=== PATIENT | female | born 1960 | race Caucasian/White ===

== ENCOUNTER 2017-05-08 17:02 | Emergency (ER) | payer BC ==
[2017-05-08 17:07] VITALS: BP 184/81; PULSE 71; RESP 16; TEMP 96.8
--- NOTE | 2017-05-08 17:35 | XR ---
EXAMINATION TYPE: XR lumbar spine 2 or 3V DATE OF EXAM: 05/08/2017 COMPARISON: NONE HISTORY: Back pain TECHNIQUE: 3 views FINDINGS: The lumbar vertebra have fairly normal alignment. Posterior elements are intact. There is s ome spurring of the endplates. There is no significant disc space narrowing. Sacroiliac joints appear normal. There is no compression fracture. IMPRESSION: Mild degenerative spur formation. No fracture.
--- NOTE | 2017-05-08 17:38 | ED ---
Back Pain HPI - General Chief Complaint: Back Pain/Injury Stated Complaint: Left Back Leg Pain Time Seen by Provider: 05/08/17 17:16 Source: patient, RN notes reviewed Limitations: no limitations - History of Present Illness Initial Comments: This is a 57-year-old female with history of herniated lumbar discs who presents to the emergency department with chief complaint of low back pain. Patient states since yesterday she has been experiencing increasing amount of low back pain. She states she feels she may have herniated another disc. She reports she has had back surgery this past July 2016. She reports that she called her surgeon this morning who recommended that she contact her PCP for prescription for steroids. She is unable to follow up with her PCP until this coming Sunday. She presents today with request for steroids until she is able to follow up with PCP. Patient states that pain is localized to left side of the lumbar spine with radiation down posterior thigh. She describes the pain as sharp and stabbing. She reports that she takes gabapentin and 800 mg of ibuprofen 3 times a day for lumbar radiculopathy. She reports that this pain is similar to her previous history of herniated disks. She denies saddle parasthesias or loss of bladder or bowel function. Denies fever, chills, chest pain, shortness of breath, abdominal pain, nausea or vomiting, constipation or diarrhea, dysuria or hematuria, headache or vision changes. - Related Data Previous Rx's Medication Instructions Recorded predniSONE 20 mg PO BID #10 tab 05/08/17 Allergies Allergy/AdvReac Type Severity Reaction Status Date / Time No Known Allergies Allergy Verified 05/08/17 17:07 Review of Systems ROS Statement: Those systems with pertinent positive or pertinent negative responses have been documented in the HPI. ROS Other: All systems not noted in ROS Statement are negative. Past Medical History Past Medical History: Hyperlipidemia, Hypertension, Thyroid Disorder Additional Past Medical History / Comment(s): back pain History of Any Multi-Drug Resistant Organisms: None Reported Past Surgical History: Back Surgery, Tonsillectomy Past Psychological History: No Psychological Hx Reported Smoking Status: Former smoker Past Alcohol Use History: None Reported Past Drug Use History: None Reported General Exam - General Exam Comments Initial Comments: General: Awake and alert, well-developed; tearful and appears to be in pain. HEENT: Head atraumatic, normocephalic. Pupils are equal, round and reactive to light. Extraocular movements intact. Neck: Supple. Normal ROM. Cardiovascular: Regular rate and rhythm. No murmurs, rubs or gallops. Chest symmetrical. Respiratory: Lungs clear to auscultation bilaterally. No wheezes, rales or rhonchi. Normal respiratory effort with no use of accessory muscles. Musculoskeletal: Tenderness on palpation of left paraspinous muscles and SI joint. No bony point tenderness of vertebrae. Normal range of motion of lumbar spine. Sensation is intact. Pedal pulses 2+ equal and palpable bilaterally. Skin: Plover, warm and dry without rashes or lesions. Neurological: Alert and oriented x3. CN II-XII grossly intact. Speech is fluent and answers are appropriate. No focal neuro deficits. Psychiatric: Normal mood and affect. No overt signs of depression or anxiety noted. Limitations: no limitations Course Vital Signs 05/08/17 17:03 Temperature 96.8 F L Pulse Rate 71 Respiratory 16 Rate Blood Pressure 184/81 O2 Sat by Pulse 95 Oximetry Medical Decision Making - Medical Decision Making This is a 57-year-old female with history of herniated disks that presents today with complaint of acute on chronic low back pain with radiation down left posterior thigh. X-ray reveals no acute abnormalities. Shows mild degenerative spurring. Patient reports current low back pain feels like prior episodes of disc herniation. She requests a prescription for steroids until she is able to follow up with her primary care provider and back surgeon. She' ll be discharged home with a prescription for prednisone for the next 5 days. Patient is in agreement and voices understanding. All questions were answered. - Radiology Data Radiology results: report reviewed X-ray lumbar spine findings: The lumbar vertebra have fairly normal alignment. Posterior elements are intact. There is some spurring of the end plates. There is no significant disc space narrowing. Sacroiliac joints appear normal. There is no compression fracture. Impression: Mild degenerative spur formation. No fracture. Disposition Clinical Impression: Lumbar radiculopathy Disposition: HOME SELF-CARE Condition: Good Instructions: Lumbar Radiculopathy (ED) Additional Instructions: Please take medications as prescribed. Please follow up with primary care provider within 1-2 days and as scheduled. Return to emergency department if symptoms should worsen or any concerns arise. Prescriptions: predniSONE 20 mg PO BID #10 tab Referrals: Jacinto Saucedo DO [Primary Care Provider] - 1-2 days Time of Disposition: 17:48
== END 2017-05-08 17:56 | disposition home or self-care (01) ==
LOC: EC 17:02
DX: M54.16 Radiculopathy, lumbar region (principal); M46.06 Spinal enthesopathy, lumbar region; Z87.891 Personal history of nicotine dependence; Z98.890 Other specified postprocedural states
CPT/HCPCS: 72100; 99283

== ENCOUNTER → 2018-07-03 | Outpatient (CLI) | payer OTHER ==
--- NOTE | 2018-07-03 12:54 | CT ---
EXAMINATION TYPE: CT abdomen pelvis wo con DATE OF EXAM: 07/03/2018 COMPARISON: None HISTORY: Stimulator surgery 06-20-18, pain and spasms after voiding, abdominal pain and microscopic he maturia. CT DLP: 1907.9 mGycm Automated exposure control for dose reduction was used. TECHNIQUE: Helical acquisition of images was performed from the lung bases through the pelvis. FINDINGS: LUNG BASES: No significant abnormality is appreciated. LIVER/GB: There are scattered hypoattenuated hepatic lesions seen on image 53, 40, and 36 that are martínez bcentimeter and too small to accurately characterize. Within the left hepatic lobe there is a 2.0 cm simple cyst that is fluid attenuated. PANCREAS: No significant abnormality is seen. SPLEEN: No significant abnormality is seen. Multiple splenules are seen adjacent to the venetie spleen . ADRENALS: No nodularity or thickening. KIDNEYS: The kidneys have lobulated contours but are otherwise symmetric without hydronephrosis or ne phrolithiasis. FREE AIR: No free air is visualized URINARY BLADDER: Urinary bladder is incompletely distended and demonstrates bowel wall thickening, l ikely attributable to incomplete distention. Urinalysis could assess for cystitis. ADENOPATHY: No greater than 1 cm short axis lymph nodes are seen within the abdomen or pelvis given the limitation of lack of intravenous contrast. OSSEOUS STRUCTURES: Spinal nerve root stimulator is placed within the left gluteal soft tissues and e xtends through the subcutaneous tissues to enter the lower thoracic epidural space. This creates spra y artifact and limits evaluation of the stranding structures. At the lower thoracic levels (postsurgi kade site) of T9-T11 there is subcutaneous fat stranding and phlegmonous change. Lack of intravenous c ontrast limits evaluation for abscess. Multilevel degenerative change of the spine is mild to moderat e. BOWEL: There are a few scattered colonic diverticula are seen. No dilated large or small bowel is no casi. Mild amount of retained colonic stool is seen. Appendix is air-filled and within normal limits. OTHER: Abdominal aorta is of normal course and caliber. IMPRESSION: 1. SUBCUTANEOUS EDEMA AND PHLEGMONOUS CHANGES OVERLYING THE LOWER THORACIC SPINE AT THE SITE OF POSTS URGICAL CHANGE. MRI WITH CONTRAST COULD ASSESS FOR EPIDURAL FLUID COLLECTION, SUBCUTANEOUS FLUID MELODIE ECTION/ABSCESS OR FIBROSIS IF THERE IS FURTHER CLINICAL CONCERN. 2. URINARY BLADDER DEMONSTRATES BOWEL WALL THICKENING CIRCUMFERENTIALLY THAT IS LIKELY ATTRIBUTABLE T O INCOMPLETE DISTENTION HOWEVER CORRELATION WITH URINALYSIS COULD BE PERFORMED TO EXCLUDE CYSTITIS. 3. SIMPLE APPEARING HEPATIC CYST AND MULTIPLE SMALLER HYPOATTENUATED HEPATIC LESIONS THAT ARE TOO SMA LL TO ACCURATELY CHARACTERIZE.
== END ==
LOC: RADCTMAIN 12:14
PROVIDERS: ATTEND Family Medicine
DX: K76.89 Other specified diseases of liver (principal)
CPT/HCPCS: 74176

== ENCOUNTER → 2018-10-28 | Outpatient (CLI) | payer OTHER ==
--- NOTE | 2018-10-28 19:15 | BD ---
EXAMINATION TYPE: Axial Bone Density DATE OF EXAM: 10/28/2018 COMPARISON: NONE CLINICAL HISTORY: 58-year-old female disorder bone Height: 64 IN Weight: 220 LBS RISK FACTORS HISTORY OF: Surgery to Spine: YES LUMBAR AND THORACIC; SPINAL CORD STIMULATOR When: Active: MODERATE Postmenopausal woman: AGE 53 MEDICATIONS: Thyroid Medications: YES Which medication: Levothyroxine How Lon + YEARS Additional Medications: LEVOTHYROXINE, VIT D, GABAPENTIN, SPIROLACTONE, BLOOD PRESSURE MEDS, CYMBALTA , ASPIRIN, IBUPROFEN,ZINC, VIT C, FLONASE, WEIGHT LOSS PILL EXAM MEASUREMENTS: Bone mineral densitometry was performed using the [employer]. PT HAS A SPINAL CORD STIMULATOR THAT SHOWS UP IN LT HIP . Bone mineral density about the R hip (g/cm2): 0.887 Bone mineral density about the L hip (g/cm2): 1.025 T Score values are as follows: -----R Neck: -1.1 -----L Neck: -0.1 -----R Total: 1.1 -----L Total: 1.3 Bone mineral density BASELINE Bone mineral density about the L Wrist (g/cm2): 0.647 T Score values are as follows: -----Dist. R+U: 0.8 -----Prox. R+U: 0.0 -----Radius total: -0.4 Bone mineral density BASELINE IMPRESSION: Osteopenia (T Score between -2.5 and -1). There is slightly increased risk of fracture and the patient may be considered for treatment. Re-Screen 2-5 years. NOTE: T-SCORE=SD OF THE YOUNG ADULT MEAN.
--- NOTE | 2018-11-06 14:00 | MM ---
Reason for exam: screening (asymptomatic). Last mammogram was performed 3 years and 1 month ago. History: Patient is postmenopausal. Family history of breast cancer in paternal aunt at age 50. Physical Findings: A clinical breast exam by your physician is recommended on an annual basis and results should be correlated with mammographic findings. MG Screening Mammo w CAD Bilateral CC and MLO view(s) were taken. Prior study comparison: October 07, 2015, mammogram, [place] at [facility] [place]. The breast tissue is heterogeneously dense. This may lower the sensitivity of mammography. There is a 2mm group of calcifications in the upper outer quadrant at middle depth on the right breast. Left central outer focal asymmetry at middle depth. ASSESSMENT: Incomplete: need additional imaging evaluation, BI-RAD 0 RECOMMENDATION: Special view mammogram of both breasts. If lesion persists on supplemental views, image directed ultrasound is recommended. [facility] will attempt to contact patient to return for supplemental views and ultrasound if indicated.
== END ==
LOC: RADMAMWWP 14:40
PROVIDERS: ATTEND Family Medicine
DX: Z12.31 Encounter for screening mammogram for malignant neoplasm of breast (principal); M85.80 Other specified disorders of bone density and structure, unspecified site
CPT/HCPCS: 77067; 77080

== ENCOUNTER → 2018-11-11 | Outpatient (CLI) | payer OTHER ==
--- NOTE | 2018-11-11 15:03 | MM ---
Reason for exam: additional evaluation requested from abnormal screening. Last mammogram was performed less than 1 month ago. History: Patient is postmenopausal. Family history of breast cancer in paternal aunt at age 50. Physical Findings: Nurse did not find any significant physical abnormalities on exam. MG Work Up Mamm w CAD BILAT Bilateral ML view(s) were taken. CC with magnification and ML with magnification view(s) were taken of the right breast. Spot compression CC and spot compression MLO view(s) were taken of the left breast. Prior study comparison: October 28, 2018, bilateral MG screening mammo w CAD. October 07, 2015, mammogram, performed at [facility] [place]. There are scattered fibroglandular densities. Small group of 10 o'clock punctate, round right breast calcifications, new from 2016, 6 month follow up recommended. 3 o'clock focal asymmetry left breast has an appearance similar to 2016 or spot compression, 6 month follow up. These results were verbally communicated with the patient and result sheet given to the patient on 11/11/18. ASSESSMENT: Probably benign, BI-RAD 3 RECOMMENDATION: Follow-up diagnostic mammogram of both breasts in 6 months.
== END ==
LOC: RADMAMWWP 13:39
PROVIDERS: ATTEND Family Medicine
DX: R92.8 Other abnormal and inconclusive findings on diagnostic imaging of breast (principal)
CPT/HCPCS: 77066

== ENCOUNTER 2019-01-03 08:41 | Day surgery (SDC) | payer OTHER ==
[2018-12-31 14:12] VITALS: BMI 36.0
[~2019-01-03 08:41] MED LIST: LACTATED RINGERS 1,000 ML IV SCH
[2019-01-03 09:19] VITALS: TEMP 98.2
[2019-01-03] MEDS ORDERED: LIDOCAINE 1% 20 ML VIAL (10MG/ML) FOR IV START INTRADERMA ONE (09:45)
[2019-01-03] MEDS ORDERED: MIDAZOLAM 2 MG/2 ML VIAL ONE (10:12)
[2019-01-03] MEDS ORDERED: PROPOFOL 10 MG/ML 20 ML VIAL IV ONE (10:12)
[2019-01-03] MEDS ORDERED: fentaNYL (PF) 50 MCG/ML 2 ML AMP ONE (10:12)
--- NOTE | 2019-01-03 10:26 | P.GSHP ---
History of Present Illness H&P Date: 01/03/19 Chief Complaint: Colon cancer screening Patient here today for colonoscopy. Last colonoscopy 3 years ago. She apparently had a rectal adenomatous polyp at that time. Patient has complaints of constipation. Family history of colon cancer in a polyp in her father. Past Medical History Past Medical History: Hyperlipidemia, Hypertension, Osteoarthritis (OA), Sleep Apnea/CPAP/BIPAP, Thyroid Disorder Additional Past Medical History / Comment(s): migraines, palpitations, hx heart murmer, not using CPAP, IBS, chronic back pain, degenerative disks, herniated disks, spondylosis, urinary leakage, hx polyps History of Any Multi-Drug Resistant Organisms: None Reported Past Surgical History: Adenoidectomy, Back Surgery, Tonsillectomy Additional Past Surgical History / Comment(s): disectomy, laminectomy, colonoscopy Past Anesthesia/Blood Transfusion Reactions: No Reported Reaction Smoking Status: Former smoker - Past Family History Father Family Medical History: Cancer, Deep Vein Thrombosis (DVT), Pulmonary Embolus Medications and Allergies Home Medications Medication Instructions Recorded Confirmed Type Aspirin 325 mg PO DAILY 12/31/18 12/31/18 History Carvedilol [Coreg] 25 mg PO BID 12/31/18 12/31/18 History DULoxetine HCL [Cymbalta] 30 mg PO QAM 12/31/18 01/03/19 History DULoxetine HCL [Cymbalta] 60 mg PO HS 12/31/18 12/31/18 History Gabapentin 600 mg PO TID 12/31/18 12/31/18 History Gabapentin [Neurontin] 100 mg PO TID 12/31/18 12/31/18 History Ibuprofen [Motrin] 400 mg PO TID 12/31/18 12/31/18 History Levothyroxine Sodium [Synthroid] 100 mcg PO DAILY 12/31/18 12/31/18 History Loratadine [Claritin] 10 mg PO DAILY 12/31/18 12/31/18 History Phentermine HCl [Adipex-P] 37.5 mg PO 1400 12/31/18 12/31/18 History Spironolactone [Aldactone] 25 mg PO DAILY 12/31/18 12/31/18 History Allergies Allergy/AdvReac Type Severity Reaction Status Date / Time No Known Allergies Allergy Verified 01/03/19 09:01 Surgical - Exam Vital Signs Temp Pulse Resp BP Pulse Ox 98.2 F 65 18 140/67 99 01/03/19 09:09 01/03/19 09:09 01/03/19 09:09 01/03/19 09:09 01/03/19 09:09 Physical exam: General: Well-developed, well-nourished HEENT: Normocephalic, sclerae nonicteric Abdomen: Nontender, nondistended Extremities: No edema Neuro: Alert and oriented Assessment and Plan (1) Adenomatous colon polyp Narrative/Plan: Will proceed with colonoscopy at this time Current Visit: Yes Status: Acute Code(s): D12.6 - BENIGN NEOPLASM OF COLON, UNSPECIFIED SNOMED Code(s): 526763476
--- NOTE | 2019-01-03 10:41 | P.PCN ---
Date of Procedure: 01/03/19 Procedure(s) Performed: PREOPERATIVE DIAGNOSIS: Colon cancer screening POSTOPERATIVE DIAGNOSIS: Mild diverticulosis PROCEDURE: Colonoscopy ANESTHESIA: MAC SURGEON: Fish Silva M.D. SPECIMENS: None ENDOSCOPIC PROCEDURE: The patient was placed on the endoscopy table in the left decubitus position. The Olympus colonoscope was inserted into the anus and passed under direct visualization to the base of the cecum. The appendiceal orifice was visualized. From that point the scope was slowly withdrawn inspecting all surfaces carefully. There were no neoplastic inflammatory or polypoid lesions throughout the cecum, ascending, transverse, descending, sigmoid and rectum. There was mild sigmoid diverticulosis noted. Patient's prep was somewhat suboptimal. Digital rectal examination was normal. The patient was taken to the recovery room in stable condition per anesthesia guidelines. RECOMMENDATIONS: Increase fiber. Follow colonoscopy in 5 years.
[2019-01-03 10:52] VITALS: RESP 16
[2019-01-03 11:11] VITALS: BP 134/81; PULSE 55
== END 2019-01-03 11:29 | disposition home or self-care (01) ==
LOC: ORWHC2ENDO 08:41
PROVIDERS: ATTEND Surgery
DX: K57.90 Diverticulosis of intestine, part unspecified, without perforation or abscess without bleeding (principal); Z80.0 Family history of malignant neoplasm of digestive organs; Z86.010 Personal history of colon polyps; E78.5 Hyperlipidemia, unspecified; I10 Essential (primary) hypertension; M19.90 Unspecified osteoarthritis, unspecified site; G47.33 Obstructive sleep apnea (adult) (pediatric); E07.9 Disorder of thyroid, unspecified; R00.2 Palpitations; R01.1 Cardiac murmur, unspecified; K58.9 Irritable bowel syndrome, unspecified; G43.909 Migraine, unspecified, not intractable, without status migrainosus; G89.29 Other chronic pain; M54.9 Dorsalgia, unspecified; R32 Unspecified urinary incontinence; Z87.891 Personal history of nicotine dependence; Z97.2 Presence of dental prosthetic device (complete) (partial); Z79.1 Long term (current) use of non-steroidal anti-inflammatories (NSAID); Z79.82 Long term (current) use of aspirin; Z79.899 Other long term (current) drug therapy; Z79.890 Hormone replacement therapy
CPT/HCPCS: 45378; J2250; J3010; J2704

== ENCOUNTER → 2019-05-23 | Outpatient (CLI) | payer MEDICARE ==
--- NOTE | 2019-05-26 08:56 | MM ---
Reason for exam: follow-up at short interval from prior study. Last mammogram was performed 6 months ago. History: Patient is postmenopausal. Family history of breast cancer in paternal aunt at age 50. Physical Findings: Nurse did not find any significant physical abnormalities on exam. MG Diagnostic Mammo w CAD TEJAL Bilateral CC and MLO view(s) were taken. Prior study comparison: November 11, 2018, bilateral MG work up mamm w CAD BILAT. October 28, 2018, bilateral MG screening mammo w CAD. The breast tissue is heterogeneously dense. This may lower the sensitivity of mammography. No suspicious abnormality on the right. Left upper outer quadrant focal asymmetry at middle depth is less conspicuous than on the prior exams. Precautionary 1 year follow up diagnostic exam. These results were verbally communicated with the patient and result sheet given to the patient on 05/23/19. ASSESSMENT: Probably benign, BI-RAD 3 RECOMMENDATION: Follow-up diagnostic mammogram of both breasts in 1 year.
== END | disposition home or self-care (01) ==
LOC: RADMAMWWP 14:03
PROVIDERS: ATTEND Family Medicine
DX: R92.8 Other abnormal and inconclusive findings on diagnostic imaging of breast (principal)
CPT/HCPCS: 77066

== ENCOUNTER → 2020-09-03 | Outpatient (CLI) | payer MEDICARE ==
--- NOTE | 2020-09-03 13:45 | MM ---
Reason for exam: additional evaluation requested from prior study. Last mammogram was performed 1 year and 3 months ago. History: Patient is postmenopausal. Family history of breast cancer in paternal aunt at age 50. Took hormonal contraceptives for 2 years beginning at age 17. Physical Findings: Nurse did not find any significant physical abnormalities on exam. MG Diagnostic Mammo w CAD TEJAL Bilateral CC and MLO view(s) were taken. Prior study comparison: May 23, 2019, bilateral MG diagnostic mammo w CAD TEJAL. November 11, 2018, bilateral MG work up mamm w CAD BILAT. Focal asymmetry left breast, stable. No significant new findings when compared with previous films. These results were verbally communicated with the patient and result sheet given to the patient on 09/03/20. ASSESSMENT: Benign, BI-RAD 2 RECOMMENDATION: Routine screening mammogram of both breasts in 1 year.
== END | disposition home or self-care (01) ==
LOC: RADMAMWWP 13:00
PROVIDERS: ATTEND Family Medicine
DX: R92.2 Inconclusive mammogram (principal)
CPT/HCPCS: 77066

== ENCOUNTER → 2021-11-15 | Outpatient (CLI) | payer MEDICARE ==
--- NOTE | 2021-11-18 09:32 | MM ---
Reason for exam: screening (asymptomatic). Last mammogram was performed 1 year and 2 months ago. History: Patient is postmenopausal. Family history of breast cancer in paternal aunt at age 50. Took hormonal contraceptives for 2 years beginning at age 17. Physical Findings: A clinical breast exam by your physician is recommended on an annual basis and results should be correlated with mammographic findings. MG Screening Mammo w CAD Bilateral CC and MLO view(s) were taken. Prior study comparison: September 03, 2020, bilateral MG diagnostic mammo w CAD TEJAL. May 23, 2019, bilateral MG diagnostic mammo w CAD TEJAL. There are scattered fibroglandular densities. Focal asymmetry in the left breast. No significant changes when compared with prior studies. ASSESSMENT: Benign, BI-RAD 2 RECOMMENDATION: Routine screening mammogram of both breasts in 1 year.
== END | disposition home or self-care (01) ==
LOC: RADMAMWWP 15:59
PROVIDERS: ATTEND Family Medicine
DX: Z12.31 Encounter for screening mammogram for malignant neoplasm of breast (principal); Z80.3 Family history of malignant neoplasm of breast
CPT/HCPCS: 77067

== ENCOUNTER → 2022-10-11 | Outpatient (CLI) | payer MEDICARE ==
--- NOTE | 2022-10-11 09:40 | USB ---
Reason for Exam: Clinical finding. Patient History: Menarche at age 13. First Full-Term at age 23. Postmenopausal. Hormonal Contraceptives for 2 years from age 17 until age 19. Paternal aunt had breast cancer, age 50. Risk Values: Gely 5 year model risk: 1.3%. NCI Lifetime model risk: 6.4%. Prior Study Comparison: 05/23/2019 Bilateral Diagnostic Mammogram, [facility]. 09/03/2020 Bilateral Diagnostic Mammogram, [facility]. 11/15/2021 Bilateral Screening Mammogram, [facility]. Findings: The lateral section of the breast of the left breast, the axilla of the left breast and the retroareolar of the left breast were scanned. There is a 2.8 x 1.5 x 1.7 cm spiculated hypoechoic area with indistinct margins and some posterior shadowing. Findings are suggestive for malignancy. Within the left axilla there is a 0.6 x 1.1 cm lymph node. I was present with thickened cortex is 0.47 cm. Normal less than 0.3 cm. Some additional lymphadenopathy appears to be present. Overall Assessment: Highly suggestive of malignancy, BI-RAD 5 Management: Surgical Consultation of the left breast. Ultrasound Core Biopsy of the left breast. A clinical breast exam by your physician is recommended on an annual basis and results should be correlated with mammographic findings. This exam should not preclude additional follow-up of suspicious palpable abnormalities. Results were given to the patient verbally at the time of exam. Electronically signed and approved by: Marvel Cunningham D.O. Radiologis
--- NOTE | 2022-10-11 15:39 | BD ---
EXAMINATION TYPE: Axial Bone Density DATE OF EXAM: 10/11/2022 CLINICAL HISTORY: 62 years old Female. ICD-10 CODE: N95.1 MENOPAUSAL AND FEMALE CLIMACTERIC Height: 5 ft 4 in Weight: 228 FRAX RISK QUESTIONS: Alcohol (3 or more units per day): no Family History (Parent hip fracture): no Glucocorticoids (More than 3mos): yes (Ex: prednisone, prednisolone, methylprednisolone, dexamethasone, and hydrocortisone). History of Fracture in Adulthood: yes Secondary Osteoporosis: 1. Type 1 Diabetes: no 2. Hyperthyroidism: no 3. Menopause before 45: no 4. Malnutrition: no 5. Chronic liver disease: no Rheumatoid Arthritis: no Current Tobacco Use: no RISK FACTORS HISTORY OF: Surgery to Spine/Hip(right/left)/Wrist (right/left): lumbar surg spinal cord stimulator When: 2015/ Family History of Osteoporosis: no Active: yes Diet low in dairy products/other sources of calcium: no Postmenopausal woman: yes Take estrogen and/or progesterone medications: no Lost more than 2 inches in height since high school: no Frequent falls: yes Poor Health: fair Hyperparathyroidism: no Adrenal Insufficiency: no MEDICATIONS: Thyroid Medications: yes Which medication: levothyroxine How Lon years Additional Medications: levothyroxine, muscle relaxer, gabapentin, lisinopril , ibuprofen, carvedi lol, claritin, Dobutrex, h20 pill Additional History: Bone mineral density about the R hip (g/cm2): 0.916 Bone mineral density about the L hip (g/cm2): 0.998 T Score values are as follows: -----R Neck: -0.9 -----L Neck: -0.3 -----R Total: 0.7 -----L Total: 1.0 Z Score values are as follows: -----R Neck: -0.3 -----L Neck: 0.3 -----R Total: 0.8 -----L Total: 1.2 Bone mineral density has: decreased -4.1 % since study of: 2019 Bone mineral density about the L Wrist (g/cm2): 0.595 T Score values are as follows: -----Dist. R+U: -2.6 -----Prox. R+U: 0.0 -----Radius total: -1.3 Z Score values are as follows: -----Dist. R+U: -1.5 -----Prox. R+U: 1.0 -----Radius total: -0.3 baseline left forearm FRAX%s: The graph provided illustrates a 10.4 % chance for a major osteoporotic fx and a 0.6 % chance for the hips probability for fx in 10 years time. IMPRESSION: Osteoporosis (T Score less than -2.5). There is increased fracture risk and therapy is usually indicated based on age. Re-Screen 1-2 years. NOTE: T-SCORE=SD OF THE YOUNG ADULT MEAN.
--- NOTE | 2022-10-12 14:16 | MM ---
Reason for Exam: Clinical finding. Last screening mammogram was performed 10 month(s) ago. Indicated Problems: Nipple abnormality of the left side for 3 Month(s). Patient History: Menarche at age 13. First Full-Term at age 23. Postmenopausal. Hormonal Contraceptives for 2 years from age 17 until age 19. Paternal aunt had breast cancer, age 50. Risk Values: Gely 5 year model risk: 1.3%. NCI Lifetime model risk: 6.4%. Prior Study Comparison: 05/23/2019 Bilateral Diagnostic Mammogram, [facility]. 09/03/2020 Bilateral Diagnostic Mammogram, [facility]. 11/15/2021 Bilateral Screening Mammogram, [facility]. Tissue Density: There are scattered fibroglandular densities. Findings: Analyzed By CAD. The cranial caudal projection outer aspect middle 3:00 position is a 1.9 cm spiculated density. This is not as well identified on the mediolateral oblique view. This is an interval change from comparison. There is incomplete dispersed on compression. Biopsy is recommended. Ultrasound to complete the workup is recommended. Right breast appears stable. Overall Assessment: Incomplete: need additional imaging evaluation, BI-RAD 0 Management: Diagnostic Breast Ultrasound of the left breast. A clinical breast exam by your physician is recommended on an annual basis and results should be correlated with mammographic findings. This exam should not preclude additional follow-up of suspicious palpable abnormalities. Results were given to the patient verbally at the time of exam. Electronically signed and approved by: Marvel Cunningham D.O. Radiologis
== END | disposition home or self-care (01) ==
LOC: RADMAMWWP 07:43
PROVIDERS: ATTEND Family Medicine
DX: R92.8 Other abnormal and inconclusive findings on diagnostic imaging of breast (principal); N64.53 Retraction of nipple; M81.0 Age-related osteoporosis without current pathological fracture; Z78.0 Asymptomatic menopausal state; Z80.3 Family history of malignant neoplasm of breast
CPT/HCPCS: 77080; 77066; 76642; G0279; 77062

== ENCOUNTER → 2022-10-26 | Day surgery (SDC) | payer MEDICARE ==
--- NOTE | 2022-10-26 16:38 | MM ---
Reason for Exam: Post Procedure Mammogram. Last screening mammogram was performed 11 month(s) ago. Patient History: Menarche at age 13. First Full-Term at age 23. Postmenopausal. Hormonal Contraceptives for 2 years from age 17 until age 19. Paternal aunt had breast cancer, age 50. Risk Values: Gely 5 year model risk: 1.3%. NCI Lifetime model risk: 6.4%. Tissue Density: Left: There are scattered fibroglandular densities. Findings: Biopsy clip is along the medial margin of the left breast abnormality which corresponds to the ultrasound placement. The core markers between the 2 lymph nodes in the left axilla on the medial lateral view corresponding to the placement and ultrasound. Overall Assessment: Highly suggestive of malignancy, BI-RAD 5 Management: Surgical Consultation of the left breast. A clinical breast exam by your physician is recommended on an annual basis and results should be correlated with mammographic findings. This exam should not preclude additional follow-up of suspicious palpable abnormalities. Results were given to the patient verbally at the time of exam. Electronically signed and approved by: Marvel Cunningham D.O. Radiologis
--- NOTE | 2022-11-02 14:22 | USB ---
Risk Values: Gely 5 year model risk: 1.3%. NCI Lifetime model risk: 6.4%. Prior Study Comparison: 09/03/2020 Bilateral Diagnostic Mammogram, [facility]. 11/15/2021 Bilateral Screening Mammogram, [facility]. 10/11/2022 Bilateral MG 3D diag mammo w/cad TEJAL, [facility]. Pathology Description: Location: 3 o'clock. Marker Left Behind. Needle Type: Mammotome Cores: 5 Skin Nicks: 1 The procedure of ultrasound guided core biopsy was explained to the patient. Benefits, alternatives, and risks were discussed. An informed consent was then obtained. A timeout was performed. The patient was placed in supine positioning for imaging and for the procedure. The overlying skin was prepped and draped in usual sterile fashion. Lidocaine was utilized to anesthetize the skin. Lidocaine epinephrine was used as anesthetic into the subcutaneous tissue up to area of concern in the left breast. A small skin vickie was made with surgical scalpel. Under ultrasound guidance, a 12-gauge vacuum assisted biopsy gun device was used to obtain 4 core samples. A biopsy clip was left in lesion. Hydromark butterfly core marker was placed. The overlying skin was prepped and draped in usual sterile fashion. Lidocaine was utilized to anesthetize the skin. Lidocaine epinephrine was used as anesthetic into the subcutaneous tissue up to area of concern in the left breast. A small skin vickie was made with surgical scalpel. Under ultrasound guidance, a vacuum assistive device device was used to obtain 3 core samples. These appear to be through both abnormal lymph nodes during sampling. A biopsy clip was left between the lymph nodes. Hydromark coil core marker was placed. This is likely within the more proximal lymph node. The patient tolerated the procedure well without any immediate complication. The patient was kept in the radiology department for short stay after the procedure and then discharged home in stable condition. Postprocedure mammogram: The patient was transferred to mammography for physician ordered post procedure mammogram for clip placement verification. Impression: Successful ultrasound guided core biopsy of area of concern in the left breast, and 2 adjacent thick cortex lymph nodes in the left axilla. Full pathology results to follow. Recommendations: 1. Recommendations are pending pathology results. Pathology Results: Result: Malignant, Invasive lobular carcinoma. A. LEFT BREAST, 7:00, ULTRASOUND GUIDED NEEDLE CORE BIOPSY: Invasive lobular carcinoma. See Surgical Pathology Cancer Case Summary and Comment. B. LEFT AXILLA, NEEDLE CORE BIOPSY: Metastatic lobular breast carcinoma. See Surgical Pathology Cancer Case Summary and Comment. Pathology Description: Location: axilla. Marker Left Behind. Needle Type: Celero Cores: 3 Skin Nicks: 1 Overall Assessment: Malignant Management: Surgical Consultation of the left breast. Surgical consult for both sites. Electronically signed and approved by: Marvel Cunningham D.O. Radiologis
== END ==
LOC: RADUSWWP 12:50
PROVIDERS: ATTEND Family Medicine
DX: C50.912 Malignant neoplasm of unspecified site of left female breast (principal)
CPT/HCPCS: 88305; 88342; 88341; 77065; 19083; 19084; A4648

== ENCOUNTER → 2022-11-01 | Outpatient (CLI) | payer MEDICARE ==
[2022-11-01 13:28] VITALS: BP 115/76; PULSE 76; RESP 18; TEMP 98.1
--- NOTE | 2022-11-01 14:16 | P.GSHP ---
History of Present Illness H&P Date: 11/01/22 Chief Complaint: invasive lobular cancer left breast Martha is a 62 year old white female seen in consultation for Dr. Sevilla regarding a left breast invasive lobular cancer. She had a bilateral mammogram on 10-11-22 after which a left breast ultrasound was done. A 2.8 cm breast lesion was seen and an enlarged axillary node was also noted. Biopsy of both were done on 10-26-22. These showed invasive lobular cancer with disease in the axillary node. She had a routine physical exam with left nipple retraction which led to her mammogram. Her last mammogram was November 2021. She is not complaining of any lumps, masses or nodules of concern in either breast. She has not had any surgery on her breast. She is not complaining of any nipple discharge or skin changes otherwise. Caffeine: diet pepsi 3/4 day nicotine: stopped 20 years ago chocolate: daily BCP: stopped at 19 Family History: father: lung cancer paternal aunt: breast cancer sister: blood cancer/HGB high Hormonal History: menarche: 12 M1 breast fed: yes, age at first : 23 menopause: 53 hormones: none Surgical history: D&C back surgeries tonsil adn adenoid nasal polyps removed Medical History: HTN high cholesterol hypothyroid osteoporesis Social History: nicotine: stopped 20 years ago alcohol: none drugs: none - Constitutional Constitutional: Reports sweats, Denies chills, Denies fever - EENT Eyes: denies blurred vision, denies pain Ears: deny: decreased hearing, tinnitus Ears, nose, mouth and throat: Denies headache, Denies sore throat - Breasts Breasts: bilateral: as per HPI - Cardiovascular Cardiovascular: Denies chest pain, Denies shortness of breath - Respiratory Respiratory: Denies cough, Denies 7 - Gastrointestinal Gastrointestinal: Reports diarrhea, Denies abdominal pain, Denies nausea, Denies vomiting - Genitourinary (Female) Comment: ? kidney stone in past Genitourinary: Denies dysuria, Denies hematuria - Menstruation Menstruation: Reports postmenopausal - Musculoskeletal Musculoskeletal: Reports myalgias - Integumentary Integumentary: Reports as per HPI - Neurological Comment: spinal cord stimulator in place - Psychiatric Psychiatric: Denies anxiety, Denies depression - Endocrine Endocrine: Reports fatigue, Denies weight change - Hematologic/Lymphatic Comment: ? bleeding after dental work - Allergic/Immunologic Allergic/Immunologic: Reports seasonal allergies Past Medical History Past Medical History: Hyperlipidemia, Hypertension, Thyroid Disorder Additional Past Medical History / Comment(s): back pain History of Any Multi-Drug Resistant Organisms: None Reported Past Surgical History: Back Surgery, Tonsillectomy Additional Past Surgical History / Comment(s): spinal cord stimulator. Multiple back surg Past Anesthesia/Blood Transfusion Reactions: No Reported Reaction Past Psychological History: No Psychological Hx Reported Smoking Status: Former smoker Past Alcohol Use History: Rare Additional Past Alcohol Use History / Comment(s): quit 2004? Past Drug Use History: None Reported Medications and Allergies Home Medications Medication Instructions Recorded Confirmed Type DULoxetine HCL [Cymbalta] 30 mg PO QAM 12/31/18 11/01/22 History DULoxetine HCL [Cymbalta] 60 mg PO HS 12/31/18 11/01/22 History Gabapentin [Neurontin] 700 mg PO TID 12/31/18 11/01/22 History Ibuprofen [Motrin] 400 mg PO TID 12/31/18 11/01/22 History Levothyroxine Sodium [Synthroid] 100 mcg PO DAILY 12/31/18 11/01/22 History Loratadine [Claritin] 10 mg PO DAILY 12/31/18 11/01/22 History Phentermine HCl [Adipex-P] 37.5 mg PO 1400 12/31/18 11/01/22 History Spironolactone [Aldactone] 25 mg PO DAILY 12/31/18 11/01/22 History carvediloL [Coreg] 25 mg PO BID 12/31/18 11/01/22 History Cyanocobalamin/Cobamamide [Vitamin 1 tab SUBLINGUAL DAILY 10/12/22 11/01/22 History B-12 5,000 Mcg Tab Sl] Docusate Sodium 250 mg PO DAILY 10/12/22 11/01/22 History methocarbamoL [Methocarbamol] 500 mg PO DAILY 10/12/22 11/01/22 History Cholecalciferol [Vitamin D3 (25 25 mcg PO DAILY 11/01/22 11/01/22 History Mcg = 1000 Iu)] Rosuvastatin [Crestor] 10 mg PO HS 11/01/22 11/01/22 History lisinopriL [Prinivil] 20 mg PO DAILY 11/01/22 11/01/22 History Allergies Allergy/AdvReac Type Severity Reaction Status Date / Time No Known Allergies Allergy Verified 11/01/22 13:17 Surgical - Exam Vital Signs Temp Pulse Resp BP Pulse Ox 98.1 F 76 18 115/76 95 11/01/22 13:24 11/01/22 13:24 11/01/22 13:24 11/01/22 13:24 11/01/22 13:24 - General no distress - Eyes normal ocular movement - ENT no hearing loss - Neck trachea midline - Respiratory normal respiratory effort, clear to auscultation - Cardiovascular Rhythm: regular Heart Sounds: normal: S1, S2 - Abdomen Abdomen: soft, non tender, no guarding, no rigid, no rebound - Integumentary normal turgor - Neurologic no disoriented, no combative - Musculoskeletal uses a cane secondary to back pain - Psychiatric oriented to time, oriented to person, oriented to place, speech is normal, memory intact Breast Exam: BRA: XL sports bra inspection: A lateral grade 2/3 ptosis Palpation: Right breast: Multi-positional exam fiber cystic changes, no discrete dominant masses or nodules of concern Right axilla: No adenopathy of concern Left breast: Multi-positional exam fibrocystic changes questionable fullness in the lower lateral aspect of the breast, no distinct nipple retraction on today's exam Left axilla: No specific adenopathy appreciated Results Mammogram and ultrasound reviewed with Dr. Cunningham Assessment and Plan Assessment: Impression: Left breast core biopsy on revealed invasive lobular carcinoma in the left breast as well as a deposit in the left axillary lymph node Back pain with herniated disc HTN high cholesterol hypothyroid osteoporesis Plan: Presentation of case at tumor board Appointment medical oncology Appointment radiation oncology CC: Dr. Sevilla
== END ==
LOC: WWCWWP 13:04
PROVIDERS: ATTEND Surgery
DX: C50.912 Malignant neoplasm of unspecified site of left female breast (principal); E03.9 Hypothyroidism, unspecified; E78.00 Pure hypercholesterolemia, unspecified; I10 Essential (primary) hypertension; Z79.1 Long term (current) use of non-steroidal anti-inflammatories (NSAID); Z79.899 Other long term (current) drug therapy; Z80.1 Family history of malignant neoplasm of trachea, bronchus and lung; Z80.3 Family history of malignant neoplasm of breast; Z87.891 Personal history of nicotine dependence; M81.0 Age-related osteoporosis without current pathological fracture; M51.26 Other intervertebral disc displacement, lumbar region; Z79.890 Hormone replacement therapy

== ENCOUNTER → 2022-11-28 | Outpatient (CLI) | payer MEDICARE ==
--- NOTE | 2022-11-28 15:46 | XR ---
EXAMINATION TYPE: XR chest 2V DATE OF EXAM: 11/28/2022 COMPARISON: None HISTORY: 62-year-old female C50.919, presurgical evaluation TECHNIQUE: Frontal and lateral views FINDINGS: The cardiomediastinal silhouette, aorta, and pulmonary vasculature are within normal limits. Spinal s timulator extension along the lower thoracic spinal canal. Lungs and pleural spaces are clear. IMPRESSION: No acute cardiopulmonary process.
--- NOTE | 2022-11-28 19:21 | CT ---
EXAMINATION TYPE: CT lumbar spine wo con DATE OF EXAM: 11/28/2022 COMPARISON: None HISTORY: back pain, pre op CT DLP: 1617.3 mGycm CONTRAST: None TECHNIQUE: CT of the lumbar spine is performed on a spiral scan at 3 mm thick sections. Reconstructed images are performed in the coronal and sagittal planes. FINDINGS: T12-L1: No focal disc herniation or significant disc bulge is evident. No spinal canal stenosis or neural foraminal stenosis is present. L1-L2: Mild broad-based disc bulge is present. No spinal canal stenosis is present. Neural foramen ar e patent. L2-L3: Mild broad-based disc bulge is present with mild anterior thecal sac compression. No AP spinal canal stenosis present. Neural foramen are patent. L3-L4: Broad-based disc bulge is present with significant anterior thecal sac compression. This is se verely compromising the spinal canal in conjunction with facet hypertrophy. AP spinal canal stenosis is present measuring 0.6 cm. Facet degenerative changes are present. Congenitally short pedicles are present. L4-L5: Disc bulging into the spinal canal appears to be present. The posterior wall is somewhat diffi cult to identify on this exam. Spinal canal stenosis is present. Facet degenerative changes are prese nt. There is made of vacuum disc phenomenon. Tiny amount of air may be within the suspected disc burton iation. L5-S1: Degenerative disc changes present with vacuum disc phenomenon. Broad right paracentral disc bu lge is present with extension into the right foramen. This is displacing the exiting right S1 nerve r oot posteriorly. Correlate with the radicular symptoms. Disc herniation comes in close approximation with the thecal sac. No displacement or compression is evident however. Vertebral alignment appears normal. IMPRESSION: 1. Right paracentral disc herniation L5-S1 displacing the right S1 nerve root. Correlate with radicu lar symptoms. 2. Large central disc bulge L4-5. The extent is somewhat difficult to identify in this examination. S tutu canal stenosis appears to be present. 3. Severe spinal canal stenosis L3-L4 due to disc bulging and marked facet hypertrophy with posterior thecal sac compression.
== END | disposition home or self-care (01) ==
LOC: RADCTMAIN 09:03
PROVIDERS: ATTEND Neurological Surgery
DX: Z01.818 Encounter for other preprocedural examination (principal); C50.919 Malignant neoplasm of unspecified site of unspecified female breast; M48.061 Spinal stenosis, lumbar region without neurogenic claudication; M51.27 Other intervertebral disc displacement, lumbosacral region; M47.816 Spondylosis without myelopathy or radiculopathy, lumbar region
CPT/HCPCS: 71046; 72131

== ENCOUNTER → 2022-12-15 | Outpatient (CLI) | payer MEDICARE ==
--- NOTE | 2022-12-15 14:12 | P.PN ---
Subjective Progress Note Date: 12/15/22 History of Present Illness H&P Date: 11/01/22 Chief Complaint: invasive lobular cancer left breast Martha is a 62 year old white female seen in consultation for Dr. Sevilla regarding a left breast invasive lobular cancer. She had a bilateral mammogram on 10-11-22 after which a left breast ultrasound was done. A 2.8 cm breast lesion was seen and an enlarged axillary node was also noted. Biopsy of both were done on 10-26-22. These showed invasive lobular cancer with disease in the axillary node. She had a routine physical exam with left nipple retraction which led to her mammogram. Her last mammogram was November 2021. She is not complaining of any lumps, masses or nodules of concern in either breast. She has not had any surgery on her breast. She is not complaining of any nipple discharge or skin changes otherwise. Tumor board was done on 5522 Recommendation for breast MRI this is been done but not yet read Genetic testing done revealed a variant of uncertain significance Her Oncotype is [address] Jones did not think she needed any neoadjuvant therapy. The patient underwent back surgery laminectomy at 2 levels on December 04 following the back surgery she developed a DVT and is presently on eliquis, she is on 10 mg twice a day for 1 week and then 5 twice a day for 4 weeks surgery will be rescheduled after she is off the eliquis. The patient was having an arterial Doppler of her right lower extremity secondary to leg cramping within the DVT was found incidentally. The patient is following up with the vascular surgery on January 02. At this time she is rescheduled for January 30. Tumor ER+CT+Her2-G2 invasive lobular Caffeine: diet pepsi 3/4 day nicotine: stopped 20 years ago chocolate: daily BCP: stopped at 19 Family History: father: lung cancer paternal aunt: breast cancer sister: blood cancer/HGB high Hormonal History: menarche: 12 M1 breast fed: yes, age at first : 23 menopause: 53 hormones: none Surgical history: D&C back surgeries tonsil adn adenoid nasal polyps removed Medical History: HTN high cholesterol hypothyroid osteoporesis Social History: nicotine: stopped 20 years ago alcohol: none drugs: none - Constitutional Constitutional: Reports sweats, Denies chills, Denies fever - EENT Eyes: denies blurred vision, denies pain Ears: deny: decreased hearing, tinnitus Ears, nose, mouth and throat: Denies headache, Denies sore throat - Breasts Breasts: bilateral: as per HPI - Cardiovascular Cardiovascular: Denies chest pain, Denies shortness of breath - Respiratory Respiratory: Denies cough - Gastrointestinal Gastrointestinal: Reports diarrhea, Denies abdominal pain, Denies nausea, Denies vomiting - Genitourinary (Female) Comment: ? kidney stone in past Genitourinary: Denies dysuria, Denies hematuria - Menstruation Menstruation: Reports postmenopausal - Musculoskeletal Musculoskeletal: Reports myalgias - Integumentary Integumentary: Reports as per HPI - Neurological Comment: spinal cord stimulator in place - Psychiatric Psychiatric: Denies anxiety, Denies depression - Endocrine Endocrine: Reports fatigue, Denies weight change - Hematologic/Lymphatic Comment: ? bleeding after dental work - Allergic/Immunologic Allergic/Immunologic: Reports seasonal allergies Past Medical History Past Medical History: Hyperlipidemia, Hypertension, Thyroid Disorder Additional Past Medical History / Comment(s): back pain History of Any Multi-Drug Resistant Organisms: None Reported Past Surgical History: Back Surgery, Tonsillectomy Additional Past Surgical History / Comment(s): spinal cord stimulator. Multiple back surg Past Anesthesia/Blood Transfusion Reactions: No Reported Reaction Past Psychological History: No Psychological Hx Reported Smoking Status: Former smoker Past Alcohol Use History: Rare Additional Past Alcohol Use History / Comment(s): quit 2004? Past Drug Use History: None Reported Medications and Allergies Home Medications Medication Instructions Recorded Confirmed Type DULoxetine HCL [Cymbalta] 30 mg PO QAM 12/31/18 11/01/22 History DULoxetine HCL [Cymbalta] 60 mg PO 12/31/18 11/01/22 History Gabapentin [Neurontin] 700 mg PO TID 12/31/18 11/01/22 History Ibuprofen [Motrin] 400 mg PO TID 12/31/18 11/01/22 History Levothyroxine Sodium [Synthroid] 100 mcg PO DAILY 12/31/18 11/01/22 History Loratadine [Claritin] 10 mg PO DAILY 12/31/18 11/01/22 History Phentermine HCl [Adipex-P] 37.5 mg PO 1400 12/31/18 11/01/22 History Spironolactone [Aldactone] 25 mg PO DAILY 12/31/18 11/01/22 History carvediloL [Coreg] 25 mg PO BID 12/31/18 11/01/22 History Cyanocobalamin/Cobamamide [Vitamin 1 tab SUBLINGUAL DAILY 10/12/22 11/01/22 History B-12 5,000 Mcg Tab Sl] Docusate Sodium 250 mg PO DAILY 10/12/22 11/01/22 History methocarbamoL [Methocarbamol] 500 mg PO DAILY 10/12/22 11/01/22 History Cholecalciferol [Vitamin D3 (25 25 mcg PO DAILY 11/01/22 11/01/22 History Mcg = 1000 Iu)] Rosuvastatin [Crestor] 10 mg PO HS 11/01/22 11/01/22 History lisinopriL [Prinivil] 20 mg PO DAILY 11/01/22 11/01/22 History Allergies Allergy/AdvReac Type Severity Reaction Status Date / Time No Known Allergies Allergy Verified 11/01/22 13:17 Objective - Constitutional General appearance: Present: cooperative - EENT Eyes: Present: EOMI ENT: Present: hearing grossly normal - Neck Neck: Present: normal ROM - Respiratory Respiratory: bilateral: CTA - Cardiovascular Rhythm: regular Heart sounds: normal: S1, S2 - Gastrointestinal General gastrointestinal: Present: soft - Integumentary Integumentary: Present: normal turgor - Musculoskeletal Musculoskeletal: Present: gait normal - Psychiatric Psychiatric: Present: A&O x's 3, appropriate affect, intact judgment & insight - Additional findings Additional findings: Breast Exam: form exam on 11-01-22 BRA: XL sports bra inspection: A lateral grade 2/3 ptosis Palpation: Right breast: Multi-positional exam fiber cystic changes, no discrete dominant masses or nodules of concern Right axilla: No adenopathy of concern Left breast: Multi-positional exam fibrocystic changes questionable fullness in the lower lateral aspect of the breast, no distinct nipple retraction on today's exam Left axilla: No specific adenopathy appreciated Assessment and Plan Assessment: Impression: Left breast core biopsy on revealed invasive lobular carcinoma in the left breast as well as a deposit in the left axillary lymph node Back pain with herniated disc, status post laminectomy on 12-04-22 HTN high cholesterol hypothyroid osteoporesis Plan: Presentation of case at tumor board done Reading MRI results Awaiting clearance from vascular surgery Preoperative clearance from Dr. Sevilla Surgery is been rescheduled to January 30 CC: Dr. Sevilla
== END ==
LOC: WWCWWP 13:09
PROVIDERS: ATTEND Surgery
DX: C50.912 Malignant neoplasm of unspecified site of left female breast (principal); E03.9 Hypothyroidism, unspecified; E78.00 Pure hypercholesterolemia, unspecified; I10 Essential (primary) hypertension; Z17.0 Estrogen receptor positive status [ER+]; Z80.3 Family history of malignant neoplasm of breast; Z80.1 Family history of malignant neoplasm of trachea, bronchus and lung; Z87.891 Personal history of nicotine dependence; Z98.890 Other specified postprocedural states

== ENCOUNTER → 2023-01-12 | Outpatient (CLI) | payer MEDICARE ==
--- NOTE | 2023-01-12 11:29 | USB ---
Reason for Exam: MRI abnormality. Patient History: Menarche at age 13. First Full-Term at age 23. Postmenopausal. Breast cancer, left, age 62. Hormonal Contraceptives for 2 years from age 17 until age 19. 10/26/2022, Malignant US biopsy breast VAD LT on the left side. 10/26/2022, US biopsy breast add'l VAD LT on the Left side. Paternal aunt had breast cancer, age 50. Technique: Method: Targeted. Prior Study Comparison: 11/15/2021 Bilateral Screening Mammogram, [facility]. 10/11/2022 Left US breast limited LT, [facility]. 10/11/2022 Bilateral MG 3D diag mammo w/cad TEJAL, [facility]. 10/26/2022 Left MG diagnostic mammo LT wo CAD., [facility]. Findings: The lateral section of the breast of the right breast, the axilla of the right breast and the retroareolar of the right breast were scanned. Target ultrasound right breast shows no worrisome solid or cystic mass on images obtained.. Overall Assessment: Suspicious, BI-RAD 4 Management: MRI-guided biopsy of the right breast. MRI guided sampling of the area of concern on MRI. No ultrasound correlate. Results were given to the patient verbally at the time of exam. Electronically signed and approved by: Sekou Galarza M.D.
--- NOTE | 2023-01-12 13:08 | P.PN ---
Subjective Progress Note Date: 01/12/23 Principal diagnosis: invasive lobular cancer left breast invasive lobular cancer left breast [id number]+Her2-G2 Martha is a 62 year old white female seen in consultation for Dr. Sevilla regarding a left breast invasive lobular cancer. She had a bilateral mammogram on 10-11-22 after which a left breast ultrasound was done. A 2.8 cm breast lesion was seen and an enlarged axillary node was also noted. Biopsy of both were done on 10-26-22. These showed invasive lobular cancer with disease in the axillary node. She had a routine physical exam with left nipple retraction which led to her mammogram. Her last mammogram was November 2021. She is not complaining of any lumps, masses or nodules of concern in either breast. She has not had any surgery on her breast. She is not complaining of any nipple discharge or skin changes otherwise. Tumor board was done on 5522 Recommendation for breast MRI done on 11-27-22; biopsy proven left bresaet and axilla cancer; ? spot in right breast ultrasound to eveluate recommended Genetic testing done revealed a variant of uncertain significance Her Oncotype is [address] Jones did not think she needed any neoadjuvant therapy. The patient underwent back surgery laminectomy at 2 levels on December 04 following the back surgery she developed a DVT and is presently on eliquis, she is on 10 mg twice a day for 1 week and then 5 twice a day for 4 weeks surgery will be rescheduled after she is off the eliquis. The patient was having an arterial Doppler of her right lower extremity secondary to leg cramping within the DVT was found incidentally. The patient is following up with the vascular surgery on January 02. At this time she is rescheduled for January 30. Tumor ER+UT+Her2-G2 invasive lobular Caffeine: diet pepsi 3/4 day nicotine: stopped 20 years ago chocolate: daily BCP: stopped at 19 Family History: father: lung cancer paternal aunt: breast cancer sister: blood cancer/HGB high Hormonal History: menarche: 12 M1 breast fed: yes, age at first : 23 menopause: 53 hormones: none Surgical history: D&C back surgeries tonsil adn adenoid nasal polyps removed Medical History: HTN high cholesterol hypothyroid osteoporesis Social History: nicotine: stopped 20 years ago alcohol: none drugs: none - Constitutional Constitutional: Reports sweats, Denies chills, Denies fever - EENT Eyes: denies blurred vision, denies pain Ears: deny: decreased hearing, tinnitus Ears, nose, mouth and throat: Denies headache, Denies sore throat - Breasts Breasts: bilateral: as per HPI - Cardiovascular Cardiovascular: Denies chest pain, Denies shortness of breath - Respiratory Respiratory: Denies cough - Gastrointestinal Gastrointestinal: Reports diarrhea, Denies abdominal pain, Denies nausea, Denies vomiting - Genitourinary (Female) Comment: ? kidney stone in past Genitourinary: Denies dysuria, Denies hematuria - Menstruation Menstruation: Reports postmenopausal - Musculoskeletal Musculoskeletal: Reports myalgias - Integumentary Integumentary: Reports as per HPI - Neurological Comment: spinal cord stimulator in place - Psychiatric Psychiatric: Denies anxiety, Denies depression - Endocrine Endocrine: Reports fatigue, Denies weight change - Hematologic/Lymphatic Comment: ? bleeding after dental work - Allergic/Immunologic Allergic/Immunologic: Reports seasonal allergies Past Medical History Past Medical History: Hyperlipidemia, Hypertension, Thyroid Disorder Additional Past Medical History / Comment(s): back pain History of Any Multi-Drug Resistant Organisms: None Reported Past Surgical History: Back Surgery, Tonsillectomy Additional Past Surgical History / Comment(s): spinal cord stimulator. Multiple back surg Past Anesthesia/Blood Transfusion Reactions: No Reported Reaction Past Psychological History: No Psychological Hx Reported Smoking Status: Former smoker Past Alcohol Use History: Rare Additional Past Alcohol Use History / Comment(s): quit 2004? Past Drug Use History: None Reported Medications and Allergies Home Medications Medication Instructions Recorded Confirmed Type DULoxetine HCL [Cymbalta] 30 mg PO QAM 12/31/18 11/01/22 History DULoxetine HCL [Cymbalta] 60 mg PO HS 12/31/18 11/01/22 History Gabapentin [Neurontin] 700 mg PO TID 12/31/18 11/01/22 History Ibuprofen [Motrin] 400 mg PO TID 12/31/18 11/01/22 History Levothyroxine Sodium [Synthroid] 100 mcg PO DAILY 12/31/18 11/01/22 History Loratadine [Claritin] 10 mg PO DAILY 12/31/18 11/01/22 History Phentermine HCl [Adipex-P] 37.5 mg PO 1400 12/31/18 11/01/22 History Spironolactone [Aldactone] 25 mg PO DAILY 12/31/18 11/01/22 History carvediloL [Coreg] 25 mg PO BID 12/31/18 11/01/22 History Cyanocobalamin/Cobamamide [Vitamin 1 tab SUBLINGUAL DAILY 10/12/22 11/01/22 History B-12 5,000 Mcg Tab Sl] Docusate Sodium 250 mg PO DAILY 10/12/22 11/01/22 History methocarbamoL [Methocarbamol] 500 mg PO DAILY 10/12/22 11/01/22 History Cholecalciferol [Vitamin D3 (25 25 mcg PO DAILY 11/01/22 11/01/22 History Mcg = 1000 Iu)] Rosuvastatin [Crestor] 10 mg PO HS 11/01/22 11/01/22 History lisinopriL [Prinivil] 20 mg PO DAILY 11/01/22 11/01/22 History Allergies Allergy/AdvReac Type Severity Reaction Status Date / Time No Known Allergies Allergy Verified 11/01/22 13:17 Objective - Constitutional General appearance: Present: cooperative - EENT Eyes: Present: EOMI ENT: Present: hearing grossly normal - Neck Neck: Present: normal ROM - Respiratory Respiratory: bilateral: CTA - Cardiovascular Rhythm: regular Heart sounds: normal: S1, S2 - Gastrointestinal General gastrointestinal: Present: soft - Integumentary Integumentary: Present: normal turgor - Musculoskeletal Musculoskeletal: Present: gait normal - Psychiatric Psychiatric: Present: A&O x's 3, appropriate affect, intact judgment & insight - Additional findings Additional findings: Breast Exam: exam on 11-01-22 BRA: XL sports bra inspection: bilateral grade 2/3 ptosis Palpation: Right breast: Multi-positional exam fibrocystic changes, no discrete dominant masses or nodules of concern Right axilla: No adenopathy of concern Left breast: Multi-positional exam fibrocystic changes questionable fullness in the lower lateral aspect of the breast, no distinct nipple retraction on today's exam Left axilla: No specific adenopathy appreciated Assessment and Plan Assessment: Impression: Left breast core biopsy on revealed invasive lobular carcinoma in the left breast as well as a deposit in the left axillary lymph node Back pain with herniated disc, status post laminectomy on 12-04-22 HTN high cholesterol hypothyroid osteoporesis DVT bilateral on eliquis recent MRI ? lesion right breast Plan: Presentation of case at tumor board done [place] MRI results questionable lesion in the right breast, increased activity corresponding to biopsy-proven left breast cancer and axillary node Awaiting clearance from vascular surgery Preoperative clearance from Dr. Sevilla/patient to be placed on Lovenox as per Dr. Sevilla Surgery is been rescheduled to January 30 Patient is going to have an MRI guided right breast biopsy. Needle Localization left breast lumpectomy, left breast sentinel node injection, left breast sentinel node biopsy possible axillary node dissection, needle localization of positive left breast lymph node with resection, possible onco-plastic tissue transfer I discussed with the patient and her daughter today that the MRI performed on revealed a questionable lesion in the right breast. We could not see anything to correspond to this on ultrasound or mammogram. Therefore it is recommended as per radiology that an MRI guided sampling the performed. The patient and her daughter understand that this will be scheduled but we cannot say for sure when this will be done. She would like to proceed with the left breast surgery. She understands that if the biopsy on the right breast were to be positive for cancer she would have to have another operation performed. Risk and benefits of the left breast surgery are discussed with the patient and her daughter. Risks include but are not limited to bleeding, infection, reaction to the anesthetic. If the margins were to be positive additional tissue would need to be removed. If the needle were to move in inadequate tissue were removed and additional tissue would need to be removed. Additionally dissection in the axilla can result in decreased sensation to the upper arm, injury to the thoracodorsal or long thoracic nerves, or lymphedema. They understand and wish to proceed. At this time she is being scheduled for MRI guided right breast biopsy however we are not going to delay the surgery on the left breast to wait for those results. CC: Dr. Sevilla
== END | disposition home or self-care (01) ==
LOC: RADUSWWP 10:23
PROVIDERS: ATTEND Surgery
DX: R92.8 Other abnormal and inconclusive findings on diagnostic imaging of breast (principal); Z78.0 Asymptomatic menopausal state; Z80.3 Family history of malignant neoplasm of breast

== ENCOUNTER → 2023-01-12 | Outpatient (CLI) | payer MEDICARE | LOC: WWCWWP 10:30 | PROVIDERS: ATTEND Surgery | DX: Z53.9 Procedure and treatment not carried out, unspecified reason (principal) ==

== ENCOUNTER 2023-01-30 12:48 | Day surgery (SDC) | payer MEDICARE, OTHER ==
[2023-01-26 18:20] VITALS: BMI 39.4
[~2023-01-30 12:48] MED LIST changes: +DEXAMETHASONE SOD PHOSPHATE 4 MG/ML 1 ML VIAL IV ONE; +HEPARIN SODIUM,PORCINE/PF 5,000 UNIT/0.5 ML SYRINGE SQ PRN; +HYDROmorphone 0.5 MG/0.5 ML SYRINGE IVP PRN; +LIDOCAINE 1% (10MG/ML) FOR IV START INTRADERMA PRN; +MIDAZOLAM 2 MG/2 ML VIAL IV PRN; +ONDANSETRON 4 MG/2 ML VIAL IVP ONE; +Pre Op ABX Message 1 EACH MISC MISCELLANE ONE
[2023-01-30] MEDS ORDERED: LACTATED RINGERS 1,000 ML IV ONE (12:57)
[2023-01-30] MEDS ORDERED: LIDOCAINE 1% INJ 10MG/ML (20 ML MDV) SQ ONE (14:15)
--- NOTE | 2023-01-30 15:30 | P.NAPBC ---
NAPBC Queries - NAPBC Queries Was patient's case review presented at [facility] tumor board? If no, comment.: Yes Was patient's pathology reviewed at [facility]? If no, comment.: Yes Was breast conservation surgery offered? If no, comment.: Yes Was sentinel node biopsy offered? If no, comment.: Yes Was diagnosis confirmed by percutaneous core biopsy? If no, comment.: Yes Is patient mastectomy patient?: No Was a preop referral to reconstructive surgeon offered?: No Clinical Stage: left breast invasive lobular cancer [id number]+Her2-G2
[2023-01-30] MEDS ORDERED: KETOROLAC 15 MG/ML 1 ML VIAL ONE (16:19)
[2023-01-30] MEDS ORDERED: PHENYLEPHRINE-0.9% NACL SYG 1,000 MCG/10 ML SYRINGE ONE (16:19)
[2023-01-30] MEDS ORDERED: MIDAZOLAM 2 MG/2 ML VIAL ONE (16:19)
[2023-01-30] MEDS ORDERED: PROPOFOL 10 MG/ML 20 ML VIAL IV ONE (16:19)
[2023-01-30] MEDS ORDERED: LIDOCAINE 2% INJ 20 MG/ML (2 ML VIAL) ONE (16:19)
[2023-01-30] MEDS ORDERED: ePHEDrine 50 MG/ML 1 ML VIAL ONE (16:19)
[2023-01-30] MEDS ORDERED: GLYCOPYRROLATE 0.2 MG/ML 2 ML VIAL ONE (16:19)
[2023-01-30] MEDS ORDERED: fentaNYL (PF) 50 MCG/ML 2 ML AMP ONE (16:19)
[2023-01-30] MEDS ORDERED: SODIUM CHLORIDE 0.9% 100 ML BAG ONE ×2 (16:24→16:43)
[2023-01-30] MEDS ORDERED: ceFAZolin 1,000 MG VIAL ONE ×2 (16:24→16:43)
[2023-01-30] MEDS ORDERED: SODIUM CHLORIDE 0.9% 100 ML with ceFAZolin 2,000 MG IV ONE ×2 (16:24)
--- NOTE | 2023-01-30 16:27 | NM ---
EXAMINATION TYPE: NM sentinel node injection DATE OF EXAM: 01/30/2023 COMPARISON: 10/26/2022 CLINICAL INDICATION: Female, 62 years old with history of LEFT BREAST CA; TECHNIQUE AND FINDINGS: The procedure of sentinel lymph node injection was explained to the patient. The benefits, alternatives, and risks were discussed. An informed consent was then obtained. Overlying skin is cleaned with sterile alcohol. Following this, 479 uCi Tc99m Tilmanocept was inject ed in the upper outer aspect of the left nipple intradermally. The patient tolerated the procedure well without any immediate complication. The patient was kept in the radiology department for short stay after the procedure and then taken to surgery for surgical p rocedure what is presumed intraoperative gamma probe will be used for sentinel lymph node detection. IMPRESSION: Left breast radiotracer injection for sentinel node localization as above.
--- NOTE | 2023-01-30 18:04 | MM ---
EXAM: MG pre op needle loc LT, MG surgical specimen LT, MG surgical specimen LT, US breast localizati on LT DATE OF EXAM: 01/30/2023 COMPARISON: 11/15/2021 Bilateral Screening Mammogram, [facility]. 10/11/2022 Bilateral MG 3D diag mammo w/cad TEJAL, [facility]. 10/26/2022 Left MG diagnostic mammo LT wo CAD., [facility]. (accession [id number]), 11/15/2021 Bilater al Screening Mammogram, [facility]. 10/11/2022 Left US breast limited LT, [facility]. 10/11/2022 Bilateral MG 3D diag mammo w/cad TEJAL, [facility]. 10/26/2022 Left MG diagnostic mammo LT wo CAD., [facility]. (accession [id number]) DESCRIPTION: The procedure of needle localization with wire placement and than surgical excision was explained to the patient. Benefits, alternatives, and risks were discussed. An informed consent was then obtaine d. (1) Mammo Loc, 3:00 left breast cancer: The shortest pathway for procedure was chosen. Shortest path way was a lateral approach. The overlying skin was prepped and draped in usual sterile fashion. Lido hansa was used as anesthetic into the skin and subcutaneous tissue up to the level of area of concern . A 7 cm Kopan's needle was used. It was placed via a lateral approach under mammographic guidance. Subsequent 90 degrees mammogram show the needle to be in satisfactory position relative to the targe casi area. At this point, wire was placed and the needle was withdrawn. The wire was fixed to patien t's skin. Images were marked for surgeon. (2) Ultrasound Loc, positive axillary nodes: The 2 adjacent, previously biopsied axillary nodes are i dentified, one of which contains the microclip from prior biopsy. A lateral approach was utilized wit h ultrasound guidance. The overlying skin was prepped and draped in usual sterile fashion. Lidocaine was used as anesthetic into the skin and subcutaneous tissue up to the level of area of concern. A 7 cm Kopan's needle was used. It was placed via a lateral approach under ultrasound guidance. The ne edle passed through both lymph nodes. The needle tip extended just beyond the second node. At this po int, wire was placed and the needle was withdrawn. The wire was fixed to patient's skin. The wire ho ok was just beyond the second node. Images were marked for surgeon. The patient tolerated the procedure well without any immediate complication. The patient was kept in the radiology department for short stay after the procedure and then taken to surgery for surgical e xcision. Targeted clips, nodes/density and wire are identified in both specimen mammogram. We are notified lazaro t additional margin is obtained at the site of left breast cancer excision. The patient was kept in hospital for short stay after the procedure and then discharged home in stabl e condition. IMPRESSION: Successful, uncomplicated needle localization with wire placement and surgical excision of (1) 3:00 l eft breast cancer and (2) positive left axillary nodes. Full pathology results to follow.
--- NOTE | 2023-01-30 18:05 | P.PN ---
Progress Note - Text Progress Note Date: 01/30/23 In the immediate pre-operative period I was called and told that the patient did indeed have a biopsy of the right breast and the biopsy results revealed an invasive ductal carcinoma as well as DCIS. At this point the patient already had a needle localization of the left axillary nodes and the left cancer. The patient was in the preoperative area and waiting to come back immediately to surgery. I discussed with radiology and they felt that the could not fully evaluate the patient's right breast as her radiographs/MRI were not available. Her biopsy had been done via MRI and repair. Additionally I spoke with the application services manager who stated that if we would try to do localization of the right side today that the case would be very delayed and it would be very difficult to accomplish and she recommended strongly against us doing this. Additionally we were uncertain as to whether we could get radiotracer to do a sentinel node biopsy. Additionally the insurance company had not given approval for surgery on the right side. All of these factors were discussed with the patient and her family. With this scenario it was felt that it was best to take care of the pathology in the left breast today as had been planned and in a non-hurried manner take care of the cancer in the right breast after things have been fully evaluated and worked up. The patient, and her son and daughter were all present and given the option of postponing surgery versus proceeding with the treatment of the left breast cancer. They wished to proceed with the treatment of the left breast cancer. She understands that it will necessitate another operation on the right breast.
--- NOTE | 2023-01-30 18:11 | P.OP ---
Date of Procedure: 01/30/23 Preoperative Diagnosis: Left breast invasive lobular cancer, positive axillary lymph node Postoperative Diagnosis: Same Procedure(s) Performed: Left breast needle localization lumpectomy, left breast axillary node dissection after localization, left sentinel node biopsy Anesthesia: GETA Estimated Blood Loss (ml): 10 IV fluids (ml): 700 Pathology: other (Left breast tissue, left axillary tissue) Condition: stable Disposition: same day Indications for Procedure: Left breast invasive carcinoma Operative Findings: Dense breast tissue Description of Procedure: The patient was taken to the operating room following needle localization of the cancer in the left breast as well as the left axillary lymph nodes and sentinel node injection. She was brought to the operative suite and following induction of anesthesia the left axilla was interrogated with the neoprobe. Radioactivity was identified. The left breast and axilla were prepped and draped in a sterile fashion. An incision was made in the left axilla and carried down to the area of the localized lymph nodes. This area was resected. Additionally the neoprobe was utilized to interrogate this area and one of the nodes and the specimen was noted to be radioactive. The 10 second count on [id number]. The 10 second background count was 21. No additional adenopathy of concern was identified. After assured that hemostasis was attained the deep tissues were closed using 3-0 Vicryl suture. The skin was closed using 4-0 Monocryl. The specimen was sent to radiology and radiograph of the specimen revealed that the area of concern had been adequately removed. The area of the left breast was approached. An incision was made at the shaft of the needle. The surrounding tissue was excised. Wide excision was performed. The specimen was removed and painted for orientation. The radiograph of the specimen revealed the area of concern had been removed. Additional anterior tissue was removed this included the skin, posterior dissection was to the pectoralis muscle. Superior, inferior, and medial margins were obtained. After assured that hemostasis was attained the wound was well irrigated. Titanium clips were placed. Surgicel in powder form was placed. The deep tissues were brought together using 3-0 Vicryl suture. The subcutaneous tissue was closed using 3-0 Vicryl suture. This was followed by closure of the skin with 4-0 Monocryl.
--- NOTE | 2023-01-30 18:13 | P.DS ---
Providers Attending physician: Mayelin Green Primary care physician: Arlette Sevilla Plan - Discharge Summary Discharge Rx Participant: Yes New Discharge Prescriptions: New HYDROcodone/APAP 5-325MG [[place] 5] 1 - 2 each PO Q6HR PRN #20 tab PRN Reason: Pain No Action Phentermine HCl [Adipex-P] 37.5 mg PO DAILY Levothyroxine Sodium [Synthroid] 100 mcg PO QAM DULoxetine HCL [Cymbalta] 60 mg PO HS Loratadine [Claritin] 10 mg PO DAILY DULoxetine HCL [Cymbalta] 30 mg PO QAM carvediloL [Coreg] 25 mg PO BID Spironolactone [Aldactone] 25 mg PO DAILY Gabapentin [Neurontin] 700 mg PO TID Docusate Sodium 250 mg PO DAILY methocarbamoL [Methocarbamol] 500 mg PO TID Cholecalciferol [Vitamin D3 (25 Mcg = 1000 Iu)] 25 mcg PO DAILY lisinopriL [Prinivil] 20 mg PO QAM Enoxaparin [Lovenox] 100 mg SQ HS Apixaban [Eliquis] 5 mg PO BID Discharge Medication List DULoxetine HCL [Cymbalta] 30 mg PO QAM 12/31/18 [History] DULoxetine HCL [Cymbalta] 60 mg PO HS 12/31/18 [History] Gabapentin [Neurontin] 700 mg PO TID 12/31/18 [History] Levothyroxine Sodium [Synthroid] 100 mcg PO QAM 12/31/18 [History] Loratadine [Claritin] 10 mg PO DAILY 12/31/18 [History] Phentermine HCl [Adipex-P] 37.5 mg PO DAILY 12/31/18 [History] Spironolactone [Aldactone] 25 mg PO DAILY 12/31/18 [History] carvediloL [Coreg] 25 mg PO BID 12/31/18 [History] Docusate Sodium 250 mg PO DAILY 10/12/22 [History] methocarbamoL [Methocarbamol] 500 mg PO TID 10/12/22 [History] Cholecalciferol [Vitamin D3 (25 Mcg = 1000 Iu)] 25 mcg PO DAILY 11/01/22 [History] lisinopriL [Prinivil] 20 mg PO QAM 11/01/22 [History] Apixaban [Eliquis] 5 mg PO BID 01/26/23 [History] Enoxaparin [Lovenox] 100 mg SQ HS 01/26/23 [History] HYDROcodone/APAP 5-325MG [[place] 5] 1 - 2 each PO Q6HR PRN #20 tab 01/30/23 [Rx] Follow up Appointment(s)/Referral(s): Mayelin Green MD [STAFF PHYSICIAN] - 02/09/23 8:00 am Activity/Diet/Wound Care/Special Instructions: Wear bra at all times Do not drive for 24 hours from discharge if taking narcotic pain medicine May shower after 48 hours Lovenox as per Dr. Sevilla and than to change to eliquis Discharge Disposition: HOME SELF-CARE
[2023-01-30 18:21] VITALS: TEMP 96.9
[2023-01-30] MEDS ORDERED: HYDROcodone/APAP 5-325MG 1 EACH TAB PO ONE (19:00)
[2023-01-30] MEDS ORDERED: HYDROcodone/APAP 5-325MG 1 EACH TAB ONE (19:00)
[2023-01-30 19:05] VITALS: RESP 18
[2023-01-30 19:19] VITALS: BP 120/69; PULSE 64
== END 2023-01-30 19:44 | disposition home or self-care (01) ==
LOC: OR 12:48
PROVIDERS: ATTEND Surgery
DX: C50.312 Malignant neoplasm of lower-inner quadrant of left female breast (principal)
CPT/HCPCS: 19301; 38525; 38900; 88342; 88307; 88341; 76098; 19281; 19285; 38792; C1819; A9520; J2250; J1100; J2405; J0690; J2001 ×2; J3010; J1885; J2704; J1644; J2371

== ENCOUNTER → 2023-02-09 | Outpatient (CLI) | payer MEDICARE ==
--- NOTE | 2023-02-09 08:23 | P.PN ---
Progress Note - Text Progress Note Date: 02/09/23 Martha is a 62 year old white female status post left breast lumpectomy and axillary node resection on 01-30-23. The resection in the breast revealed invasive lobular carcinoma all margins negative, the lymph nodes revealed 5 nodes positive for macrometastatic disease. She has been seen by Dr. Jones and scheduled for metastatic workup and chemotherapy. In addition she underwent an MRI biopsy of the right breast which did reveal invasive ductal carcinoma. The consensus was that the patient should be able metastatic workup followed by chemotherapy prior to any intervention surgically on the right breast. The patient tolerated the procedure without difficulty. She did have some bleeding from the lateral aspect of the incision following a shower but this is stopped. Physical exam: Lungs: Clear Heart: Regular rate and rhythm Incisions: Clean and dry at the lateral aspect of the breast incision there is some mild erythema impression: Patient doing well status post left breast lumpectomy and axillary node resection Plan: Metastatic workup Adjuvant chemotherapy Follow-up for surgical intervention right breast after the above is done CC: Dr. Sevilla
== END ==
LOC: WWCWWP 08:05
PROVIDERS: ATTEND Surgery
DX: D05.11 Intraductal carcinoma in situ of right breast (principal); Z90.12 Acquired absence of left breast and nipple; Z87.891 Personal history of nicotine dependence

== ENCOUNTER → 2023-02-10 | Outpatient (CLI) | payer MEDICARE, OTHER ==
--- NOTE | 2023-02-10 16:01 | PE ---
EXAMINATION TYPE: PET CT fusion skull to thigh DATE OF EXAM: 02/10/2023 CLINICAL INDICATION:Female, 62 years old with history of C50.612 breast ca; TECHNIQUE: Following the intravenous administration of 9.01 mCi of F-18 FDG, whole body images are performed from the skull base to the midthigh. Images are reviewed on the computer in the coronal, a xial, and sagittal planes. Reconstructed rotating images are created on independent workstation and reviewed on the computer. A non-contrast CT is performed in conjunction with the PET scan. Glucose level 135 mg/dL COMPARISON: CT 07/03/2018, PET/CT None, FINDINGS: Mediastinal SUV mean is 1.9. Hepatic parenchyma SUV mean is 2.7. SKULL BASE AND NECK: No suspicious radiotracer activity. CHEST, MEDIASTINUM, AND HILAR REGION: Left breast fluid collections, the first measuring at least 6.7 x 5.3 cm without abnormal increased F DG activity. More inferiorly there is another fluid collection measuring at least 6.4 x 4.1 cm withou t increased radiotracer activity.. There is skin thickening within the left breast with increased FDG activity. Max SUV in the inferior lateral aspect 3.3. Additional linear suspected scarring more medially near the nipple max SUV 3.2. ABDOMEN AND PELVIS: No suspicious radiotracer activity. MUSCULOSKELETAL STRUCTURES: No suspicious radiotracer activity. Radiotracer activity within the spine the level of L4-L5 max SUV 4.5. Laminectomy changes at this level. OTHER CT: Atherosclerosis of the arterial vasculature is minimal. Hepatic Tambocor hernia. Estimated resting left buttock with leads terminating in the posterior thecal sac. The heart is mildly enlarged for size. IMPRESSION: Postsurgical changes of the left breast with mild skin thickening with increased FDG activity. There is at least 2 likely seromas present. No focal FDG activity within the left breast to suggest persist ent mass. There are postsurgical changes with linear FDG activity. No abnormal lymphadenopathy with i ncreased radiotracer activity. No evidence for metastatic disease.
== END | disposition home or self-care (01) ==
LOC: RADXRMAIN 13:27
PROVIDERS: ATTEND Surgery
DX: C50.612 Malignant neoplasm of axillary tail of left female breast (principal); R23.4 Changes in skin texture
CPT/HCPCS: 78815; A9552

== ENCOUNTER → 2023-02-13 | Outpatient (CLI) | payer MEDICARE, OTHER ==
--- NOTE | 2023-02-13 08:35 | P.PN ---
Progress Note - Text Progress Note Date: 02/13/23 Martha was seen today with a complaint of some bruising at the lateral aspect of the lumpectomy incision. Very weak and a PET/CT was performed which did not show any evidence of metastatic disease. This was reviewed with Dr. Davis. Examination: The lateral aspect of the incision is a nubbin of tissue which is protruding. After informed consent was recommended that this area be debrided. The area of concern was prepped using Betadine. 1% lidocaine was used to anesthetize the area of concern. Using a #10 blade this area was excised. The skin was then closed using a 4-0 nylon suture. The patient tolerated the procedure in stable condition. The patient has some mild erythema at the area of the incision Plan: Keflex 500 mg 1 by mouth 4 times a day The patient will follow-up in 3 days
[2023-02-13 11:51] VITALS: BP 132/91; PULSE 86; RESP 18
== END ==
LOC: WWCWWP 08:11
PROVIDERS: ATTEND Surgery
DX: Z04.89 Encounter for examination and observation for other specified reasons (principal); L53.9 Erythematous condition, unspecified; Z87.891 Personal history of nicotine dependence

== ENCOUNTER → 2023-02-14 | Outpatient (CLI) | payer MEDICARE, OTHER ==
--- NOTE | 2023-02-14 12:51 | CA ---
Transthoracic Echo Report Name: Martha Junior Age: 62 Gender: F : 1960 Exam Date: 02/14/2023 11:07 Exam Location: [facility] Ht (in): 64 Wt (lb): 230 Ordering Physician: Michele Jones MD Attending/Referring Phys: [employer] Supervisor Vernell Pitt [facility] Procedure CPT: Indications: Z01.818 ENCOUNTER FOR OTHER PREPROCEDURAL EXAMINAT Cardiac Hx: Technical Quality: Fair Contrast 1: Total Dose (mL): Contrast 2: Total Dose (mL): MEASUREMENTS (Male / Female) Normal Values 2D ECHO LV Diastolic Diameter PLAX 4.1 cm 4.2 - 5.9 / 3.9 - 5.3 cm LV Systolic Diameter PLAX 2.8 cm IVS Diastolic Thickness 1.0 cm 0.6 - 1.0 / 0.6 - 0.9 cm LVPW Diastolic Thickness 1.0 cm 0.6 - 1.0 / 0.6 - 0.9 cm LV Relative Wall Thickness 0.5 LVOT Diameter 2.0 cm Ascending Aorta Diameter 3.8 cm M-MODE Aortic Root Diameter MM 2.4 cm LA Systolic Diameter MM 3.0 cm LA Ao Ratio MM 1.2 AV Cusp Separation MM 2.0 cm DOPPLER AV Peak Velocity 165.9 cm/s AV Peak Gradient 11.0 mmHg AV Mean Velocity 103.1 cm/s AV Mean Gradient 5.1 mmHg AV Velocity Time Integral 31.4 cm AI Peak Velocity 308.3 cm/s AI Peak Gradient 38.0 mmHg AI Pressure Half Time 1018.2 ms LVOT Peak Velocity 130.0 cm/s LVOT Peak Gradient 6.8 mmHg LVOT Velocity Time Integral 27.8 cm LVOT Stroke Volume 86.9 cm??? LVOT Stroke Volume Index 41.9 ml/m??? LVOT Cardiac Index 2464.0 cm???/min???m??? AV Area Cont Eq vti 2.8 cm??? AV Area Cont Eq pk 2.5 cm??? Mitral E Point Velocity 64.4 cm/s Mitral A Point Velocity 78.9 cm/s Mitral E to A Ratio 0.8 MV Deceleration Time 251.4 ms LV E' Lateral Velocity 10.0 cm/s Mitral E to LV E' Lateral Ratio 6.4 LV E' Septal Velocity 7.5 cm/s Mitral E to LV E' Septal Ratio 8.6 Right Atrial Pressure 3.0 mmHg FINDINGS Left Ventricle Normal Left ventricular size, wall thickness, systolic function with no obvious regional wall motion abnormalities. Left ventricular ejection fraction is estimated at 55-60%. Right Ventricle Mild right ventricular dilatation. Right Atrium Normal right atrial size. Left Atrium Normal left atrial size. Mitral Valve Structurally normal mitral valve. Mild mitral regurgitation. Aortic Valve Trileaflet aortic valve. Mild aortic regurgitation. Tricuspid Valve Structurally normal tricuspid valve. No tricuspid regurgitation. Pulmonic Valve Structurally normal pulmonic valve. Trace pulmonic regurgitation. Pericardium No pericardial effusion. Aorta Normal size aortic root. Ascending aorta at upper limits of normal. CONCLUSIONS 1. Normal left ventricle size and systolic function 2. Mild mitral and aortic regurgitation Previewed by: Dr. Christine Manriquez MD (Electronically Signed) Final Date: 14 February 2023 12:50
== END | disposition home or self-care (01) ==
LOC: RADECHMAIN 10:55
PROVIDERS: ATTEND Internal Medicine Hematology & Oncology
DX: Z01.818 Encounter for other preprocedural examination (principal); I08.0 Rheumatic disorders of both mitral and aortic valves
CPT/HCPCS: 93306

== ENCOUNTER → 2023-02-16 | Outpatient (CLI) | payer MEDICARE, OTHER ==
[2023-02-16 10:34] VITALS: BP 139/80; PULSE 61; RESP 17; TEMP 98.3
--- NOTE | 2023-02-16 10:49 | P.PN ---
Progress Note - Text Progress Note Date: 02/16/23 Martha is status post left breast lumpectomy and removal of 5 axillary nodes (+) macromets on 01-30-23. She had an MRI done and a lesion in the right breast was biopsied (+) IDC. She did not yet have surgery for the right breast cancer. Metastatic work-up (-). She is followed by Dr. Jones. Post surgery she was seen last week with a complaint of a nubbin of tissue in the lateral aspect of the lumpectomy incision. This redundant tissue was excised. Mild erythema was also noted in the incision and the patient was started on Keflex. Dr. Jones from [id number] Jones last week and she is going to have a port placed next week to start chemotherapy. The concern is greater for systemic disease done in a local disease at this time. Examination: Incision clean and dry Decreased erythema Lungs: Clear Heart: Regular rate and rhythm Impression: Patient doing well postoperatively at this time there are sutures in the lateral aspect of the breast incision which will be removed next week The patient is going to have a Port-A-Cath placed next week Chemotherapy This will be followed by resection of the tumor in the right breast after the neoadjuvant chemotherapy CC: Dr. Sevilla, Dr. Jones
== END ==
LOC: WWCWWP 10:22
PROVIDERS: ATTEND Surgery
DX: Z45.2 Encounter for adjustment and management of vascular access device (principal); Z87.891 Personal history of nicotine dependence

== ENCOUNTER → 2023-02-22 | Outpatient (CLI) | payer MEDICARE, OTHER ==
--- NOTE | 2023-02-22 11:09 | P.PN ---
Progress Note - Text Progress Note Date: 02/22/23 Martha is status post left breast lumpectomy and removal of 5 axillary nodes (+) macromets on 01-30-23. She had an MRI done and a lesion in the right breast was biopsied (+) IDC. She did not yet have surgery for the right breast cancer. Metastatic work-up (-). She is followed by Dr. Jones. Post surgery she was seen with a complaint of a nubbin of tissue in the lateral aspect of the lumpectomy incision. This redundant tissue was excised. Mild erythema was also noted in the incision and the patient was started on Keflex. Note Dr. Jones from [id number] Jones last week and she had a port placed last week to start chemotherapy. The concern is greater for systemic disease done in a local disease at this time. First chemotherapy next week. Examination: Incision clean and dry Decreased erythema Lungs: Clear Heart: Regular rate and rhythm Impression: Patient doing well postoperatively at this time there are sutures in the lateral aspect of the left breast incision which will be removed The patient has a port in place left chest wall Chemotherapy This will be followed by resection of the tumor in the right breast after the neoadjuvant chemotherapy follow up in 4 months radiation therapy after chemotherapy; appointment at this time CC: Dr. Sevilla, Dr. Jones
[2023-02-22 11:16] VITALS: BP 141/88; PULSE 60; RESP 18; TEMP 97.8
== END ==
LOC: WWCWWP 10:47
PROVIDERS: ATTEND Surgery
DX: Z04.89 Encounter for examination and observation for other specified reasons (principal); Z90.12 Acquired absence of left breast and nipple; Z87.891 Personal history of nicotine dependence

== ENCOUNTER 2023-08-04 21:30 | Observation (INO) | payer MEDICARE ==
--- NOTE | 2023-08-04 21:43 | ED ---
General Adult HPI - General Chief complaint: Fall Stated complaint: Fall, Head Injury Time Seen by Provider: 08/04/23 21:36 Source: patient, EMS Mode of arrival: EMS - History of Present Illness Initial comments: Dictation was produced using [employer] dictation software. please excuse any grammatical, word or spelling errors. Chief Complaint: 63-year-old female taking L quest for lower extremities as to the emergency department after fall head injury History of Present Illness: Patient 63-year-old female she has past medical history of cancer. She is walking the steps when she lost her balance causing her to fall back. She states she fell down 2 or 3 steps hit the back of her head. Denies any loss of consciousness. Patient takes a look was for treatment of bilateral lower extremity PEs. Patient has no other complaints. The ROS documented in this emergency department record has been reviewed and confirmed by me. Those systems with pertinent positive or negative responses have been documented in the HPI. All other systems are other negative and/or noncontributory. - Related Data Home Medications Medication Instructions Recorded Confirmed DULoxetine HCL [Cymbalta] 30 mg PO QAM 12/31/18 02/22/23 DULoxetine HCL [Cymbalta] 60 mg PO HS 12/31/18 02/22/23 Gabapentin [Neurontin] 700 mg PO TID 12/31/18 02/22/23 Levothyroxine Sodium [Synthroid] 100 mcg PO QAM 12/31/18 02/22/23 Loratadine [Claritin] 10 mg PO DAILY 12/31/18 02/22/23 Phentermine HCl [Adipex-P] 37.5 mg PO DAILY 12/31/18 02/22/23 Spironolactone [Aldactone] 25 mg PO DAILY 12/31/18 02/22/23 carvediloL [Coreg] 25 mg PO BID 12/31/18 02/22/23 Docusate Sodium 250 mg PO DAILY 10/12/22 02/22/23 methocarbamoL [Methocarbamol] 500 mg PO TID 10/12/22 02/22/23 Cholecalciferol [Vitamin D3 (25 25 mcg PO DAILY 11/01/22 02/22/23 Mcg = 1000 Iu)] lisinopriL [Prinivil] 20 mg PO QAM 11/01/22 02/22/23 Apixaban [Eliquis] 5 mg PO BID 01/26/23 02/22/23 Enoxaparin [Lovenox] 100 mg SQ HS 01/26/23 02/22/23 Previous Rx's Medication Instructions Recorded HYDROcodone/APAP 5-325MG [[place] 5] 1 - 2 each PO Q6HR PRN #20 tab 01/30/23 Cephalexin [Keflex] 500 mg PO Q6HR 1 Days #20 cap 02/13/23 Allergies Allergy/AdvReac Type Severity Reaction Status Date / Time No Known Allergies Allergy Verified 08/04/23 21:42 Review of Systems ROS Statement: Those systems with pertinent positive or pertinent negative responses have been documented in the HPI. ROS Other: All systems not noted in ROS Statement are negative. Past Medical History Past Medical History: Cancer, Deep Vein Thrombosis (DVT), Hyperlipidemia, Hypertension, Sleep Apnea/CPAP/BIPAP, Thyroid Disorder Additional Past Medical History / Comment(s): Current left breast cancer. Current "small DVT behind left knee and DVT from groin to ankle in right leg". Leg cramps. Back pain. Hx migraines. Supposed to use CPAP, "haven't used it in years". History of Any Multi-Drug Resistant Organisms: None Reported Past Surgical History: Back Surgery, Tonsillectomy Additional Past Surgical History / Comment(s): Spinal cord stimulator, multiple back surgeries, colonoscopy. Past Anesthesia/Blood Transfusion Reactions: No Reported Reaction, Motion Sickness Additional Past Anesthesia/Blood Transfusion Reaction / Comment(s): Extremely difficult IV start, states had to to have central line for one of her back surgeries, has have Midline IV access as well. Past Psychological History: No Psychological Hx Reported Smoking Status: Former smoker Past Alcohol Use History: Rare Past Drug Use History: None Reported - Past Family History Father Family Medical History: Cancer, Deep Vein Thrombosis (DVT), Pulmonary Embolus Additional Family Medical History / Comment(s): Lung cancer. Sister(s) Family Medical History: Cancer General Exam - General Exam Comments Initial Comments: PHYSICAL EXAM: General Impression: Alert and oriented x3, not in acute distress HEENT: 2 x 2 cm hematoma over the occiput, extra-ocular movements intact, pupils equal and reactive to light bilaterally, mucous membranes moist. Cardiovascular: Heart regular rate and rhythm Chest: Able to complete full sentences, no retractions, no tachypnea Abdomen: abdomen soft, non-tender, non-distended, no organomegaly Musculoskeletal: Pulses present and equal in all extremities, no peripheral edema Motor: no focal deficits noted Neurological: CN II-XII grossly intact, no focal motor or sensory deficits noted Skin: Intact with no visualized rashes Psych: Normal affect and mood Course Vital Signs 08/04/23 08/04/23 08/04/23 21:32 21:45 22:00 Temperature 96.9 F L 98.0 F 98.0 F Pulse Rate 66 80 61 Respiratory 18 18 17 Rate Blood Pressure 146/86 116/70 139/84 O2 Sat by Pulse 98 99 99 Oximetry 08/04/23 08/04/23 08/04/23 22:15 22:30 22:45 Temperature 98.0 F 98.0 F 98.0 F Pulse Rate 61 61 64 Respiratory 17 17 18 Rate Blood Pressure 140/82 137/87 136/82 O2 Sat by Pulse 99 99 100 Oximetry 08/04/23 08/04/23 08/04/23 23:00 23:15 23:24 Temperature 98.2 F 98.2 F Pulse Rate 63 64 63 Respiratory 19 18 19 Rate Blood Pressure 152/88 147/86 147/86 O2 Sat by Pulse 98 100 99 Oximetry 08/04/23 08/04/23 08/04/23 23:30 23:41 23:50 Temperature 98.2 F Pulse Rate 64 70 65 Respiratory 18 15 17 Rate Blood Pressure 154/79 154/79 147/83 O2 Sat by Pulse 98 99 98 Oximetry 08/05/23 08/05/23 08/05/23 00:00 00:30 00:50 Temperature 98.0 F Pulse Rate 68 64 65 Respiratory 19 16 13 Rate Blood Pressure 148/83 131/70 129/64 O2 Sat by Pulse 98 99 98 Oximetry 08/05/23 08/05/23 08/05/23 01:00 01:10 01:20 Temperature Pulse Rate 75 71 79 Respiratory 14 8 L 17 Rate Blood Pressure 129/64 147/72 146/78 O2 Sat by Pulse 97 99 97 Oximetry 08/05/23 08/05/23 01:40 01:50 Temperature 97.5 F L 97.5 F L Pulse Rate 74 71 Respiratory 17 19 Rate Blood Pressure 141/88 143/84 O2 Sat by Pulse Oximetry EKG Findings - EKG Comments: EKG Findings:: My EKG interpretation: Ventricular rate 59, sinus bradycardia,. 184, QRS 93, QTc 434. No OK prolongation, no QTC prolongation, no ST or T-wave changes noted. Overall, this EKG is unremarkable Medical Decision Making - Medical Decision Making Was pt. sent in by a medical professional or institution (, RAYMOND, SPEECH THERAPY DIRECTOR, urgent care, hospital, or half-way...) When possible be specific @ -No Did you speak to anyone other than the patient for history (EMS, parent, family, police, friend...)? What history was obtained from this source @ -No Did you review nursing and triage notes (agree or disagree)? Why? @ -I reviewed and agree with nursing and triage notes Were old charts reviewed (outside hosp., previous admission, EMS record, old EKG, old radiological studies, urgent care reports/EKG's, half-way records)? Report findings @ -No old charts were reviewed Differential Diagnosis (chest pain, altered mental status, abdominal pain women, abdominal pain men, vaginal bleeding, musculoskeletal, weakness, fever, dyspnea, syncope, headache, dizziness, GI bleed, back pain, seizure, CVA, palpatations, mental health)? @ -Differential Dizziness: Benign paroxysmal positional Vertigo, Menieres disease, otitis media, acoustic neuroma, vertebrobasilar insufficiency, cerebellar stroke, encephalitis, hypovolemic, arrhythmia, coronary artery syndrome, anemia, this is not meant to be an all-inclusive list EKG interpreted by me (3pts min.). @ -See above X-rays interpreted by me (1pt min.). @ -Chest x-ray and pelvis x-ray shows no acute processes CT interpreted by me (1pt min.). @ -CT brain and C-spine shows no acute processes. U/S interpreted by me (1pt. min.). @ -None done What testing was considered but not performed or refused? (CT, X-rays, U/S, labs)? Why? @ -None What meds were considered but not given or refused? Why? @ -None Did you discuss the management of the patient with other professionals (professionals i.e. RAYMOND Miranda, SPEECH THERAPY DIRECTOR, lab, RT, psych nurse, social work coordinator, building inspection engineer, teacher, aeronautical engineering officer, vocational case manager)? Give summary @ -No Was smoking cessation discussed for >3mins.? @ -No Was critical care preformed (if so, how long)? @ -No Were there social determinants of health that impacted care today? How? (Homelessness, low income, unemployed, alcoholism, drug addiction, transportation, low edu. Level, literacy, decrease access to med. care, senior living, rehab)? @ -No Was there de-escalation of care discussed even if they declined (Discuss DNR or withdrawal of care, Hospice)? DNR status @ -No What co-morbidities impacted this encounter? (DM, HTN, Smoking, COPD, CAD, Cancer, CVA, ARF, Chemo, Hep., AIDS, mental health diagnosis, sleep apnea, morbid obesity)? @ -None Was patient admitted / discharged? Hospital course, mention meds given and route, prescriptions, significant lab abnormalities, going to OR and other pertinent info. @ -63 Year-old female presents emergency department for fall. She does take anticoagulation medication states that she felt dizzy after the fall. Imaging studies are negative. Vital signs stable. Patient is given treatment for symptom control however she still states that she is significantly dizzy. She lives at home by herself does not feel safe. Patient's agreeable for observation admission for further symptom control. Orthostatic blood pressures are normal. Patient's symptoms to be worse when her stresses and. States that her symptoms do seem a little exacerbated when she turns her head. Undiagnosed new problem with uncertain prognosis? @ -No Drug Therapy requiring intensive monitoring for toxicity (Heparin, Nitro, Insulin, Cardizem)? @ -No Were any procedures done? @ -No Diagnosis/symptom? Acute, or Chronic, or Acute on Chronic? Uncomplicated (without systemic symptoms) or Complicated (systemic symptoms)? @ -Dizziness Side effects of treatment? @ -No Exacerbation, Progression, or Severe Exacerbation? @ -No Poses a threat to life or bodily function? How? (Chest pain, USA, VT, pneumonia, PE, COPD, DKA, ARF, appy, cholecystitis, CVA, Diverticulitis, Homicidal, Suicidal, threat to staff... and all critical care pts) @ -yes - Lab Data Result diagrams: 08/04/23 22:00 08/04/23 22:00 Lab Results 08/04/23 08/04/23 08/04/23 Range/Units 22:00 22:00 22:00 WBC 6.1 (3.8-10.6) k/uL RBC 4.04 (3.80-5.40) m/uL Hgb 13.4 (11.4-16.0) gm/dL Hct 39.1 (34.0-46.0) % MCV 96.7 (80.0-100.0) fL MCH 33.2 (25.0-35.0) pg MCHC 34.3 (31.0-37.0) g/dL RDW 13.8 (11.5-15.5) % Plt Count 170 (150-450) k/uL MPV 7.2 Neutrophils % 75 % Lymphocytes % 14 % Monocytes % 5 % Eosinophils % 3 % Basophils % 1 % Neutrophils # 4.6 (1.3-7.7) k/uL Lymphocytes # 0.9 L (1.0-4.8) k/uL Monocytes # 0.3 (0-1.0) k/uL Eosinophils # 0.2 (0-0.7) k/uL Basophils # 0.0 (0-0.2) k/uL Poikilocytosis Slight PT 11.6 (10.0-12.5) sec INR 1.1 (<1.2) APTT 25.5 (22.0-30.0) sec Sodium 137 (137-145) mmol/L Potassium 3.9 (3.5-5.1) mmol/L Chloride 108 H (98-107) mmol/L Carbon Dioxide 20 L (22-30) mmol/L Anion Gap 9 mmol/L BUN 21 H (7-17) mg/dL Creatinine 0.71 (0.52-1.04) mg/dL Est GFR (CKD-EPI)AfAm >90 (>60 ml/min/1.73 sqM) Est GFR (CKD-EPI)NonAf >90 (>60 ml/min/1.73 sqM) Glucose 106 H (74-99) mg/dL Calcium 9.7 (8.4-10.2) mg/dL Total Bilirubin 0.7 (0.2-1.3) mg/dL AST 26 (14-36) U/L ALT 20 (4-34) U/L Alkaline Phosphatase 68 (38-126) U/L Troponin I (0.000-0.034) ng/mL Total Protein 6.6 (6.3-8.2) g/dL Albumin 4.2 (3.5-5.0) g/dL Serum Alcohol <10 mg/dL 08/04/23 Range/Units 22:00 WBC (3.8-10.6) k/uL RBC (3.80-5.40) m/uL Hgb (11.4-16.0) gm/dL Hct (34.0-46.0) % MCV (80.0-100.0) fL MCH (25.0-35.0) pg MCHC (31.0-37.0) g/dL RDW (11.5-15.5) % Plt Count (150-450) k/uL MPV Neutrophils % % Lymphocytes % % Monocytes % % Eosinophils % % Basophils % % Neutrophils # (1.3-7.7) k/uL Lymphocytes # (1.0-4.8) k/uL Monocytes # (0-1.0) k/uL Eosinophils # (0-0.7) k/uL Basophils # (0-0.2) k/uL Poikilocytosis PT (10.0-12.5) sec INR (<1.2) APTT (22.0-30.0) sec Sodium (137-145) mmol/L Potassium (3.5-5.1) mmol/L Chloride (98-107) mmol/L Carbon Dioxide (22-30) mmol/L Anion Gap mmol/L BUN (7-17) mg/dL Creatinine (0.52-1.04) mg/dL Est GFR (CKD-EPI)AfAm (>60 ml/min/1.73 sqM) Est GFR (CKD-EPI)NonAf (>60 ml/min/1.73 sqM) Glucose (74-99) mg/dL Calcium (8.4-10.2) mg/dL Total Bilirubin (0.2-1.3) mg/dL AST (14-36) U/L ALT (4-34) U/L Alkaline Phosphatase (38-126) U/L Troponin I <0.012 (0.000-0.034) ng/mL Total Protein (6.3-8.2) g/dL Albumin (3.5-5.0) g/dL Serum Alcohol mg/dL Disposition Clinical Impression: Fall Disposition: ADMITTED IP TO THIS HOSP Condition: Fair Referrals: Arlette Sevilla MD [Primary Care Provider] - 1-2 days Decision Time: 02:36
--- NOTE | 2023-08-04 21:56 | XR ---
EXAMINATION TYPE: XR pelvis AP view DATE OF EXAM: 08/04/2023 CLINICAL HISTORY: pain TECHNIQUE: Single view the pelvis is submitted. FINDINGS: No evidence for fracture, dislocation or bony lesion. Joint spaces are well-preserved. S I joints appear symmetric. IMPRESSION: 1. No acute fracture or dislocation seen. ICD 10 NO FRACTURE, INITIAL EVALUATION
--- NOTE | 2023-08-04 21:57 | XR ---
EXAMINATION TYPE: XR chest 1V portable DATE OF EXAM: 08/04/2023 HISTORY: Shortness of breath. COMPARISON: 11/28/22 TECHNIQUE: Single view of the chest is submitted. FINDINGS: Demonstrated are scattered senescent parenchymal change. There is no evidence for focal infiltrate. The heart is stable. Hilar and mediastinal structures are within normal limits. Degenerative changes are seen of the dorsal spine. IMPRESSION: 1. Chronic changes without evidence for acute pulmonary disease.
[2023-08-04 22:15] LABS: Basophils % (A) 1 %; Eosinophils # (A) 0.2 k/uL (0-0.7); Eosinophils % (A) 3 %; HCT 39.1 % (34.0-46.0); HGB 13.4 gm/dL (11.4-16.0); Lymphocytes # (A) 0.9 k/uL (1.0-4.8); Lymphocytes % (A) 14 %; MCH 33.2 pg (25.0-35.0); MCHC 34.3 g/dL (31.0-37.0); MCV 96.7 fL (80.0-100.0); Mean Platelet Volume 7.2; Monocytes # (A) 0.3 k/uL (0-1.0); Monocytes % (A) 5 %; Neutrophils # (A) 4.6 k/uL (1.3-7.7); Neutrophils % (A) 75 %; Platelet Count 170 k/uL (150-450); Poikilocytosis Slight; RBC 4.04 m/uL (3.80-5.40); RDW 13.8 % (11.5-15.5); WBC 6.1 k/uL (3.8-10.6)
[2023-08-04 22:20] LABS: INR 1.1 (<1.2); Partial Thromboplastin Time 25.5 sec (22.0-30.0); Prothrombin Time 11.6 sec (10.0-12.5)
[2023-08-04 22:23] LABS: ALT 20 U/L (4-34); AST 26 U/L (14-36); African American GFR (CKD) >90 (>60 ml/min/1.73 sqM); Albumin 4.2 g/dL (3.5-5.0); Alcohol <10 mg/dL; Alkaline Phosphatase 68 U/L (38-126); Anion Gap 9 mmol/L; Blood Urea Nitrogen 21 mg/dL (7-17); Calcium 9.7 mg/dL (8.4-10.2); Carbon Dioxide 20 mmol/L (22-30); Chloride 108 mmol/L (98-107); Glucose 106 mg/dL (74-99); Non-African American GFR(CKD) >90 (>60 ml/min/1.73 sqM); Potassium 3.9 mmol/L (3.5-5.1); Sodium 137 mmol/L (137-145); Total Bilirubin 0.7 mg/dL (0.2-1.3); Total Protein 6.6 g/dL (6.3-8.2)
--- NOTE | 2023-08-04 22:59 | CT ---
EXAM: CT Head Without Intravenous Contrast CLINICAL HISTORY: ITS.REASON CT Reason: trauma TECHNIQUE: Axial computed tomography images of the head/brain without intravenous contrast. CTDI is 45.285 mGy and DLP is 1058.5 mGy-cm. This CT exam was performed using one or more of the following dose reduction techniques: automated exposure control, adjustment of the mA and/or kV according to patient size, and/or use of iterative reconstruction technique. COMPARISON: No relevant prior studies available. FINDINGS: Brain: Minimal white matter disease, likely related to microangiopathy. No hemorrhage. Ventricles: Unremarkable. No ventriculomegaly. Bones/joints: Unremarkable. No acute fracture. Soft tissues: Unremarkable. Sinuses: Mild mucosal thickening of bilateral maxillary sinuses. Mastoid air cells: Unremarkable as visualized. No mastoid effusion. IMPRESSION: No acute findings in the head/brain. EXAM: CT Cervical Spine Without Intravenous Contrast CLINICAL HISTORY: ITS.REASON CT Reason: trauma TECHNIQUE: Axial computed tomography images of the cervical spine without intravenous contrast. CTDI is 17.385 mGy and DLP is 444.6 mGy-cm. This CT exam was performed using one or more of the following dose reduction techniques: automated exposure control, adjustment of the mA and/or kV according to patient size, and/or use of iterative reconstruction technique. COMPARISON: No relevant prior studies available. FINDINGS: Vertebrae: Reversal of normal lordosis with mild kyphosis of the cervical spine. Otherwise, alignment is maintained with preservation of vertebral body heights. No acute fracture. Discs/spinal canal/neural foramina: Mild degenerative disc disease in the lower cervical spine without significant bony spinal canal stenosis at any cervical level. Soft tissues: Unremarkable. IMPRESSION: No acute findings in the cervical spine.
[2023-08-05] MEDS ORDERED: SODIUM CHLORIDE 0.9% 1,000 ML IV STA (00:30)
[2023-08-05] MEDS ORDERED: ONDANSETRON 4 MG/2 ML VIAL IVP STA (00:30)
[2023-08-05] MEDS ORDERED: METOCLOPRAMIDE 5 MG/ML 2 ML VIAL IVP STA (02:30)
[2023-08-05] MEDS ORDERED: MECLIZINE 12.5 MG TAB PO STA (02:30)
[2023-08-05] MEDS ORDERED: NALOXONE 0.4 MG/ML 1 ML VIAL IV PRN (02:33)
[2023-08-05] MEDS ORDERED: MECLIZINE 25 MG TAB PO PRN (09:24)
--- NOTE | 2023-08-05 12:55 | P.HPIM ---
History of Present Illness H&P Date: 08/05/23 History of present illness; patient is 63-year-old lady with past medical histor y significant for hypothyroidism, breast cancer who presented to the ER after a fall. Patient stated that she was walking the stairs, when she lost her balance and fell down couple of steps. Patient stated that she was feeling dizzy at that time. There was no complain of loss of consciousness. There was no complain of any jerking movement of any extremity. No complaint of weakness of any extremity. There was no complain of fever or chills. Because of the fall, patient brought to the ER Initial lab work done in the ER showed WBC 6.1, hemoglobin 13.4, platelet count 170, sodium 137, potassium 3.9, BUN 21, creatinine 0.71, troponin 0.012 EKG done in the ER showed heart rate of 59, no ST segment elevation or depression seen, no T-wave inversions seen. Pelvic x-ray, no fracture seen Chest x-ray done in the ER showed chronic changes without evidence for acute pulmonary disease CT head done showed no acute intracranial process CT cervical spine showed no acute fractures Patient admitted to internal medicine service REVIEW OF SYSTEMS: CONSTITUTIONAL: No fever, no malaise, no fatigue. HEENT: No recent visual problems or hearing problems. Denied any sore throat. CARDIOVASCULAR: No chest pain, orthopnea, PND, no palpitations, no syncope. PULMONARY: No shortness of breath, no cough, no hemoptysis. GASTROINTESTINAL: No diarrhea, no nausea, no vomiting, no abdominal pain. NEUROLOGICAL: No headaches, no weakness, no numbness. HEMATOLOGICAL: Denies any bleeding or petechiae. GENITOURINARY: Denies any burning micturition, frequency, or urgency. MUSCULOSKELETAL/RHEUMATOLOGICAL: Denies any joint pain, swelling, or any muscle pain. ENDOCRINE: Denies any polyuria or polydipsia. The rest of the 14-point review of systems is negative. PHYSICAL EXAMINATION: GENERAL: The patient is alert and oriented x3, not in any acute distress. Well developed, well nourished. HEENT: Pupils are round and equally reacting to light. EOMI. No scleral icterus. No conjunctival pallor. Normocephalic, atraumatic. No pharyngeal erythema. No thyromegaly. CARDIOVASCULAR: S1 and S2 present. No murmurs, rubs, or gallops. PULMONARY: Chest is clear to auscultation, no wheezing or crackles. ABDOMEN: Soft, nontender, nondistended, normoactive bowel sounds. No palpable organomegaly. MUSCULOSKELETAL: No joint swelling or deformity. EXTREMITIES: No cyanosis, clubbing, or pedal edema. NEUROLOGICAL: Gross neurological examination did not reveal any focal deficits. SKIN: No rashes. Assessment and plan Fall Presyncope Dizziness Hypothyroidism History of breast cancer History of PE Monitor vital signs Monitor CBC Monitor CMP Continue telemetry monitoring Check orthostatics Continue Antivert Hold blood pressure medications for now. Resume home meds Consult neurology Labs and medication were reviewed.. Continue same treatment. Continue with symptomatic treatment. Resume home medication. Monitor labs and vitals. DVT and GI prophylaxis. Further recommendations as per clinical course of the patient Dictation was produced using Punch[employer] dictation software. please excuse any grammatical, word or spelling errors. Past Medical History Past Medical History: Cancer, Deep Vein Thrombosis (DVT), Hyperlipidemia, Hypertension, Sleep Apnea/CPAP/BIPAP, Thyroid Disorder Additional Past Medical History / Comment(s): Current left breast cancer. Current "small DVT behind left knee and DVT from groin to ankle in right leg". Leg cramps. Back pain. Hx migraines. Supposed to use CPAP, "haven't used it in years". History of Any Multi-Drug Resistant Organisms: None Reported Past Surgical History: Back Surgery, Tonsillectomy Additional Past Surgical History / Comment(s): Spinal cord stimulator, multiple back surgeries, colonoscopy. Past Anesthesia/Blood Transfusion Reactions: No Reported Reaction, Motion Sickness Additional Past Anesthesia/Blood Transfusion Reaction / Comment(s): Extremely difficult IV start, states had to to have central line for one of her back surgeries, has have Midline IV access as well. Past Psychological History: No Psychological Hx Reported Smoking Status: Former smoker Past Alcohol Use History: Rare Past Drug Use History: None Reported - Past Family History Father Family Medical History: Cancer, Deep Vein Thrombosis (DVT), Pulmonary Embolus Additional Family Medical History / Comment(s): Lung cancer. Sister(s) Family Medical History: Cancer Medications and Allergies Home Medications Medication Instructions Recorded Confirmed Type DULoxetine HCL [Cymbalta] 30 mg PO QAM 12/31/18 02/22/23 History DULoxetine HCL [Cymbalta] 60 mg PO HS 12/31/18 02/22/23 History Gabapentin [Neurontin] 700 mg PO TID 12/31/18 02/22/23 History Levothyroxine Sodium [Synthroid] 100 mcg PO QAM 12/31/18 02/22/23 History Loratadine [Claritin] 10 mg PO DAILY 12/31/18 02/22/23 History Phentermine HCl [Adipex-P] 37.5 mg PO DAILY 12/31/18 02/22/23 History Spironolactone [Aldactone] 25 mg PO DAILY 12/31/18 02/22/23 History carvediloL [Coreg] 25 mg PO BID 12/31/18 02/22/23 History Docusate Sodium 250 mg PO DAILY 10/12/22 02/22/23 History methocarbamoL [Methocarbamol] 500 mg PO TID 10/12/22 02/22/23 History Cholecalciferol [Vitamin D3 (25 25 mcg PO DAILY 11/01/22 02/22/23 History Mcg = 1000 Iu)] lisinopriL [Prinivil] 20 mg PO QAM 11/01/22 02/22/23 History Apixaban [Eliquis] 5 mg PO BID 01/26/23 02/22/23 History Enoxaparin [Lovenox] 100 mg SQ HS 01/26/23 02/22/23 History HYDROcodone/APAP 5-325MG [Taft 5] 1 - 2 each PO Q6HR PRN #20 tab 01/30/23 02/22/23 Rx Cephalexin [Keflex] 500 mg PO Q6HR 1 Days #20 cap 02/13/23 02/22/23 Rx Allergies Allergy/AdvReac Type Severity Reaction Status Date / Time No Known Allergies Allergy Verified 08/04/23 21:42 Physical Exam Vitals: Vital Signs Temp Pulse Resp BP Pulse Ox 08/05/23 07:27 97.6 F 69 16 94/54 98 08/05/23 06:33 70 19 103/57 99 08/05/23 05:24 68 19 95 08/05/23 04:30 80 18 106/66 94 L 08/05/23 03:30 68 18 130/79 98 08/05/23 03:00 68 19 127/76 96 08/05/23 02:30 71 19 141/87 99 08/05/23 02:10 98.0 F 75 17 141/75 98 08/05/23 02:00 66 16 143/84 08/05/23 01:50 97.5 F L 71 19 143/84 08/05/23 01:40 97.5 F L 74 17 141/88 08/05/23 01:20 79 17 146/78 97 08/05/23 01:10 71 8 L 147/72 99 08/05/23 01:00 75 14 129/64 97 08/05/23 00:50 65 13 129/64 98 08/05/23 00:30 64 16 131/70 99 08/05/23 00:00 98.0 F 68 19 148/83 98 08/04/23 23:50 65 17 147/83 98 08/04/23 23:41 70 15 154/79 99 08/04/23 23:30 98.2 F 64 18 154/79 98 08/04/23 23:24 63 19 147/86 99 08/04/23 23:15 98.2 F 64 18 147/86 100 08/04/23 23:00 98.2 F 63 19 152/88 98 08/04/23 22:45 98.0 F 64 18 136/82 100 08/04/23 22:30 98.0 F 61 17 137/87 99 08/04/23 22:15 98.0 F 61 17 140/82 99 08/04/23 22:00 98.0 F 61 17 139/84 99 08/04/23 21:45 98.0 F 80 18 116/70 99 08/04/23 21:32 96.9 F L 66 18 146/86 98 Intake and Output 08/04/23 08/05/23 08/05/23 22:59 06:59 14:59 Other: Weight 62.596 kg Results CBC & Chem 7: 08/04/23 22:00 08/04/23 22:00 Labs: Abnormal Lab Results - Last 24 Hours (Table) 08/04/23 08/04/23 Range/Units 22:00 22:00 Lymphocytes # 0.9 L (1.0-4.8) k/uL Chloride 108 H (98-107) mmol/L Carbon Dioxide 20 L (22-30) mmol/L BUN 21 H (7-17) mg/dL Glucose 106 H (74-99) mg/dL
[2023-08-05] MEDS: ACETAMINOPHEN TAB 325 MG TAB PO PRN ×2 (14:12→20:17)
[2023-08-05] MEDS: GABAPENTIN 300 MG CAP PO SCH ×2 (15:41→20:12)
[2023-08-05] MEDS: methocarbamoL 500 MG TAB PO SCH ×2 (15:41→20:12)
--- NOTE | 2023-08-05 16:05 | P.CNNES ---
History of Present Illness Consult date: 08/05/23 Reason for Consult: vertigo, dizziness History of Present Illness: The pt is a 63 y/o female who is seen in neurologic consultation on , in collaboration with Gus Rojas, via teleneurology. History is obtained from the pt and review of the chart. The pt reports that her Sx of spinning began after she fell and hit her head. She reports that she was walking up the stairs, when suddenly, her legs "were not there". The pt does report a history of falls, however, not this severe. The pt did reportedly hit her head. There was no loss of consciousness. The pt recalls the events surrounding her fall. She states that the spinning began immediately following the fall. The pt needed help to get up. She was able to crawl, but unable to sit or stand up. She says her Sx are worse when she is sitting or standing. Talisha rodrigues does have spinning with turning of her head. The pt reports a frontal headache. She did have nausea and dry heaves. She denies tinnitus and loss of hearing. CT scan of the brain, performed in the ER, was negative for acute hemorrhage and infarct. Past Medical History Past Medical History: Cancer, Deep Vein Thrombosis (DVT), Hyperlipidemia, Hypertension, Sleep Apnea/CPAP/BIPAP, Thyroid Disorder Additional Past Medical History / Comment(s): Current left breast cancer. Current "small DVT behind left knee and DVT from groin to ankle in right leg". Leg cramps. Back pain. Hx migraines. Supposed to use CPAP, "haven't used it in years". History of Any Multi-Drug Resistant Organisms: None Reported Past Surgical History: Back Surgery, Tonsillectomy Additional Past Surgical History / Comment(s): Spinal cord stimulator, multiple back surgeries, colonoscopy. Past Anesthesia/Blood Transfusion Reactions: No Reported Reaction, Motion Sickness Additional Past Anesthesia/Blood Transfusion Reaction / Comment(s): Extremely difficult IV start, states had to to have central line for one of her back surgeries, has have Midline IV access as well. Past Psychological History: No Psychological Hx Reported Smoking Status: Former smoker Past Alcohol Use History: Rare Past Drug Use History: None Reported - Past Family History Father Family Medical History: Cancer, Deep Vein Thrombosis (DVT), Pulmonary Embolus Additional Family Medical History / Comment(s): Lung cancer. Sister(s) Family Medical History: Cancer Medications and Allergies Home Medications Medication Instructions Recorded Confirmed Type DULoxetine HCL [Cymbalta] 30 mg PO DAILY 12/31/18 08/05/23 History DULoxetine HCL [Cymbalta] 60 mg PO HS 12/31/18 08/05/23 History Gabapentin [Neurontin] 100 mg PO TID 12/31/18 08/05/23 History Levothyroxine Sodium [Synthroid] 100 mcg PO DAILY 12/31/18 08/05/23 History Loratadine [Claritin] 10 mg PO DAILY 12/31/18 08/05/23 History Spironolactone [Aldactone] 25 mg PO DAILY 12/31/18 08/05/23 History carvediloL [Coreg] 25 mg PO BID 12/31/18 08/05/23 History methocarbamoL [Methocarbamol] 500 mg PO TID 10/12/22 08/05/23 History Cholecalciferol [Vitamin D3 (25 25 mcg PO DAILY 11/01/22 08/05/23 History Mcg = 1000 Iu)] lisinopriL [Prinivil] 20 mg PO DAILY 11/01/22 08/05/23 History Apixaban [Eliquis] 5 mg PO BID 01/26/23 08/05/23 History Docusate [Colace] 100 mg PO DAILY 08/05/23 08/05/23 History Gabapentin 600 mg PO TID 08/05/23 08/05/23 History Allergies Allergy/AdvReac Type Severity Reaction Status Date / Time No Known Allergies Allergy Verified 08/05/23 10:32 Physical Examination - Vital Signs Vital Signs: Vital Signs Temp Pulse Resp BP Pulse Ox 08/05/23 07:27 97.6 F 69 16 94/54 98 08/05/23 06:33 70 19 103/57 99 08/05/23 05:24 68 19 95 08/05/23 04:30 80 18 106/66 94 L 08/05/23 03:30 68 18 130/79 98 08/05/23 03:00 68 19 127/76 96 08/05/23 02:30 71 19 141/87 99 08/05/23 02:10 98.0 F 75 17 141/75 98 08/05/23 02:00 66 16 143/84 08/05/23 01:50 97.5 F L 71 19 143/84 08/05/23 01:40 97.5 F L 74 17 141/88 08/05/23 01:20 79 17 146/78 97 08/05/23 01:10 71 8 L 147/72 99 08/05/23 01:00 75 14 129/64 97 08/05/23 00:50 65 13 129/64 98 08/05/23 00:30 64 16 131/70 99 08/05/23 00:00 98.0 F 68 19 148/83 98 08/04/23 23:50 65 17 147/83 98 08/04/23 23:41 70 15 154/79 99 08/04/23 23:30 98.2 F 64 18 154/79 98 08/04/23 23:24 63 19 147/86 99 08/04/23 23:15 98.2 F 64 18 147/86 100 08/04/23 23:00 98.2 F 63 19 152/88 98 08/04/23 22:45 98.0 F 64 18 136/82 100 08/04/23 22:30 98.0 F 61 17 137/87 99 08/04/23 22:15 98.0 F 61 17 140/82 99 08/04/23 22:00 98.0 F 61 17 139/84 99 08/04/23 21:45 98.0 F 80 18 116/70 99 08/04/23 21:32 96.9 F L 66 18 146/86 98 Intake and Output 08/04/23 08/05/23 08/05/23 22:59 06:59 14:59 Other: Weight 62.596 kg General: The pt is reclining in the bed. He is in no acute distress. HEENT: Head is normocephalic. There is a 4 inch abrasion of the midline occipital scalp, with mild surrounding edema.There is no scleral icterus. Fundus not visualized. Mucous membranes moist. Neck: Supple without bruits Heart: Regular rate and rhythm Lungs: No cough or wheezing Extremities: No edema Neurological Exam Mental status: The pt is awake, alert and oriented x3. Speech is fluent. No dysarthria or aphasia Cranial nerves: Pupils equal at 3mm and reactive. Visual alaniz full. Extraocular movements intact. No nystagmus. Facial sensation intact. No facial asymmetry. Hearing grossly intact. Uvula and palate midline. Shoulder shrug symmetric. Tongue protrudes midline. Motor: Strength is 5/5 in the bilateral upper extremities. Right hip flexor 3/5, plantar flexor3/5. Left hip flexor and plantar flexor 4/5 Sensation: Intact to light touch throughout, with the exception of decreased sensation in the right lower leg and foot. No extinction with double simultaneous stimulation Deep tendon reflexes: 2+/4+ in the upper extremities. Lower extremities ar absent. Plantar responses are flexor Coordination: Finger to nose, rapid alternating movements and heel to alcantar testing is intact Gait: Not assessed Results - Laboratory Findings CBC and BMP: 08/04/23 22:00 08/04/23 22:00 Abnormal Lab Findings: Abnormal Labs 08/04/23 08/04/23 22:00 22:00 Lymphocytes # 0.9 L Chloride 108 H Carbon Dioxide 20 L BUN 21 H Glucose 106 H Assessment and Plan Assessment: 1. Vertigo, likely related to consussion, s/p fall and head injury 2. 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 Spinal cord stimulator 4. "Sciatica" Plan: 1. Repeat CT scan of brain, in am. MRI would be ideal, however, unable to do secondary to spinal cord stimulator 2. Continue Antivert at this time 3. Physical therapy consultation Thank you for allowing us to participate in the care of this pt. Dr. Street will assume neurologic coverage of this pt as of 2023 Time with Patient: Greater than 30 (58 minute)
[2023-08-05 19:53] LABS: Amphetamine Screen,Urine Not Detected (NotDetected); Barbiturate Screen,Urine Not Detected (NotDetected); Benzodiazepines Screen,Urine Not Detected (NotDetected); Cocaine Screen,Urine Not Detected (NotDetected); Methadone Screen, Urine Not Detected (NotDetected); Opiate Screen,Urine Not Detected (NotDetected); Oxycodone Screen, Urine Not Detected (NotDetected); Phencyclidine Screen,Urine Not Detected (NotDetected); Tricyclic Antidepressant,Urine Not Detected (NotDetected); Urn Cannabinoid Scrn Not Detected (NotDetected)
[2023-08-05] MEDS: carvediloL 12.5 MG TAB PO SCH (20:12)
[2023-08-05] MEDS: APIXABAN 5 MG TAB PO SCH (20:12)
[2023-08-06] MEDS: LEVOTHYROXINE 100 MCG TAB PO SCH (06:28)
--- NOTE | 2023-08-06 08:02 | CT ---
EXAMINATION TYPE: CT brain wo con DATE OF EXAM: 08/06/2023 COMPARISON: INDICATION: Head injury, Dizziness DLP: 1126.5 mGycm, Automated exposure control for dose reduction was used. CONTRAST: None CT of the brain is performed utilizing 3 mm thick sections through the posterior fossa and 3 mm thick sections through the remaining calvarium. Study is performed within 24 hours of arrival to the hosp [facility]. No abnormal hyperdensity is present to suggest an acute intracranial hemorrhage. No mass lesion is evident. No acute infarcts are evident. Minimal periventricular white matter hypodensity is present, likely on the basis of chronic white matter ischemic changes. There is an old lacunar infarct within the left basal ganglion present previously. Ventricles and sulci are appropriate for the patient age. Mild mucosal thickening is within the right maxillary sinus. Prior sinus surgery is evident. Remainin g paranasal sinuses are clear. Mastoid air cells are clear. IMPRESSION: 1. Minimal chronic periventricular white matter ischemic changes. Old lacunar infarct is within the left basal vein. 2. No acute intracranial process. Follow-up MRI can be performed as clinically indicated.
[2023-08-06] MEDS: LORATADINE 10 MG TAB PO SCH (09:45)
[2023-08-06] MEDS: methocarbamoL 500 MG TAB PO SCH ×3 (09:45→22:06)
[2023-08-06] MEDS: APIXABAN 5 MG TAB PO SCH ×2 (09:45→22:06)
[2023-08-06] MEDS: carvediloL 12.5 MG TAB PO SCH ×2 (09:45→22:06)
[2023-08-06] MEDS: GABAPENTIN 300 MG CAP PO SCH ×3 (09:45→22:06)
--- NOTE | 2023-08-06 11:29 | P.PN ---
Subjective Progress Note Date: 08/06/23 Patient was initially seen by Dr. Null. Please refer to her note for details. Patient has head injury, concussion, resulting in vertigo. Patient has recent diagnosis of bilateral breast cancer, 2 different type involving each breast. She had recently completed chemotherapy that she received from February through 07/10/2023. She does have developed some neuropathy with numbness of the fingertips, bottom of the feet and toes. Patient states that on 08/04/2023, she remembers letting the dog in house, shut the door, was going up stairs when she felt her legs were not there, and was in the air. She tried to grab the railing, but felt had no strength in the arms also, and and she fell backwards down 2 or 3 steps, hit head on the carpeted floor. Patient does not remember how she crawled to the bedroom and called her daughter, who called the ambulance. Patient denies passing out. No history of seizures. Patient was having headaches, but seems to have gone. However she is still feeling dizzy at times, when she moves [id number], or up and down 2 fast. Denies any focal numbness or tingling. Objective - Vital Signs Vital signs: Vital Signs Temp 97.4 F L 08/06/23 07:35 Pulse 60 08/06/23 07:35 Resp 15 08/06/23 07:35 BP 123/74 08/06/23 07:35 Pulse Ox 97 08/06/23 02:24 FiO2 Intake & Output 08/05/23 08/06/23 08/06/23 18:59 06:59 18:59 Intake Total 118 118 Balance 118 118 Intake: Oral 118 118 Other: Voiding Method Toilet # Voids 1 - Exam Mental status, speech and language functions are normal. Pupils are equal, round and reacting, visual alaniz are full, face is symmetric and tongue protrudes the midline. On muscle strength testing, there is no pronator drift and the strength is normal in arms and legs. No ataxia. - Labs CBC & Chem 7: 08/04/23 22:00 08/04/23 22:00 Assessment and Plan Assessment: 1. Vertigo, likely related to consussion, s/p fall and head injury 2. 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 Spinal cord stimulator 4. "Sciatica" Plan: 1. Repeat CT scan of brain performed today revealed minimal chronic periventricular white matter ischemic changes. Old lacunar infarct within the left basal vein. No acute intracranial process. MRI would be ideal, however, unable to do secondary to spinal cord stimulator. I personally reviewed the current and previous CT head, agree with the findings. 2. Continue Antivert at this time 3. Physical therapy consultation 4. Check B12 and folate level. 5. Her headache has resolved. The dizziness will take a few days to resolve. Continue meclizine as needed. If symptoms persist, may follow up with neurologist as outpatient. B12 627, folate 12.10, both normal. Neurologically clear for discharge.
[2023-08-06] MEDS: BACITRACIN OINT 1 EACH PACKET TOPICAL SCH ×2 (16:09→22:06)
[2023-08-06] MEDS: ACETAMINOPHEN TAB 325 MG TAB PO PRN ×2 (16:13→22:17)
--- NOTE | 2023-08-06 20:29 | P.PN ---
Subjective Progress Note Date: 08/06/23 History of present illness; patient is 63-year-old lady with past medical history significant for hypothyroidism, breast cancer who presented to the ER after a fall. Patient stated that she was walking the stairs, when she lost her balance and fell down couple of steps. Patient stated that she was feeling dizzy at that time. There was no complain of loss of consciousness. There was no complain of any jerking movement of any extremity. No complaint of weakness of any extremity. There was no complain of fever or chills. Because of the fall, patient brought to the ER Initial lab work done in the ER showed WBC 6.1, hemoglobin 13.4, platelet count 170, sodium 137, potassium 3.9, BUN 21, creatinine 0.71, troponin 0.012 EKG done in the ER showed heart rate of 59, no ST segment elevation or depre ssion seen, no T-wave inversions seen. Pelvic x-ray, no fracture seen Chest x-ray done in the ER showed chronic changes without evidence for acute pulmonary disease CT head done showed no acute intracranial process CT cervical spine showed no acute fractures Patient admitted to internal medicine service 08/06/2023 Patient seen in follow-up today with neurology following and awaiting repeat head CT as patient is unable to receive MRI due to stimulator. Patient continues to have dizziness. Patient reports she feels improved since admission although continues to report some weakness. We'll have physical therapy evaluate the patient. Patient is currently afebrile with no reports of chest p ain or shortness of breath. Patient does have a mild abrasion noted to the back of her head where she fell with no redness or drainage noted. Will add bacitracin Review of systems: Constitutional: No reports of fatigue, fever, or chills Cardiovascular: No reports of chest pain or palpitations Respiratory: No reports of shortness of breath or cough GI: No reports of nausea, vomiting, or diarrhea : No reports of dysuria or retention Neurovascular: reports of generalized weakness and some continued dizziness with getting up with position changes All medications have been reviewed PHYSICAL EXAMINATION: GENERAL: The patient is alert and oriented x3, not in any acute distress. Well developed, well nourished. HEENT: Pupils are round and equally reacting to light. EOMI. No scleral icterus. No conjunctival pallor. Normocephalic, atraumatic. No pharyngeal erythema. No thyromegaly. Mild abrasion noted to the back of the head with no redness or drainage noted CARDIOVASCULAR: S1 and S2 present. No murmurs, rubs, or gallops. PULMONARY: Chest is clear to auscultation, no wheezing or crackles. ABDOMEN: Soft, nontender, nondistended, normoactive bowel sounds. No palpable organomegaly. MUSCULOSKELETAL: No joint swelling or deformity. EXTREMITIES: No cyanosis, clubbing, or pedal edema. NEUROLOGICAL: Gross neurological examination did not reveal any focal deficits. SKIN: No rashes. Assessment and plan Fall with generalized weakness Abrasion on the back of the scalp status post fall Presyncope Dizziness secondary to vertigo Hypothyroidism History of breast cancer History of PE Plan: Patient being evaluated by neurology and will have repeat CT done today as patient is unable to receive MRI due to stimulator Continue Antivert as patient reports some improvement in symptoms although continues to have dizziness with position changes and generalized weakness Will have PT/OT therapy evaluate the patient Small abrasion noted to the back of the head from the fall with no significant redness or drainage noted will add bacitracin Possible discharge planning the next 24 hours The impression and plan of care has been dictated by Debora Bryant Nurse Pract itioner as directed. Dr. Melody MD I have performed a history and examination and MDM of this patient, discussed the same with the dictator, and agree with the dictator's assessment and plan as written ,documented as a scribe. Based on total visit time, I have performed more than 50% of the visit. Objective - Vital Signs Vital signs: Vital Signs Temp 97.4 F L 08/06/23 07:35 Pulse 60 08/06/23 07:35 Resp 15 08/06/23 07:35 BP 123/74 08/06/23 07:35 Pulse Ox 97 08/06/23 02:24 FiO2 Intake & Output 08/05/23 08/06/23 08/06/23 18:59 06:59 18:59 Intake Total 118 118 Balance 118 118 Intake: Oral 118 118 Other: Voiding Method Toilet # Voids 1 - Labs CBC & Chem 7: 08/04/23 22:00 08/04/23 22:00
[2023-08-07] MEDS: LEVOTHYROXINE 100 MCG TAB PO SCH (06:11)
[2023-08-07 07:50] VITALS: BP 111/73; PULSE 65; RESP 15; TEMP 97.6
[2023-08-07] MEDS: ACETAMINOPHEN TAB 325 MG TAB PO PRN (09:08)
[2023-08-07] MEDS: methocarbamoL 500 MG TAB PO SCH (09:08)
[2023-08-07] MEDS: APIXABAN 5 MG TAB PO SCH (09:08)
[2023-08-07] MEDS: GABAPENTIN 300 MG CAP PO SCH (09:09)
[2023-08-07] MEDS: LORATADINE 10 MG TAB PO SCH (09:09)
[2023-08-07] MEDS: BACITRACIN OINT 1 EACH PACKET TOPICAL SCH (09:09)
[2023-08-07] MEDS: carvediloL 12.5 MG TAB PO SCH (09:09)
--- NOTE | 2023-08-08 06:24 | P.DS ---
Providers Date of admission: 08/05/23 02:34 Expected date of discharge: 08/07/23 Attending physician: Gokul Castellanos Consults: 08/05/23 09:19 Consult Physician Routine Consulting Provider: Soto Lau Consult Reason/Comments: Dizziness, vertigo Do you want consulting provider notified?: Yes Primary care physician: Arlette Sevilla Hospital Course: Final diagnosis Fall with generalized weakness, no LOC Abrasion on the back of the scalp status post fall Presyncope Dizziness secondary to vertigo Hypothyroidism History of breast cancer History of PE Discharge disposition Patient is being discharged in a stable condition with guarded prognosis to home. Patient will follow-up with Dr. Sevilla in the outpatient setting upon discharge. Patient is to continue with Antivert 3 times daily as needed and outpatient follow-up with neurology as scheduled. Total time taken is greater than 35 minutes. Hospital course This is a 63-year-old female who was recently admitted with fall and generalized weakness. Patient was seen and evaluated by neurology underwent CT imaging which was negative. Recommending possible MRI although patient has stimulator and unable to obtain MRIs. Patient was started on Antivert and having improvements in dizziness. Patient was evaluated by physical therapy as patient will be going home. Patient instructed to sit up at the side of the bed or chair for 1 to 2 minutes prior to getting up and ambulating and also recommend outpatient follow-up with primary care provider as well as neurology outpatient. Patient has been cleared for discharge. Please refer to neurology notes for further HPI. Currently no reports of chest pain, shortness of breath, or palpitations. Patient is afebrile. No reports of nausea or vomiting and patient is tolerating diet. Patient will be discharged home today. Guarded prognosis Physical exam: Gen: This is a 63-year-old female who is awake, alert and oriented x 3, well- developed, well-nourished HEENT: Head is atraumatic, normocephalic. Pupils equal, round. Sclerae is anicteric. NECK: Supple. No JVD. No lymphadenopathy. No thyromegaly. LUNGS: Clear to auscultation. No wheezes or rhonchi. No intercostal retractions. HEART: Regular rate and rhythm. No murmur. ABDOMEN: Soft. Bowel sounds are present. No masses. No tenderness. EXTREMITIES: No pedal edema. No calf tenderness. NEUROLOGICAL: Patient is awake, alert and oriented x3. Cranial nerves 2 through 12 are grossly intact. Please refer to medication reconciliation sheet for a list of medications. The impression and plan of care has been dictated by Debora Bryant, Nurse Practitioner as directed. Dr. Melody MD I have performed a history and examination and MDM of this patient, discussed the same with the dictator, and agree with the dictator's assessment and plan as written ,documented as a scribe. Based on total visit time, I have performed more than 50% of the visit. Patient Condition at Discharge: Fair Plan - Discharge Summary Discharge Rx Participant: Yes New Discharge Prescriptions: New Meclizine [Antivert] 25 mg PO TID PRN #60 tab PRN Reason: Vertigo Acetaminophen Tab [Tylenol] 650 mg PO Q6HR PRN tab PRN Reason: Fever And/ Or Pain Continue Levothyroxine Sodium [Synthroid] 100 mcg PO DAILY DULoxetine HCL [Cymbalta] 60 mg PO HS Loratadine [Claritin] 10 mg PO DAILY DULoxetine HCL [Cymbalta] 30 mg PO DAILY carvediloL [Coreg] 25 mg PO BID Spironolactone [Aldactone] 25 mg PO DAILY Gabapentin [Neurontin] 100 mg PO TID methocarbamoL 500 mg PO TID Cholecalciferol [Vitamin D3 (25 Mcg = 1000 Iu)] 25 mcg PO DAILY Docusate [Colace] 100 mg PO DAILY Gabapentin 600 mg PO TID Apixaban [Eliquis] 5 mg PO BID Discontinued lisinopriL [Prinivil] 20 mg PO DAILY Discharge Medication List DULoxetine HCL [Cymbalta] 30 mg PO DAILY 12/31/18 [History] DULoxetine HCL [Cymbalta] 60 mg PO HS 12/31/18 [History] Gabapentin [Neurontin] 100 mg PO TID 12/31/18 [History] Levothyroxine Sodium [Synthroid] 100 mcg PO DAILY 12/31/18 [History] Loratadine [Claritin] 10 mg PO DAILY 12/31/18 [History] Spironolactone [Aldactone] 25 mg PO DAILY 12/31/18 [History] carvediloL [Coreg] 25 mg PO BID 12/31/18 [History] methocarbamoL 500 mg PO TID 10/12/22 [History] Cholecalciferol [Vitamin D3 (25 Mcg = 1000 Iu)] 25 mcg PO DAILY 11/01/22 [History] Apixaban [Eliquis] 5 mg PO BID 01/26/23 [History] Docusate [Colace] 100 mg PO DAILY 08/05/23 [History] Gabapentin 600 mg PO TID 08/05/23 [History] Acetaminophen Tab [Tylenol] 650 mg PO Q6HR PRN tab 08/07/23 [Rx] Meclizine [Antivert] 25 mg PO TID PRN #60 tab 08/07/23 [Rx] Follow up Appointment(s)/Referral(s): Arlette Sevilla MD [Primary Care Provider] - 1-2 days Lauren Banegas MD [REFERRING] - 1 Week Patient Instructions/Handouts: Fall Prevention (DC) Activity/Diet/Wound Care/Special Instructions: Activity limited until follow-up Follow-up with primary care provider on discharge and discuss if neurology referral is required for outpatient follow-up Continue taking medications as prescribed Follow-up with neurology outpatient Continue with bacitracin once to twice daily on the back of the scalp When getting up slowly sit up at the side of the bed or the chair for 1 to 2 minutes prior to getting up Discharge Disposition: HOME SELF-CARE
--- NOTE | 2023-08-08 12:52 | P.PN ---
Subjective Progress Note Date: 08/07/23 08/07/2023: Patient was seen for a follow-up. Patient states she is feeling better. Offers no new complaints. Continues to have some soreness in the neck, likely from the fall. The headache has completely resolved. Dizziness is getting better. 08/06/2023: Patient was initially seen by Dr. Null. Please refer to her note for details. Patient has head injury, concussion, resulting in vertigo. Patient has recent diagnosis of bilateral breast cancer, 2 different type invol ving each breast. She had recently completed chemotherapy that she received from February through 07/10/2023. She does have developed some neuropathy with numbness of the fingertips, bottom of the feet and toes. Patient states that on 08/04/2023, she remembers letting the dog in house, shut the door, was going up stairs when she felt her legs were not there, and was in the air. She tried to grab the railing, but felt had no strength in the arms also, and and she fell backwards down 2 or 3 steps, hit head on the carpeted floor. Patient does not remember how she crawled to the bedroom and called her daughter, who called the ambulance. Patient denies passing out. No history of seizures. Patient was having headaches, but seems to have gone. However she is still feeling dizzy at times, when she moves [id number], or up and down 2 fast. Denies any focal numbness or tingling. Objective - Vital Signs Vital signs: Vital Signs Temp 97.6 F 08/07/23 07:00 Pulse 65 08/07/23 07:00 Resp 15 08/07/23 07:00 BP 111/73 08/07/23 07:00 Pulse Ox 97 08/07/23 08:41 FiO2 Intake & Output 08/06/23 08/07/23 08/07/23 18:59 06:59 18:59 Intake Total 354 Balance 354 Intake: Oral 354 Other: Voiding Method Toilet # Voids 3 1 - Exam Mental status, speech and language functions are normal. Pupils are equal, round and reacting, visual alaniz are full, face is symmetric and tongue protrudes the midline. Patient has alopecia from recent chemotherapy. On muscle strength testing, there is no pronator drift and the strength is normal in arms and legs. No ataxia. Sensory to touch is equal. Patient walked in the room by herself, appeared fairly stable. Walking with a normal base and stride. - Labs CBC & Chem 7: 08/04/23 22:00 08/04/23 22:00 Assessment and Plan Assessment: 1. Vertigo, likely related to consussion, s/p fall and head injury 2. 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 Spinal cord stimulator 4. "Sciatica" 5. History of bilateral breast cancer, stage III left side. Status post completed chemotherapy 07/10/2023. 6. Obesity Plan: 1. Repeat CT scan of brain performed 08/06/2023 revealed minimal chronic perive ntricular white matter ischemic changes. Old lacunar infarct within the left basal vein. No acute intracranial process. MRI would be ideal, however, unable to do secondary to spinal cord stimulator. I personally reviewed the current and previous CT head, agree with the findings. 2. Continue Antivert as needed. 3. Physical therapy consultation 4. B12 627, folate 12.10, both normal. 5. Her headache has resolved. The dizziness will take a few days to resolve. Continue meclizine as needed. If symptoms persist, may follow up with neurologist as outpatient. 6. Patient has just completed chemotherapy on 07/10/2023. She is scheduled to undergo bilateral mastectomy followed by radiation therapy in the future. Her fall was likely related to mild peripheral neuropathy related to chemotherapy. Sometimes neuropathy gets worse after completion of chemotherapy before it starts getting better. Patient has to be careful particularly going up and down steps. Patient was recommended to follow-up with the oncologist, if any brain MRI would be necessary, although I do not believe it is indicated at this time based upon her history and examination. Neurologically clear for discharge.
== END 2023-08-07 14:26 | disposition home or self-care (01) ==
LOC: EC 21:30 → 6NMEDSUR 08-05 02:34
PROVIDERS: ADMIT Hospitalist; ATTEND Hospitalist
DX: R55 Syncope and collapse (principal); R42 Dizziness and giddiness; R53.1 Weakness; S00.01XA Abrasion of scalp, initial encounter; W10.9XXA Fall (on) (from) unspecified stairs and steps, initial encounter; G62.0 Drug-induced polyneuropathy; T45.1X5A Adverse effect of antineoplastic and immunosuppressive drugs, initial encounter; M54.30 Sciatica, unspecified side; E78.5 Hyperlipidemia, unspecified; I10 Essential (primary) hypertension; G47.30 Sleep apnea, unspecified; E03.9 Hypothyroidism, unspecified; E66.9 Obesity, unspecified; Z68.23 Body mass index [BMI] 23.0-23.9, adult; Z85.3 Personal history of malignant neoplasm of breast; Z86.711 Personal history of pulmonary embolism; Z86.718 Personal history of other venous thrombosis and embolism; Z87.891 Personal history of nicotine dependence; Z91.81 History of falling; Z96.82 Presence of neurostimulator; Z79.01 Long term (current) use of anticoagulants; Z79.890 Hormone replacement therapy; Z79.899 Other long term (current) drug therapy; Y93.01 Activity, walking, marching and hiking
CPT/HCPCS: 96361; 96374; 99285; 36415; 94760 ×2; 93005; 97162; 80053; 82607; 82746; 84484; 85025; 85610; 85730; 80306; 80320; 72170; 71045; 72125; 70450 ×2; G0378 ×3; G0390; J2405

== ENCOUNTER → 2023-08-20 | Outpatient (CLI) | payer MEDICARE, OTHER ==
--- NOTE | 2023-08-20 16:53 | XR ---
EXAMINATION TYPE: XR chest 2V DATE OF EXAM: 08/20/2023 3:23 PM CLINICAL INDICATION:Female, 63 years old with history of C50.919 MALIGNANT NEOPLASM OF UNSP SITE OF U NSPECI; COMPARISON: Chest radiographs from 08/04/2023 TECHNIQUE: XR chest 2V Frontal and lateral views of the chest. FINDINGS: Lungs/Pleura: There is no evidence of pleural effusion, focal consolidation, or pneumothorax. Pulmonary vascularity: Unremarkable. Heart/mediastinum: Cardiomediastinal silhouette is unremarkable. Musculoskeletal: No acute osseous pathology. Stimulator leads terminating over the spine. Lines/Tubes: [id number] projecting over the right hemithorax with distal tip projecting over the superior vena cava. IMPRESSION: No acute cardiopulmonary disease/process.
== END | disposition home or self-care (01) ==
LOC: RADXRMAIN 15:10
PROVIDERS: ATTEND Family Medicine
DX: C50.919 Malignant neoplasm of unspecified site of unspecified female breast (principal)
CPT/HCPCS: 71046

== ENCOUNTER 2024-06-03 13:17 | Inpatient (IN) | payer MEDICARE ==
--- NOTE | 2024-06-03 13:48 | ED ---
General Adult HPI - General Chief complaint: Weakness Stated complaint: Fall-Chemo Time Seen by Provider: 06/03/24 13:18 Source: patient, EMS, RN notes reviewed Mode of arrival: EMS Limitations: no limitations - History of Present Illness Initial comments: 64 year old female presents to emergency department with chief complaint of fall via EMS. She states that she began taking her chemo medications about 3 days ago and since then has been having nausea, vomiting, and diarrhea for which she has been taking Imodium. She feels like she is dehydrated, with leg cramping and lightheadedness. She did not strike hear head when she fell. She is on blood thi nners. Her only complaint is right ankle pain and swelling. She denies shortness of breath, chest pain, and loss of consciousness. She denies leg swelling prior to this fall. - Related Data Home Medications Medication Instructions Recorded Confirmed DULoxetine HCL [Cymbalta] 30 mg PO DAILY 12/31/18 08/05/23 DULoxetine HCL [Cymbalta] 60 mg PO HS 12/31/18 08/05/23 Gabapentin [Neurontin] 100 mg PO TID 12/31/18 08/05/23 Levothyroxine Sodium [Synthroid] 100 mcg PO DAILY 12/31/18 08/05/23 Loratadine [Claritin] 10 mg PO DAILY 12/31/18 08/05/23 Spironolactone [Aldactone] 25 mg PO DAILY 12/31/18 08/05/23 carvediloL [Coreg] 25 mg PO BID 12/31/18 08/05/23 methocarbamoL 500 mg PO TID 10/12/22 08/05/23 Cholecalciferol [Vitamin D3 (25 25 mcg PO DAILY 11/01/22 08/05/23 Mcg = 1000 Iu)] Apixaban [Eliquis] 5 mg PO BID 01/26/23 08/05/23 Docusate [Colace] 100 mg PO DAILY 08/05/23 08/05/23 Gabapentin 600 mg PO TID 08/05/23 08/05/23 Previous Rx's Medication Instructions Recorded Acetaminophen Tab [Tylenol] 650 mg PO Q6HR PRN tab 08/07/23 Meclizine [Antivert] 25 mg PO TID PRN #60 tab 08/07/23 Allergies Allergy/AdvReac Type Severity Reaction Status Date / Time No Known Allergies Allergy Verified 06/03/24 13:26 Review of Systems ROS Statement: Those systems with pertinent positive or pertinent negative responses have been documented in the HPI. ROS Other: All systems not noted in ROS Statement are negative. Past Medical History Past Medical History: Cancer, Deep Vein Thrombosis (DVT), Hyperlipidemia, Hypertension, Sleep Apnea/CPAP/BIPAP, Thyroid Disorder Additional Past Medical History / Comment(s): Current left breast cancer. Current "small DVT behind left knee and DVT from groin to ankle in right leg". Leg cramps. Back pain. Hx migraines. Supposed to use CPAP, "haven't used it in years". History of Any Multi-Drug Resistant Organisms: None Reported Past Surgical History: Back Surgery, Tonsillectomy Additional Past Surgical History / Comment(s): Spinal cord stimulator, multiple back surgeries, colonoscopy. Past Anesthesia/Blood Transfusion Reactions: No Reported Reaction, Motion Sickness Additional Past Anesthesia/Blood Transfusion Reaction / Comment(s): Extremely difficult IV start, states had to to have central line for one of her back surgeries, has have Midline IV access as well. Past Psychological History: No Psychological Hx Reported Smoking Status: Former smoker Past Alcohol Use History: Rare Past Drug Use History: None Reported - Past Family History Father Family Medical History: Cancer, Deep Vein Thrombosis (DVT), Pulmonary Embolus Additional Family Medical History / Comment(s): Lung cancer. Sister(s) Family Medical History: Cancer General Exam General appearance: alert, in no apparent distress Head exam: Present: atraumatic, normocephalic, normal inspection Eye exam: Present: normal appearance, PERRL, EOMI. Absent: scleral icterus, conjunctival injection, periorbital swelling ENT exam: Present: normal exam, mucous membranes moist Neck exam: Present: normal inspection. Absent: tenderness, meningismus, lymphad enopathy Respiratory exam: Present: normal lung sounds bilaterally. Absent: respiratory distress, wheezes, rales, rhonchi, stridor Cardiovascular Exam: Present: regular rate, normal rhythm, normal heart sounds. Absent: systolic murmur, diastolic murmur, rubs, gallop, clicks GI/Abdominal exam: Present: soft, normal bowel sounds. Absent: distended, tenderness, guarding, rebound, rigid Extremities exam: Present: normal inspection, full ROM, normal capillary refill. Absent: tenderness, pedal edema, joint swelling, calf tenderness Back exam: Present: normal inspection Neurological exam: Present: alert, oriented X3, CN II-XII intact Psychiatric exam: Present: normal affect, normal mood Skin exam: Present: warm, dry, intact, normal color. Absent: rash Course Vital Signs 06/03/24 06/03/24 13:18 15:14 Temperature 97.7 F Pulse Rate 80 84 Respiratory 20 20 Rate Blood Pressure 95/49 107/71 O2 Sat by Pulse 97 95 Oximetry EKG Findings - EKG Comments: EKG Findings:: EKG performed at 13: 41 sinus rhythm rate of 79 [place] 166 QRS 89 QT/QTc 383/417 - EKG Results: EKG: interpreted by ALEXANDRA Medical Decision Making - Medical Decision Making Was pt. sent in by a medical professional or institution (, PA, TAMPING MACHINE OPERATOR, urgent care, hospital, or jail...) When possible be specific @ -[No] Did you speak to anyone other than the patient for history (EMS, parent, family, police, friend...)? What history was obtained from this source @ -[No] Did you review nursing and triage notes (agree or disagree)? Why? @ -[I reviewed and agree with nursing and triage notes] Were old charts reviewed (outside hosp., previous admission, EMS record, old EKG, old radiological studies, urgent care reports/EKG's, jail records)? Report findings @ -[No old charts were reviewed] Differential Diagnosis (chest pain, altered mental status, abdominal pain women, abdominal pain men, vaginal bleeding, weakness, fever, dyspnea, syncope, headache, dizziness, GI bleed, back pain, seizure, CVA, palpatations, mental health, musculoskeletal)? @ -Differential Weakness: Hypoglycemia, shock, sepsis, hyponatremia, anemia, infection, [place], ETOH, adverse medicine reaction, overdose, stroke, this is not meant to be an all-inclusive list. EKG interpreted by me (3pts min.). @ -[As above] X-rays interpreted by me (1pt min.). @ -X-ray ankle 3 view no acute fracture CT interpreted by me (1pt min.). @ -[None done] U/S interpreted by me (1pt. min.). @ -[None done] What testing was considered but not performed or refused? (CT, X-rays, U/S, labs)? Why? @ -None What meds were considered but not given or refused? Why? @ -None Did you discuss the management of the patient with other professionals (professionals i.e. , PA, TAMPING MACHINE OPERATOR, lab, RT, psych nurse, social service technician, buildings painter, teacher, international first officer, case management social worker)? Give summary @ -EMH for admission Was smoking cessation discussed for >3mins.? @ -No Was critical care preformed (if so, how long)? @ -No Were there social determinants of health that impacted care today? How? (Homelessness, low income, unemployed, alcoholism, drug addiction, tra nsportation, low edu. Level, literacy, decrease access to med. care, retirement, rehab)? @ -No Was there de-escalation of care discussed even if they declined (Discuss DNR or withdrawal of care, Hospice)? DNR status @ -No What co-morbidities impacted this encounter? (DM, HTN, Smoking, COPD, CAD, Cancer, CVA, ARF, Chemo, Hep., AIDS, mental health diagnosis, sleep apnea, morbid obesity)? @ -Breast cancer Was patient admitted / discharged? Hospital course, mention meds given and route, prescriptions, significant lab abnormalities, going to OR and other pertinent info. @ -Admitted patient's had persistent nausea vomiting diarrhea patient is acutely dehydrated, weakness. Patient will be admitted for IV fluid hydration and further evaluation by oncology. Undiagnosed new problem with uncertain prognosis? @ -No Drug Therapy requiring intensive monitoring for toxicity (Heparin, Nitro, Insulin, Cardizem)? @ -No Were any procedures done? @ -No Diagnosis/symptom? @ -Dehydration, nausea vomit diarrhea Acute, or Chronic, or Acute on Chronic? @ -Acute Uncomplicated (without systemic symptoms) or Complicated (systemic symptoms)? @ -Complicated Side effects of treatment? @ -No Exacerbation, Progression, or Severe Exacerbation? @ -No Poses a threat to life or bodily function? How? (Chest pain, [place], [place], pneumonia, PE, COPD, DKA, ARF, appy, cholecystitis, CVA, Diverticulitis, Homicidal, Suicidal, threat to staff... and all critical care pts) @ -No - Lab Data Result diagrams: 06/03/24 14:10 06/03/24 14:10 Lab Results 06/03/24 06/03/24 06/03/24 Range/Units 14:10 14:10 14:10 WBC 5.3 (3.8-10.6) k/uL RBC 4.40 (3.80-5.40) m/uL Hgb 14.1 (11.4-16.0) gm/dL Hct 42.0 (34.0-46.0) % MCV 95.5 (80.0-100.0) fL MCH 32.0 (25.0-35.0) pg MCHC 33.6 (31.0-37.0) g/dL RDW 13.2 (11.5-15.5) % Plt Count 191 (150-450) k/uL MPV 6.7 Neutrophils % 92 % Lymphocytes % 5 % Monocytes % 2 % Eosinophils % 1 % Basophils % 0 % Neutrophils # 4.9 (1.3-7.7) k/uL Lymphocytes # 0.3 L (1.0-4.8) k/uL Monocytes # 0.1 (0-1.0) k/uL Eosinophils # 0.1 (0-0.7) k/uL Basophils # 0.0 (0-0.2) k/uL Sodium 130 L (137-145) mmol/L Potassium 4.1 (3.5-5.1) mmol/L Chloride 103 (98-107) mmol/L Carbon Dioxide 20 L (22-30) mmol/L Anion Gap 7 mmol/L BUN 19 H (7-17) mg/dL Creatinine 1.18 H (0.52-1.04) mg/dL Est GFR (CKD-EPI)AfAm 57 (>60 ml/min/1.73 sqM) Est GFR (CKD-EPI)NonAf 49 (>60 ml/min/1.73 sqM) Glucose 130 H (74-99) mg/dL Plasma Lactic Acid Juan Carlos 1.1 (0.7-2.0) mmol/L Calcium 9.1 (8.4-10.2) mg/dL Magnesium 1.4 L (1.6-2.3) mg/dL Total Bilirubin 1.3 (0.2-1.3) mg/dL AST 24 (14-36) U/L ALT 14 (4-34) U/L Alkaline Phosphatase 66 (38-126) U/L Total Protein 6.2 L (6.3-8.2) g/dL Albumin 3.9 (3.5-5.0) g/dL Disposition Clinical Impression: Dehydration, Nausea vomiting and diarrhea, Hypomagnesemia, Ankle sprain Disposition: ADMITTED IP TO THIS HOSP Condition: Fair Referrals: Arlette Sevilla MD [Primary Care Provider] - 1-2 days Time of Disposition: 16:01
[2024-06-03 14:14] LABS: Basophils % (A) 0 %; Eosinophils # (A) 0.1 k/uL (0-0.7); Eosinophils % (A) 1 %; HGB 14.1 gm/dL (11.4-16.0); Lymphocytes # (A) 0.3 k/uL (1.0-4.8); Lymphocytes % (A) 5 %; MCHC 33.6 g/dL (31.0-37.0); MCV 95.5 fL (80.0-100.0); Mean Platelet Volume 6.7; Monocytes # (A) 0.1 k/uL (0-1.0); Monocytes % (A) 2 %; Neutrophils # (A) 4.9 k/uL (1.3-7.7); Neutrophils % (A) 92 %; Platelet Count 191 k/uL (150-450); RDW 13.2 % (11.5-15.5); WBC 5.3 k/uL (3.8-10.6)
[2024-06-03] MEDS: ONDANSETRON 4 MG/2 ML VIAL IVP STA (14:25)
[2024-06-03] MEDS: SODIUM CHLORIDE 0.9% 1,000 ML IV ONE (14:26)
[2024-06-03] MEDS: SODIUM CHLORIDE 0.9% 500 ML 500 ML IV ONE (14:27)
[2024-06-03 14:31] LABS: ALT 14 U/L (4-34); AST 24 U/L (14-36); African American GFR (CKD) 57 (>60 ml/min/1.73 sqM); Albumin 3.9 g/dL (3.5-5.0); Alkaline Phosphatase 66 U/L (38-126); Anion Gap 7 mmol/L; Blood Urea Nitrogen 19 mg/dL (7-17); Calcium 9.1 mg/dL (8.4-10.2); Carbon Dioxide 20 mmol/L (22-30); Chloride 103 mmol/L (98-107); Glucose 130 mg/dL (74-99); Magnesium 1.4 mg/dL (1.6-2.3); Non-African American GFR(CKD) 49 (>60 ml/min/1.73 sqM); Potassium 4.1 mmol/L (3.5-5.1); Sodium 130 mmol/L (137-145); Total Bilirubin 1.3 mg/dL (0.2-1.3); Total Protein 6.2 g/dL (6.3-8.2)
--- NOTE | 2024-06-03 15:39 | XR ---
EXAMINATION TYPE: XR ankle complete RT DATE OF EXAM: 06/03/2024 2:58 PM COMPARISON: None CLINICAL INDICATION: Female, 64 years old with history of Pain; TECHNIQUE: XR ankle complete RT; ankle is imaged in frontal, lateral and oblique projections. FINDINGS: There is no evidence of acute osseous pathology. No evidence of subluxation or dislocation. Kager's fat pad is intact. Mild soft tissue swelling around the ankle. No radiopaque foreign bodies are ident ified. Multifocal degeneration changes throughout the joints of the foot with osteophyte formation an d joint space narrowing. Calcaneal plantar spurring is present. Calcaneal Achilles enthesophyte. IMPRESSION: 1. No evidence of acute fracture. 2. Subcutaneous swelling around the ankle correlate for cellulitis. No evidence of fracture. [facility], , 06/03/2024 3:36 PM
[2024-06-03] MEDS: KETOROLAC 15 MG/ML 1 ML VIAL IVP STA (15:52)
[2024-06-03] MEDS: ORPHENADRINE 30 MG/ML 2 ML VIAL IVP STA (15:52)
[2024-06-03] MEDS: MAGNESIUM SULFATE-D5W PMX 1 GM in DEXTROSE/WATER 1 100ML.BAG IVPB ONE (15:53)
[2024-06-03] MEDS ORDERED: NALOXONE 0.4 MG/ML 1 ML VIAL IV PRN (16:01)
[2024-06-03 17:24] LABS: Appearance,Urine Clear (Clear); Bilirubin,Urine Negative (Negative); Blood,Urine Negative (Negative); Color,Urine Yellow; Glucose,Urine (UA) Negative (Negative); Ketones,Urine 1+ (Negative); Leukocyte Esterase,Urine Negative (Negative); Nitrite,Urine Negative (Negative); Protein,Urine Trace (Negative); Specific Gravity,Urine 1.022 (1.001-1.035); Urobilinogen,Urine <2.0 mg/dL (<2.0)
[2024-06-03] MEDS: HYDROcodone/APAP 5-325MG 1 EACH TAB PO PRN (17:52)
[2024-06-03] MEDS: SODIUM CHLORIDE 0.9% 1,000 ML IV SCH (17:53)
[2024-06-03] MEDS: methocarbamoL 500 MG TAB PO SCH (21:08)
[2024-06-03] MEDS: APIXABAN 2.5 MG TABLET PO SCH (21:08)
[2024-06-03] MEDS: DULoxetine HCL 60 MG CAPSULE.DR PO SCH (21:09)
[2024-06-03] MEDS: carvediloL 12.5 MG TAB PO SCH (21:13)
[2024-06-04 07:46] LABS: Basophils % (A) 0 %; Eosinophils # (A) 0.1 k/uL (0-0.7); Eosinophils % (A) 5 %; HCT 35.7 % (34.0-46.0); HGB 12.1 gm/dL (11.4-16.0); Lymphocytes # (A) 0.3 k/uL (1.0-4.8); Lymphocytes % (A) 13 %; MCH 31.7 pg (25.0-35.0); MCV 93.3 fL (80.0-100.0); Mean Platelet Volume 7.4; Monocytes # (A) 0.1 k/uL (0-1.0); Monocytes % (A) 6 %; Neutrophils # (A) 1.7 k/uL (1.3-7.7); Neutrophils % (A) 74 %; Platelet Count 161 k/uL (150-450); RBC 3.82 m/uL (3.80-5.40); RDW 13.4 % (11.5-15.5); WBC 2.3 k/uL (3.8-10.6)
[2024-06-04 08:01] LABS: ALT 13 U/L (4-34); AST 22 U/L (14-36); African American GFR (CKD) 78 (>60 ml/min/1.73 sqM); Albumin 3.3 g/dL (3.5-5.0); Albumin/Globulin Ratio 1.6; Alkaline Phosphatase 58 U/L (38-126); Anion Gap 7 mmol/L; Blood Urea Nitrogen 18 mg/dL (7-17); Calcium 8.7 mg/dL (8.4-10.2); Carbon Dioxide 23 mmol/L (22-30); Chloride 101 mmol/L (98-107); Globulin 2.1 g/dL; Glucose 91 mg/dL (74-99); Magnesium 1.7 mg/dL (1.6-2.3); Non-African American GFR(CKD) 67 (>60 ml/min/1.73 sqM); Potassium 3.6 mmol/L (3.5-5.1); Sodium 131 mmol/L (137-145); Total Bilirubin 0.7 mg/dL (0.2-1.3); Total Protein 5.4 g/dL (6.3-8.2)
[2024-06-04] MEDS: LEVOTHYROXINE 100 MCG TAB PO SCH (11:13)
[2024-06-04] MEDS: DULoxetine HCL 30 MG CAPSULE.DR PO SCH (11:14)
[2024-06-04] MEDS: MECLIZINE 25 MG TAB PO SCH (11:14)
[2024-06-04] MEDS: PANTOPRAZOLE 40 MG/10 ML VIAL IV SCH (11:15)
[2024-06-04] MEDS: LETROZOLE 2.5 MG TAB PO SCH (11:15)
[2024-06-04] MEDS: GABAPENTIN 400 MG CAP PO SCH (12:42)
[2024-06-04] MEDS: LOPERAMIDE 2 MG CAP PO PRN (14:02)
--- NOTE | 2024-06-04 15:15 | P.HPIM ---
History of Present Illness H&P Date: 06/04/24 This is a very pleasant 64-year-old female who presented to the emergency department with increased weakness along with nausea and concerns of dehydration with significant diarrhea that have been ongoing for the last few days. Patient follows with Dr. Jones in the outpatient setting with a past medical history of breast cancer maintained on oral chemo medications although at a reduced rate as patient was on Femara and had previous symptoms of nausea vomiting diarrhea and has been working with oncology in the outpatient setting adjusting doses for patient to continue taking. Patient also reports she fell having right ankle pain with inability to ambulate. Images in the ER showed no evidence of acute fracture with subcutaneous swelling around the ankle. Positive pulses noted and there is some discoloration on the toe and patient reports she fell forward and her legs bended under her. Patient reports she does live alone and has a cane although will consult PT/OT therapy as patient may benefit from a walker on discharge. Labs reviewed on admission with a white count of 5.3, hemoglobin stable at 14.1, platelets 191, sodium 130, potassium 4.1, BUN 19, creatinine 1.18, glucose was 130, magnesium 1.4, urinalysis was done which was negative. Patient was admitted for dehydration and started on gentle hydration and admitted to the hospital for further evaluation. Consulted oncology and appreciate input and recommendations. Patient denies being around anybody sick, no recent fevers and no recent antibiotics. Magnesium was noted to be 1.4 and replaced with today's magnesium level being 1.7. Sodium is improved at 131 as well. Will continue hydration and monitor overnight and await PT/OT therapy evaluation. REVIEW OF SYSTEMS: CONSTITUTIONAL: No fever, no malaise, no fatigue. HEENT: No recent visual problems or hearing problems. Denied any sore throat. CARDIOVASCULAR: No chest pain, orthopnea, PND, no palpitations, no syncope. PULMONARY: No shortness of breath, no cough, no hemoptysis. GASTROINTESTINAL: Reports significant diarrhea, reports nausea, no vomiting, no abdominal pain. NEUROLOGICAL: No headaches, reports of generalized weakness and right ankle p ain, no numbness. HEMATOLOGICAL: Denies any bleeding or petechiae. GENITOURINARY: Denies any burning micturition, frequency, or urgency. MUSCULOSKELETAL/RHEUMATOLOGICAL: Denies any joint pain, swelling, or any muscle pain. Reports right ankle pain and swelling status post fall ENDOCRINE: Denies any polyuria or polydipsia. The rest of the 14-point review of systems is negative. PHYSICAL EXAMINATION: GENERAL: The patient is alert and oriented x3, not in any acute distress. Well developed, well nourished. Obese HEENT: Pupils are round and equally reacting to light. EOMI. No scleral icterus. No conjunctival pallor. Normocephalic, atraumatic. No pharyngeal erythema. No thyromegaly. CARDIOVASCULAR: S1 and S2 present. No murmurs, rubs, or gallops. PULMONARY: Chest is clear to auscultation, no wheezing or crackles. ABDOMEN: Soft, obese, nontender, nondistended, normoactive bowel sounds. No palpable organomegaly. MUSCULOSKELETAL: No joint swelling or deformity. EXTREMITIES: No cyanosis, clubbing, or pedal edema. NEUROLOGICAL: Gross neurological examination did not reveal any focal deficits. Generalized weakness SKIN: No rashes. Some bruising noted of the right ankle and right great toe status post fall Assessment: Nausea and diarrhea, possibly acute gastritis Dehydration with acute kidney injury secondary to above, improving History of breast cancer, stage III on oral chemo medication Right ankle pain status post fall, no fractures noted History of DVT Hyperlipidemia Hypertension Sleep apnea Hypothyroidism Former smoker Obesity with a BMI 37.8 GI prophylaxis DVT prophylaxis Full code Plan: Patient was admitted with generalized weakness and will have PT/OT therapy evaluate the patient and also noted to have right ankle pain and swelling status post fall. No fractures noted. Await further PT evaluation and recommendations Continue [place] wrapping and icing and elevating right lower extremity Home medications reviewed and resumed as appropriate Oncology following as patient follows with Dr. Jones in the outpatient setting maintained on oral chemo medications for breast cancer Follow-up on repeat labs and replace electrolytes per protocol Continue gentle hydration and slowly increase oral intake with small frequent meals and advance as tolerated Possible discharge planning in the next 24 to 48 hours The impression and plan of care has been dictated by Debora Bryant Nurse Practitioner as directed. Dr. Sondra MD I have performed a history and examination and MDM of this patient, discussed the same with the dictator, and agree with the dictator's assessment and plan as written ,documented as a scribe. Based on total visit time, I have performed more than 50% of the visit. Past Medical History Past Medical History: Cancer, Deep Vein Thrombosis (DVT), Hyperlipidemia, Hy pertension, Sleep Apnea/CPAP/BIPAP, Thyroid Disorder Additional Past Medical History / Comment(s): HX of breast cancer with lymphnodectomy bilat. HX DVT currentlt Eloquis. History of Any Multi-Drug Resistant Organisms: None Reported Past Surgical History: Back Surgery, Tonsillectomy Additional Past Surgical History / Comment(s): Spinal cord stimulator, multiple back surgeries, colonoscopy. Past Anesthesia/Blood Transfusion Reactions: No Reported Reaction, Motion Sickness Additional Past Anesthesia/Blood Transfusion Reaction / Comment(s): Extremely difficult IV start, states had to to have central line for one of her back surgeries, has have Midline IV access as well. Past Psychological History: No Psychological Hx Reported Smoking Status: Former smoker Past Alcohol Use History: Rare Additional Past Alcohol Use History / Comment(s): Smoking quit many yrs ago. Past Drug Use History: None Reported - Past Family History Father Family Medical History: Cancer, Deep Vein Thrombosis (DVT), Pulmonary Embolus Additional Family Medical History / Comment(s): Lung cancer. Sister(s) Family Medical History: Cancer Medications and Allergies Home Medications Medication Instructions Recorded Confirmed Type DULoxetine HCL [Cymbalta] 30 mg PO DAILY 12/31/18 06/03/24 History DULoxetine HCL [Cymbalta] 60 mg PO HS 12/31/18 06/03/24 History Levothyroxine Sodium [Synthroid] 100 mcg PO DAILY 12/31/18 06/03/24 History Spironolactone [Aldactone] 25 mg PO DAILY 12/31/18 06/03/24 History carvediloL [Coreg] 25 mg PO BID 12/31/18 06/03/24 History methocarbamoL 500 mg PO TID 10/12/22 06/03/24 History Cholecalciferol [Vitamin D3 (25 25 mcg PO DAILY@1500 11/01/22 06/03/24 History Mcg = 1000 Iu)] Apixaban [Eliquis] 2.5 mg PO BID 06/03/24 06/03/24 History Cyanocobalamin (Vitamin B-12) 1,000 mcg PO DAILY@1500 06/03/24 06/03/24 History [Vitamin B-12] Gabapentin [Neurontin] 400 mg PO TID 06/03/24 06/03/24 History Letrozole [Femara] 2.5 mg PO DAILY 06/03/24 06/03/24 History Loperamide HCl [Imodium A-D] 2 mg PO Q4H PRN 06/03/24 06/03/24 History Meclizine [Antivert] 25 mg PO DAILY 06/03/24 06/03/24 History rOPINIRole HCL [Requip] 1 mg PO BID 06/03/24 06/03/24 History Allergies Allergy/AdvReac Type Severity Reaction Status Date / Time No Known Allergies Allergy Verified 06/03/24 16:41 Physical Exam Vitals: Vital Signs Temp Pulse Pulse Resp BP BP Pulse Ox 06/04/24 08:26 97.8 F 90 18 130/89 96 06/04/24 07:46 97.8 F 88 18 128/85 95 06/04/24 07:30 64 18 105/60 98 06/03/24 18:35 75 20 115/75 97 06/03/24 15:14 84 20 107/71 95 06/03/24 13:18 97.7 F 80 20 95/49 97 Intake and Output 06/03/24 06/04/24 06/04/24 22:59 06:59 14:59 Other: Weight 99.79 kg Results CBC & Chem 7: 06/04/24 07:12 06/04/24 07:12 Labs: Abnormal Lab Results - Last 24 Hours (Table) 06/03/24 06/03/24 06/03/24 Range/Units 14:10 14:10 17:08 WBC (3.8-10.6) k/uL Lymphocytes # 0.3 L (1.0-4.8) k/uL Sodium 130 L (137-145) mmol/L Carbon Dioxide 20 L (22-30) mmol/L BUN 19 H (7-17) mg/dL Creatinine 1.18 H (0.52-1.04) mg/dL Glucose 130 H (74-99) mg/dL Magnesium 1.4 L (1.6-2.3) mg/dL Total Protein 6.2 L (6.3-8.2) g/dL Albumin (3.5-5.0) g/dL Urine Protein Trace H (Negative) Urine Ketones 1+ H (Negative) 06/04/24 06/04/24 Range/Units 07:12 07:12 WBC 2.3 L (3.8-10.6) k/uL Lymphocytes # 0.3 L (1.0-4.8) k/uL Sodium 131 L (137-145) mmol/L Carbon Dioxide (22-30) mmol/L BUN 18 H (7-17) mg/dL Creatinine (0.52-1.04) mg/dL Glucose (74-99) mg/dL Magnesium (1.6-2.3) mg/dL Total Protein 5.4 L (6.3-8.2) g/dL Albumin 3.3 L (3.5-5.0) g/dL Urine Protein (Negative) Urine Ketones (Negative) Thrombosis Risk Factor Assmnt - DVT/VTE Prophylaxis DVT/VTE Prophylaxis: Pharmacologic Prophylaxis ordered - Choose All That Apply Any of the Below Risk Factors Present?: Yes Each Risk Factor Represents 2 Points: Age 61-74 years Each Risk Factor Represents 3 Points: History of DVT/PE Thrombosis Risk Factor Assessment Total Risk Factor Score: 5 Thrombosis Risk Factor Assessment Level: High Risk Assessment and Plan Time with Patient: Greater than 30
[2024-06-04] MEDS: CYANOCOBALAMIN 500 MCG TAB PO SCH (16:57)
[2024-06-04] MEDS: CHOLECALCIFEROL 25 MCG (1000 IU) TABLET PO SCH (16:58)
[2024-06-04] MEDS: ACETAMINOPHEN TAB 325 MG TAB PO PRN (21:23)
--- NOTE | 2024-06-04 21:31 | P.CONS ---
History of Present Illness - Reason for Consult Consult date: 06/04/24 breast cancer Requesting physician: Oren Bai - Chief Complaint Fall, diarrhea and weakness - History of Present Illness Martha is a very pleasant 64-year-old female patient of Dr. Jones with a history of breast cancer. She had an abnormal screening mammogram in September 2022, additional imaging showed a 2.8 cm lesion at 3:00 in the left breast and also a 1.1 cm left axillary node. 10/26/2022 biopsy of the left breast lesion in the left axilla were both positive for grade 3, invasive lobular carcinoma, ER/OH positive, HER2 negative 1+ by IHC. Oncotype DX revealed a recurrence score of 21, genetic testing done was negative. She ended up having back surgery in November 2022, nonmalignant reason, this surgery was complicated by by lower extremity DVT. MRI of breast revealed additional lesion in the right breast, MRI biopsy 01/25/2023 was positive for invasive ductal carcinoma. 01/30/2023 she had a left breast lumpectomy, pathology grade 2 ILC, 2.3 cm, 5/5 nodes positive for macrometastasis, medial margin was less than 1 mm. 02/09/2023 PET scan was negative for metastases. She started adjuvant dose dense AC and completed 4 cycles, followed by weekly Taxol x 12 weeks, treatment was completed 07/10/2023. 08/24/2023 she had bilateral mastectomy at [facility]. Pathology revealed no residual cancer in the left breast, there was residual multifocal, microinvasive cancer in the right breast and 1/1 right sentinel lymph node positive for macrometastases. She started letrozole in October 2023. Completed adjuvant radiation in December 2023. She started adjuvant Verzenio in January 2024. This had to be held in March due to worsening diarrhea. She was tried on a reduced dose just recently. She presents to the emergency department with complaints of a fall and injury to the right ankle. She had only been taking her reduced dose for less than a week when the diarrhea started, around Sunday, it persisted, she started taking antidiarrheals only helped a little bit, she continued having substantial episodes of diarrhea, likely dehydration leading to leg cramping and lightheadedness and that when she fell. She has a sprained ankle, no fracture. She is on blood thinners did not report head trauma. Since being inpatient and off Verzenio her creatinine is improved from 1.18-0.91, magnesium replaced 1.4, now 1.7. She only had a small amount of stool after breakfast. She denies any fevers, nausea, vomiting, shortness of breath or cough, chest pain, her abdomen is a little tender from the diarrhea but she is denying anything unrealistic, no dysuria or hematuria, her right ankle is wrapped in an [place] bandage with some swelling. Review of Systems 10 point review of systems is negative except as stated in HPI Past Medical History Past Medical History: Cancer, Deep Vein Thrombosis (DVT), Hyperlipidemia, Hypertension, Sleep Apnea/CPAP/BIPAP, Thyroid Disorder Additional Past Medical History / Comment(s): HX of breast cancer with lymphnod ectomy bilat. HX DVT currentlt Eloquis. History of Any Multi-Drug Resistant Organisms: None Reported Past Surgical History: Back Surgery, Tonsillectomy Additional Past Surgical History / Comment(s): Spinal cord stimulator, multiple back surgeries, colonoscopy. Past Anesthesia/Blood Transfusion Reactions: No Reported Reaction, Motion Sickness Additional Past Anesthesia/Blood Transfusion Reaction / Comm: Extremely difficult IV start, states had to to have central line for one of her back surgeries, has have Midline IV access as well. Past Psychological History: No Psychological Hx Reported Smoking Status: Former smoker Past Alcohol Use History: Rare Additional Past Alcohol Use History / Comment(s): Smoking quit many yrs ago. Past Drug Use History: None Reported - Past Family History Father Family Medical History: Cancer, Deep Vein Thrombosis (DVT), Pulmonary Embolus Additional Family Medical History / Comment(s): Lung cancer. Sister(s) Family Medical History: Cancer Medications and Allergies Home Medications Medication Instructions Recorded Confirmed Type DULoxetine HCL [Cymbalta] 30 mg PO DAILY 12/31/18 06/03/24 History DULoxetine HCL [Cymbalta] 60 mg PO HS 12/31/18 06/03/24 History Levothyroxine Sodium [Synthroid] 100 mcg PO DAILY 12/31/18 06/03/24 History Spironolactone [Aldactone] 25 mg PO DAILY 12/31/18 06/03/24 History carvediloL [Coreg] 25 mg PO BID 12/31/18 06/03/24 History methocarbamoL 500 mg PO TID 10/12/22 06/03/24 History Cholecalciferol [Vitamin D3 (25 25 mcg PO DAILY@1500 11/01/22 06/03/24 History Mcg = 1000 Iu)] Apixaban [Eliquis] 2.5 mg PO BID 06/03/24 06/03/24 History Cyanocobalamin (Vitamin B-12) 1,000 mcg PO DAILY@1500 06/03/24 06/03/24 History [Vitamin B-12] Gabapentin [Neurontin] 400 mg PO TID 06/03/24 06/03/24 History Letrozole [Femara] 2.5 mg PO DAILY 06/03/24 06/03/24 History Loperamide HCl [Imodium A-D] 2 mg PO Q4H PRN 06/03/24 06/03/24 History Meclizine [Antivert] 25 mg PO DAILY 06/03/24 06/03/24 History rOPINIRole HCL [Requip] 1 mg PO BID 06/03/24 06/03/24 History Allergies Allergy/AdvReac Type Severity Reaction Status Date / Time No Known Allergies Allergy Verified 06/03/24 16:41 Physical Exam Vitals: Vital Signs Temp Pulse Pulse Resp BP BP Pulse Ox 06/04/24 08:26 97.8 F 90 18 130/89 96 06/04/24 07:46 97.8 F 88 18 128/85 95 06/04/24 07:30 64 18 105/60 98 06/03/24 18:35 75 20 115/75 97 06/03/24 15:14 84 20 107/71 95 06/03/24 13:18 97.7 F 80 20 95/49 97 Intake and Output 06/03/24 06/04/24 06/04/24 22:59 06:59 14:59 Other: Weight 99.79 kg - Constitutional General appearance: cooperative, no acute distress, obese - EENT Eyes: anicteric sclerae, EOMI ENT: hearing grossly normal, thrush - Neck Neck: no lymphadenopathy - Respiratory Respiratory: bilateral: CTA - Cardiovascular Rhythm: regular Heart sounds: normal: S1, S2 Abnormal Heart Sounds: no systolic murmur, no diastolic murmur, no rub, no S3 Gallop, no S4 Gallop, no click, no other foot Peripheral Edema: right: 1+, left: Trace - Gastrointestinal General gastrointestinal: no absent bowel sounds, no decreased bowel sounds, no distended, no hepatomegaly, no hyperactive bowel sounds, normal bowel sounds, no organomegaly, no rigid, no scaphoid, soft, no splenomegaly, no tenderness, no umbilical hernia, no ventral hernia - Integumentary Integumentary: normal - Neurologic Neurologic: CNII-XII intact - Musculoskeletal Musculoskeletal: strength equal bilaterally - Psychiatric Psychiatric: A&O x's 3, appropriate affect, intact judgment & insight Results CBC & Chem 7: 06/04/24 07:12 06/04/24 07:12 Labs: Abnormal Lab Results - Last 24 Hours (Table) 06/03/24 06/03/24 06/03/24 Range/Units 14:10 14:10 17:08 WBC (3.8-10.6) k/uL Lymphocytes # 0.3 L (1.0-4.8) k/uL Sodium 130 L (137-145) mmol/L Carbon Dioxide 20 L (22-30) mmol/L BUN 19 H (7-17) mg/dL Creatinine 1.18 H (0.52-1.04) mg/dL Glucose 130 H (74-99) mg/dL Magnesium 1.4 L (1.6-2.3) mg/dL Total Protein 6.2 L (6.3-8.2) g/dL Albumin (3.5-5.0) g/dL Urine Protein Trace H (Negative) Urine Ketones 1+ H (Negative) 06/04/24 06/04/24 Range/Units 07:12 07:12 WBC 2.3 L (3.8-10.6) k/uL Lymphocytes # 0.3 L (1.0-4.8) k/uL Sodium 131 L (137-145) mmol/L Carbon Dioxide (22-30) mmol/L BUN 18 H (7-17) mg/dL Creatinine (0.52-1.04) mg/dL Glucose (74-99) mg/dL Magnesium (1.6-2.3) mg/dL Total Protein 5.4 L (6.3-8.2) g/dL Albumin 3.3 L (3.5-5.0) g/dL Urine Protein (Negative) Urine Ketones (Negative) Assessment and Plan (1) Diarrhea due to drug Current Visit: Yes Status: Acute Code(s): K52.1 - TOXIC GASTROENTERITIS AND COLITIS SNOMED Code(s): 820806092 (2) Hypomagnesemia Current Visit: Yes Status: Acute Priority: High Code(s): E83.42 - HYPOMAGNESEMIA SNOMED Code(s): 375596963 (3) Fall Current Visit: Yes Status: Acute Priority: High Code(s): W19.XXXA - UNSPECIFIED FALL, INITIAL ENCOUNTER SNOMED Code(s): 0343295 (4) Dehydration Current Visit: Yes Status: Acute Priority: High Code(s): E86.0 - DEHYDRATION SNOMED Code(s): 99981932 (5) Ankle sprain Current Visit: Yes Status: Acute Code(s): S93.409A - SPRAIN OF UNSP LIGAMENT OF UNSPECIFIED ANKLE, INIT ENCNTR SNOMED Code(s): 84052671 (6) Cancer of left breast Current Visit: Yes Status: Acute Priority: Medium Code(s): C50.912 - MALIGNANT NEOPLASM OF UNSPECIFIED SITE OF LEFT FEMALE BREAST SNOMED Code(s): 978516696 Plan: Diarrhea due to drug -Commonly known side effect of Verzenio is diarrhea. Patient has already had a dose reduction for the same. She just resumed this dose reduction in the last week with return of diarrhea very quickly. The diarrhea is also resolving fairl y quickly with discontinuation. She will follow-up with Dr. Jones for further recommendations. There is 1 other dose reduction. There are other medications that can be used as well. Patient verbalized understanding this plan. She will stay off the Verzenio for now Dehydration, low magnesium. Secondary to diarrhea. Creatinine improved with hydration, magnesium levels improved with supplementation. Fall. Subsequent to dehydration and subsequent dizziness. Patient does have an ankle sprain, no fracture Breast cancer -Diagnosis and treatment as documented in HPI -She will continue on letrozole and discontinue Verzenio for now. Follow-up with primary Medical Oncologist to discuss other dose reductions or other treatment options
[2024-06-05] MEDS: ONDANSETRON 4 MG/2 ML VIAL IVP PRN (00:44)
[2024-06-05] MEDS: SALT AND SODA MOUTHWASH 1,000 ML PO SCH (00:44)
[2024-06-05] MEDS: PANTOPRAZOLE 40 MG TABLET PO SCH (08:33)
[2024-06-05 11:32] LABS: African American GFR (CKD) >90 (>60 ml/min/1.73 sqM); Anion Gap 3 mmol/L; Blood Urea Nitrogen 13 mg/dL (7-17); Calcium 8.6 mg/dL (8.4-10.2); Carbon Dioxide 24 mmol/L (22-30); Chloride 109 mmol/L (98-107); Glucose 108 mg/dL (74-99); Magnesium 1.5 mg/dL (1.6-2.3); Non-African American GFR(CKD) 85 (>60 ml/min/1.73 sqM); Sodium 136 mmol/L (137-145)
[2024-06-05 12:51] LABS: HCT 38.1 % (34.0-46.0); HGB 12.5 gm/dL (11.4-16.0); Hypochromasia Slight; MCH 31.8 pg (25.0-35.0); MCHC 32.9 g/dL (31.0-37.0); MCV 96.7 fL (80.0-100.0); Mean Platelet Volume 6.4; Platelet Count 173 k/uL (150-450); RBC 3.94 m/uL (3.80-5.40); RDW 13.1 % (11.5-15.5); WBC 2.1 k/uL (3.8-10.6)
[2024-06-05 13:17] LABS: Band Neutrophils % 1 %; Eosinophils # (M) 0.21 k/uL (0-0.7); Lymphocytes # (M) 0.59 k/uL (1.0-4.8); Monocytes # (M) 0.11 k/uL (0-1.0); Neutrophils % (M) 56 %; Nucleated Red Blood Cells 0 /100 WBC (0-0); Total Cells Counted 100
--- NOTE | 2024-06-05 14:20 | P.PN ---
Subjective Progress Note Date: 06/05/24 Principal diagnosis: Diarrhea from drug, on adjuvant therapy for breast cancer In f/u today pt is ambulating with stand by assist and walker, denies dizziness at this time. Her rt foot is bruised and swollen. She was on the toilet for 2 hours because of diarrhea yesterday. Denies blood or mucus in the stool. She also had to get up in the night to stool. No fevers, tolerating oral intake. Objective - Vital Signs Vital signs: Vital Signs Temp 97.8 F 06/05/24 12:02 Pulse 77 06/05/24 12:02 Resp 16 06/05/24 12:02 BP 126/85 06/05/24 12:02 Pulse Ox 97 06/05/24 12:02 FiO2 Intake & Output 06/04/24 06/05/24 06/05/24 18:59 06:59 18:59 Intake Total 1198 Balance 1198 Intake: Oral 1198 Other: Voiding Method Toilet Toilet Toilet # Voids 2 3 # Bowel Movements 3 - Constitutional General appearance: Present: cooperative, no acute distress, obese - EENT Eyes: Present: anicteric sclerae, EOMI ENT: Present: hearing grossly normal - Respiratory Details: resp even and unlabored - Cardiovascular Details: skin warm, well perfused, radial pulse 2+, regular - Peripheral edema foot Peripheral Edema: right: 2+, left: Trace - Gastrointestinal General gastrointestinal: Present: hyperactive bowel sounds, soft. Absent: absent bowel sounds, decreased bowel sounds, distended, hepatomegaly, normal bowel sounds, organomegaly, rigid, scaphoid, splenomegaly, tenderness, umbilical hernia, ventral hernia - Integumentary Integumentary Comment(s): bruising to the rt ankle - Neurologic Neurologic: Present: CNII-XII intact - Musculoskeletal Musculoskeletal Comment(s): rt ankle tenderness, only very minimal wt bearing due to sprain - Psychiatric Psychiatric: Present: A&O x's 3, appropriate affect, intact judgment & insight - Labs CBC & Chem 7: 06/05/24 12:04 06/05/24 10:19 Labs: Abnormal Lab Results - Last 24 Hours (Table) 06/05/24 06/05/24 Range/Units 10:19 12:04 WBC 2.1 L (3.8-10.6) k/uL Neutrophils # (Manual) 1.10 L (1.3-7.7) k/uL Lymphocytes # (Manual) 0.59 L (1.0-4.8) k/uL Sodium 136 L (137-145) mmol/L Chloride 109 H (98-107) mmol/L Glucose 108 H (74-99) mg/dL Magnesium 1.5 L (1.6-2.3) mg/dL Assessment and Plan (1) Diarrhea due to drug Current Visit: Yes Status: Acute Code(s): K52.1 - TOXIC GASTROENTERITIS AND COLITIS SNOMED Code(s): 619015398 (2) Hypomagnesemia Current Visit: Yes Status: Acute Priority: High Code(s): E83.42 - HYPOMAGNESEMIA SNOMED Code(s): 381798629 (3) Fall Current Visit: Yes Status: Acute Priority: High Code(s): W19.XXXA - UNS PECIFIED FALL, INITIAL ENCOUNTER SNOMED Code(s): 2469781 (4) Dehydration Current Visit: Yes Status: Acute Priority: High Code(s): E86.0 - DEHYDRATION SNOMED Code(s): 74586738 (5) Ankle sprain Current Visit: Yes Status: Acute Code(s): S93.409A - SPRAIN OF UNSP LIGAMENT OF UNSPECIFIED ANKLE, INIT ENCNTR SNOMED Code(s): 99694293 (6) Cancer of left breast Current Visit: Yes Status: Acute Priority: Medium Code(s): C50.912 - MALIGNANT NEOPLASM OF UNSPECIFIED SITE OF LEFT FEMALE BREAST SNOMED Code(s): 219698396 Plan: Diarrhea due to drug -Commonly known side effect of Verzenio is diarrhea. Patient has already had a dose reduction for the same. She just resumed this dose reduction in the last week with return of diarrhea very quickly. The diarrhea is also resolving fairly quickly with discontinuation at least initially. Pt states diarrhea for nearly 2 hours yesterday. -Imodium scheduled, questran added. Have consulted Dietitian to modify pt diet for more soluable fiber. -She will follow-up with Dr. Jones for further recommendations regarding adjuvant breast cancer treatment. There is 1 other dose reduction. There are other medications that can be used as well. Patient verbalized understanding this plan. She will stay off the Verzenio Dehydration, low magnesium. Secondary to diarrhea. Creatinine improved with hydration, magnesium levels improved with supplementation, supplements cont as needed per IM Fall. Subsequent to dehydration and subsequent dizziness. Patient does have an ankle sprain, no fracture. Pt up in room with walker and stand by assist, no longer reporting any dizziness Breast cancer -Diagnosis and treatment as documented in consult -She will continue on letrozole and discontinue Verzenio. Follow-up with primary Medical Oncologist to discuss dose reductions vs other treatment options, appt in [place] plan
[2024-06-05 14:42] VITALS: BMI 37.8
[2024-06-05] MEDS: MAGNESIUM SULFATE-D5W PMX 1 GM in DEXTROSE/WATER 1 100ML.BAG IVPB SCH (14:50)
[2024-06-05] MEDS: LOPERAMIDE 2 MG CAP PO SCH (14:53)
[2024-06-05] MEDS: CHOLESTYRAMINE (WITH SUGAR) 4 GM PACKET PO SCH (16:42)
--- NOTE | 2024-06-06 05:35 | P.PN ---
Subjective Progress Note Date: 06/05/24 This is a very pleasant 64-year-old female who presented to the emergency department with increased weakness along with nausea and concerns of dehydration with significant diarrhea that have been ongoing for the last few days. Patient follows with Dr. Jones in the outpatient setting with a past medical history of breast cancer maintained on oral chemo medications although at a reduced rate as patient was on Femara and had previous symptoms of nausea vomiting diarrhea and has been working with oncology in the outpatient setting adjusting doses for patient to continue taking. Patient also reports she fell having right ankle pain with inability to ambulate. Images in the ER showed no evidence of acute fracture with subcutaneous swelling around the ankle. Positive pulses noted and there is some discoloration on the toe and patient reports she fell forward and her legs bended under her. Patient reports she does live alone and has a cane although will consult PT/OT therapy as patient may benefit from a walker on discharge. Labs reviewed on admission with a white count of 5.3, hemoglobin stable at 14.1, platelets 191, sodium 130, potassium 4.1, BUN 19, creatinine 1.18, glucose was 130, magnesium 1.4, urinalysis was done which was negative. Patient was admitted for dehydration and started on gentle hydration and admitted to the hospital for further evaluation. Consulted oncology and appreciate input and recommendations. Patient denies being around anybody sick, no recent fevers and no recent antibiotics. Magnesium was noted to be 1.4 and replaced with today's magnesium level being 1.7. Sodium is improved at 131 as well. Will continue hydration and monitor overnight and await PT/OT therapy evaluation. 06/05/2024 Patient is seen in follow-up this morning lethargic although arousable. Patient reports she had 4 episodes of diarrhea overnight and has been started on Ques valenzuela along with Imodium and continues with generalized weakness although feeling improved from admission. Oncology following recommend monitoring overnight for improvements in diarrhea prior to discharge. Patient is tolerating more diet and denies any further abdominal discomfort other than intermittent nausea last night. Patient encouraged to eat small frequent meals and set up out of the bed more often. Continue elevating right lower extremity and using [place] wraps on the ankle. Patient awaiting PT/OT therapy evaluation. Magnesium 1.5 and will replace. Review of systems: Constitutional: reports of fatigue, no fever, or chills Cardiovascular: No reports of chest pain or palpitations Respiratory: No reports of shortness of breath or cough GI: reports of remittent nausea although improving, denies vomiting, reports 4- 5 episodes of diarrhea : No reports of dysuria or retention Neurovascular: reports of generalized weakness continued right ankle discomfort All medications have been reviewed PHYSICAL EXAMINATION: GENERAL: The patient is lethargic although arousable, alert and oriented x3, not in any acute distress. Well developed, well nourished. Obese HEENT: Pupils are round and equally reacting to light. EOMI. No scleral icterus. No conjunctival pallor. Normocephalic, atraumatic. No pharyngeal erythema. No thyromegaly. CARDIOVASCULAR: S1 and S2 present. No murmurs, rubs, or gallops. PULMONARY: Chest is clear to auscultation, no wheezing or crackles. ABDOMEN: Soft, obese, nontender, nondistended, normoactive bowel sounds. No palpable organomegaly. MUSCULOSKELETAL: No joint swelling or deformity. EXTREMITIES: No cyanosis, clubbing, or pedal edema. NEUROLOGICAL: Gross neurological examination did not reveal any focal deficits. Generalized weakness SKIN: No rashes. Some bruising noted of the right ankle and right great toe status post fall, pale Assessment: Nausea and diarrhea, possibly acute gastritis secondary to chemo medication Dehydration with acute kidney injury secondary to above, improving History of breast cancer, stage III on oral chemo medication Right ankle pain status post fall, no fractures noted History of DVT Hyperlipidemia Hypertension Sleep apnea Hypothyroidism Former smoker Obesity with a BMI 37.8 GI prophylaxis DVT prophylaxis Full code Plan: Patient was admitted with generalized weakness and awaiting to have PT/OT flaco evaluate the patient and also noted to have right ankle pain and swelling status post fall. No fractures noted. Await further PT evaluation and recommendations Continue [place] wrapping and icing and elevating right lower extremity Home medications reviewed and resumed as appropriate Oncology following as patient follows with Dr. Jones in the outpatient setting maintained on oral chemo medications for breast cancer Follow-up on repeat labs and replace electrolytes per protocol. Magnesium sl ightly low at 1.5 and will replace Continue with Imodium as needed and Questran as patient continues to have frequent episodes of diarrhea. Sodium improved with gentle hydration and will continue. Encouraged patient to slowly increase oral intake with small frequent meals and advance as tolerated Possible discharge planning in the next 24 hours if diarrhea is improving The impression and plan of care has been dictated by Debora Bryant, Nurse Practitioner as directed. Dr. Sondra MD I have performed a history and examination and MDM of this patient, discussed the same with the dictator, and agree with the dictator's assessment and plan as written ,documented as a scribe. Based on total visit time, I have performed more than 50% of the visit. Objective - Vital Signs Vital signs: Vital Signs Temp 97.9 F 06/06/24 02:00 Pulse 75 06/06/24 02:00 Resp 16 06/06/24 02:00 BP 133/81 06/06/24 02:00 Pulse Ox 95 06/06/24 02:00 FiO2 Intake & Output 06/05/24 06/05/24 06/06/24 06:59 18:59 06:59 Weight 99.79 kg Other: Voiding Method Toilet Toilet Toilet # Voids 3 2 - Labs CBC & Chem 7: 06/05/24 12:04 06/05/24 10:19 Labs: Abnormal Lab Results - Last 24 Hours (Table) 06/05/24 06/05/24 Range/Units 10:19 12:04 WBC 2.1 L (3.8-10.6) k/uL Neutrophils # (Manual) 1.10 L (1.3-7.7) k/uL Lymphocytes # (Manual) 0.59 L (1.0-4.8) k/uL Sodium 136 L (137-145) mmol/L Chloride 109 H (98-107) mmol/L Glucose 108 H (74-99) mg/dL Magnesium 1.5 L (1.6-2.3) mg/dL
[2024-06-06 08:50] LABS: BUN/Creat Ratio 12.62 Ratio (12.00-20.00); Blood Urea Nitrogen 10.1 mg/dL (9.0-27.0); Calcium 8.8 mg/dL (8.7-10.3); Carbon Dioxide 22.8 mmol/L (21.6-31.8); Chloride 107 mmol/L (96-109); Glucose 97 mg/dL (70-110); Magnesium 1.8 mg/dL (1.5-2.4); Potassium 4.1 mmol/L (3.5-5.5); Sodium 138 mmol/L (135-145)
--- NOTE | 2024-06-06 15:10 | XR ---
EXAMINATION TYPE: XR foot complete RT DATE OF EXAM: 06/06/2024 2:45 PM COMPARISON: None. CLINICAL INDICATION: Female, 64 years old with history of Fall, bruising at digits 2-4, pain TECHNIQUE: XR foot complete RT XX views were obtained. FINDINGS: There is a virtually nondisplaced transversely oriented fracture at the base of the right second meta tarsal without intra-articular extension. Also on the lateral projection there is suggestion of chip fracture involving the base of the first metatarsal. The joint spaces appear within normal limits. D orsal soft tissue swelling noted. No radiopaque foreign body. IMPRESSION: Fractures of the first and second metatarsals as discussed above. [facility], , 06/06/2024 3:08 PM
--- NOTE | 2024-06-06 16:27 | P.PN ---
Subjective Progress Note Date: 06/06/24 This is a very pleasant 64-year-old female who presented to the emergency department with increased weakness along with nausea and concerns of dehydration with significant diarrhea that have been ongoing for the last few days. Patient follows with Dr. Jones in the outpatient setting with a past medical history of breast cancer maintained on oral chemo medications although at a reduced rate as patient was on Femara and had previous symptoms of nausea vomiting diarrhea and has been working with oncology in the outpatient setting adjusting doses for patient to continue taking. Patient also reports she fell having right ankle pain with inability to ambulate. Images in the ER showed no evidence of acute fracture with subcutaneous swelling around the ankle. Positive pulses noted and there is some discoloration on the toe and patient reports she fell forward and her legs bended under her. Patient reports she does live alone and has a cane although will consult PT/OT therapy as patient may benefit from a walker on discharge. Labs reviewed on admission with a white count of 5.3, hemoglobin sta ble at 14.1, platelets 191, sodium 130, potassium 4.1, BUN 19, creatinine 1.18, glucose was 130, magnesium 1.4, urinalysis was done which was negative. Patient was admitted for dehydration and started on gentle hydration and admitted to the hospital for further evaluation. Consulted oncology and appreciate input and recommendations. Patient denies being around anybody sick, no recent fevers and no recent antibiotics. Magnesium was noted to be 1.4 and replaced with today's magnesium level being 1.7. Sodium is improved at 131 as well. Will continue hydration and monitor overnight and await PT/OT therapy evaluation. 06/05/2024 Patient is seen in follow-up this morning lethargic although arousable. Patient reports she had 4 episodes of diarrhea overnight and has been started on Questra n along with Imodium and continues with generalized weakness although feeling improved from admission. Oncology following recommend monitoring overnight for improvements in diarrhea prior to discharge. Patient is tolerating more diet and denies any further abdominal discomfort other than intermittent nausea last night. Patient encouraged to eat small frequent meals and set up out of the bed more often. Continue elevating right lower extremity and using [place] wraps on the ankle. Patient awaiting PT/OT therapy evaluation. Magnesium 1.5 and will replace. 06/06/2024 Patient is evaluated in follow up she is more awake alert sitting up in the chair. Has not had diarrhea for the last few days. Her main concern with discharge home is her right foot pain and swelling. There is significant soft tissue swelling. Repeat xray of the right foot reveals fractures of the first and second metatarsals. Currently pending orthopedic evaluation. Electrolytes and renal function are within normal limits today. Review of systems: Constitutional: reports of fatigue, no fever, or chills Cardiovascular: No reports of chest pain or palpitations Respiratory: No reports of shortness of breath or cough GI: reports of remittent nausea although improving, denies vomiting, reports 4- 5 episodes of diarrhea : No reports of dysuria or retention Neurovascular: reports of generalized weakness continued right ankle discomfort All medications have been reviewed PHYSICAL EXAMINATION: GENERAL: The patient is lethargic although arousable, alert and oriented x3, not in any acute distress. Well developed, well nourished. Obese HEENT: Pupils are round and equally reacting to light. EOMI. No scleral icterus. No conjunctival pallor. Normocephalic, atraumatic. No pharyngeal erythema. No thyromegaly. CARDIOVASCULAR: S1 and S2 present. No murmurs, rubs, or gallops. PULMONARY: Chest is clear to auscultation, no wheezing or crackles. ABDOMEN: Soft, obese, nontender, nondistended, normoactive bowel sounds. No palpable organomegaly. MUSCULOSKELETAL: No joint swelling or deformity. EXTREMITIES: No cyanosis, clubbing, or pedal edema. NEUROLOGICAL: Gross neurological examination did not reveal any focal deficits. Generalized weakness SKIN: No rashes. Some bruising noted of the right ankle and right great toe status post fall, pale Assessment: Nausea and diarrhea, possibly acute gastritis secondary to chemo medication Dehydration with acute kidney injury secondary to above, improving First and second metatarsal fracture on the right post fall History of breast cancer, stage III on oral chemo medication Right ankle pain status post fall, no fractures noted History of DVT Hyperlipidemia Hypertension Sleep apnea Hypothyroidism Former smoker Obesity with a BMI 37.8 GI prophylaxis DVT prophylaxis Full code Plan: Patient was admitted with generalized weakness post fall PT has recommended home with home care and home physical therapy She does have evidence of fractures in the first and second digits on the right foot with significant swelling and bruising pending evaluation by orthopedics patient may need some type of walking splint prior to discharge. Continue [place] wrapping and icing and elevating right lower extremity Home medications reviewed and resumed as appropriate Oncology following as patient follows with Dr. Jones in the outpatient setting maintained on oral chemo medications for breast cancer Follow-up on repeat labs and replace electrolytes per protocol. Continue with Imodium as needed and Questran diarrhea has improved Sodium improved with gentle hydration and will continue. Encouraged patient to slowly increase oral intake with small frequent meals and advance as tolerated Discharge home once patient has been evaluated orthopedics which will likely be tomorrow as it is already in the afternoon. The impression and plan of care has been dictated by Katiuska Landon, Nurse Practitioner, as directed. Dr. Sondra MD I have performed a history and examination and MDM of this patient, discussed the same with the dictator, and agree with the dictator's assessment and plan as written ,documented as a scribe. Based on total visit time, I have performed more than 50% of the visit. Objective - Vital Signs Vital signs: Vital Signs Temp 97.9 F 06/06/24 14:00 Pulse 68 06/06/24 14:00 Resp 17 06/06/24 14:00 BP 112/71 06/06/24 14:00 Pulse Ox 98 06/06/24 14:00 FiO2 Intake & Output 06/05/24 06/06/24 06/06/24 18:59 06:59 18:59 Intake Total 590 Balance 590 Weight 99.79 kg Intake: Oral 590 Other: Voiding Method Toilet Toilet Toilet # Voids 2 3 - Labs CBC & Chem 7: 06/05/24 12:04 06/06/24 06:23 Assessment and Plan Time with Patient: Less than 30
--- NOTE | 2024-06-06 19:58 | P.CNOR ---
History of Present Illness - HPI Consult date: 06/06/24 Requesting physician: Katiuska Landon Consult reason: other (Right foot/toes bruising, soft tissue swelling post fall.) History of present illness: History of Presenting Illness Patient is a pleasant 64-year-old female who presented to the ER after a fall. Patient states that she does have a medical history of breast cancer and she began taking her chemo medications and started to not feel well. Patient reports that she feels like she has been dehydrated the last few days. She states she went to stand up and walk from the chair and it was like her legs gave out and her feet had folded underneath of her. Patient denies hitting her head, although she is on blood thinners. Our services were consulted due to right foot and toe bruising and soft tissue swelling. Patient does have an orthopedic history of multiple back surgeries with stimulator placement. Patient seen and examined this evening. Patient is sitting up in chair at bedside. Patient states that her pain is located in her right foot. She does report that her pain is managed on current regimen. No acute concerns at this time. Review of Systems Pertinent positives and negatives as discussed in HPI, a complete review of systems was performed and all other systems are negative. Physical Examination Inspection: Negative for any open fractures, there is ecchymosis to the plantar region of the right foot and over the second third and fourth toes. Patient does have noted edema of her right foot and ankle. Sensation: Sensation is equal, symmetric, bilaterally. Palpation: Nontender to palpation throughout bilateral upper and lower extremities and throughout spine exam Range of motion: Patient does have full range of motion bilateral upper and lower extremities on exam, patient does have limited range of motion of the right foot and ankle due to pain. Motor: Right: shoulder abduction 5/5, elbow flexors 5/5, wrist dorsiflexors 5/5. finger abductor 5/5, fire systems inspector 5/5, hip flexor 5/5, knee flexor 5/5, ankle dorsiflexor 4/5, ankle plantarflexion 4/5 and extensor hallucis 4/5. Left: shoulder abduction 5/5, elbow flexors 5/5, wrist dorsiflexors 5/5. finger abductor 5/5, fire systems inspector 5/5, hip flexor 5/5, knee flexor 5/5, ankle dorsiflexor 5/5, ankle plantarflexion 5/5 and extensor hallucis 5/5. Special tests: Negative Homans bilaterally. Negative Francisco bilaterally. Negative clonus bilaterally. Neurovascular: Radial pulse intact, 2+ bilaterally. Cap refill under 3 seconds in digits upper extremities. Assessment X-rays of the right ankle taken on 06/03/2024 demonstrates no evidence of acute fracture. Subcutaneous swelling around the ankle. X-rays of the right foot taken on 06/06/2024 demonstrates fractures of the first and second metatarsal. Fall from standing Right ankle swelling First and second metatarsal fractures Multiple medical comorbidities Plan At this time we do not recommend any emergent/urgent orthopedic surgical intervention. Recommend patient to follow-up with a foot and ankle specialist office for further evaluation. Orthopedics is signing off at this time. Please do not hesitate to contact us for any further questions. 2. Appreciate medical management 3. Pain management -continue with current regimen, Utilize ice therapy 20min every hour as needed. 4. Recommend use of a postop shoe or walking boot 6. PT/OT - weightbearing as tolerated with a walker as needed. 7. Appreciate consult. I reviewed and discussed this case with my attending Dr. Sandoval, whom has reviewed this chart and films and is in agreement with assessment and plan of care as outlined above. I have personally seen and examined the patient, performed the documentation and the assessment and plan as written. Number of minutes spent on the visit: 30m. Past Medical History Past Medical History: Cancer, Deep Vein Thrombosis (DVT), Hyperlipidemia, Hypertension, Sleep Apnea/CPAP/BIPAP, Thyroid Disorder Additional Past Medical History / Comment(s): HX of breast cancer with lymphnodectomy bilat. HX DVT currentlt Eloquis. History of Any Multi-Drug Resistant Organisms: None Reported Past Surgical History: Back Surgery, Tonsillectomy Additional Past Surgical History / Comment(s): Spinal cord stimulator, multiple back surgeries, colonoscopy. Past Anesthesia/Blood Transfusion Reactions: No Reported Reaction, Motion Sickness Additional Past Anesthesia/Blood Transfusion Reaction / Comm: Extremely difficult IV start, states had to to have central line for one of her back surgeries, has have Midline IV access as well. Past Psychological History: No Psychological Hx Reported Smoking Status: Former smoker Past Alcohol Use History: Rare Additional Past Alcohol Use History / Comment(s): Smoking quit many yrs ago. Past Drug Use History: None Reported - Past Family History Father Family Medical History: Cancer, Deep Vein Thrombosis (DVT), Pulmonary Embolus Additional Family Medical History / Comment(s): Lung cancer. Sister(s) Family Medical History: Cancer Medications and Allergies Home Medications Medication Instructions Recorded Confirmed Type DULoxetine HCL [Cymbalta] 30 mg PO DAILY 12/31/18 06/03/24 History DULoxetine HCL [Cymbalta] 60 mg PO HS 12/31/18 06/03/24 History Levothyroxine Sodium [Synthroid] 100 mcg PO DAILY 12/31/18 06/03/24 History Spironolactone [Aldactone] 25 mg PO DAILY 12/31/18 06/03/24 History carvediloL [Coreg] 25 mg PO BID 12/31/18 06/03/24 History methocarbamoL 500 mg PO TID 10/12/22 06/03/24 History Cholecalciferol [Vitamin D3 (25 25 mcg PO DAILY@1500 11/01/22 06/03/24 History Mcg = 1000 Iu)] Apixaban [Eliquis] 2.5 mg PO BID 06/03/24 06/03/24 History Cyanocobalamin (Vitamin B-12) 1,000 mcg PO DAILY@1500 06/03/24 06/03/24 History [Vitamin B-12] Gabapentin [Neurontin] 400 mg PO TID 06/03/24 06/03/24 History Letrozole [Femara] 2.5 mg PO DAILY 06/03/24 06/03/24 History Loperamide HCl [Imodium A-D] 2 mg PO Q4H PRN 06/03/24 06/03/24 History Meclizine [Antivert] 25 mg PO DAILY 06/03/24 06/03/24 History rOPINIRole HCL [Requip] 1 mg PO BID 06/03/24 06/03/24 History Cholestyramine (with Sugar) 4 gm PO BID@1000,1800 PRN 5 Days 06/06/24 Rx [Questran Packet] #10 packet Pantoprazole [Protonix] 40 mg PO [id number] #30 tab 06/06/24 Rx Allergies Allergy/AdvReac Type Severity Reaction Status Date / Time No Known Allergies Allergy Verified 06/03/24 16:41 Results - Labs Labs: H & H 06/03/24 06/04/24 06/05/24 Range/Units 14:10 07:12 12:04 Hgb 14.1 12.1 12.5 (11.4-16.0) gm/dL Hct 42.0 35.7 38.1 (34.0-46.0) % Result Diagrams: 06/05/24 12:04 06/06/24 06:23
[2024-06-06] MEDS ORDERED: LOPERAMIDE 2 MG CAP PO PRN (20:19)
--- NOTE | 2024-06-06 20:22 | P.PN ---
Subjective Progress Note Date: 06/06/24 No acute events. Denies vomiting and diarrhea, having mild int nausea. C/o right foot pain, ortho consulted for right toe fractures. Counts stable Objective - Vital Signs Vital signs: Vital Signs Temp 97.9 F 06/06/24 16:22 Pulse 68 06/06/24 16:22 Resp 16 06/06/24 16:22 BP 107/70 06/06/24 16:22 Pulse Ox 98 06/06/24 14:00 FiO2 Intake & Output 06/05/24 06/06/24 06/06/24 18:59 06:59 18:59 Intake Total 590 840 Balance 590 840 Weight 99.79 kg Intake: Oral 590 840 Other: Voiding Method Toilet Toilet Toilet # Voids 2 3 3 - Constitutional General appearance: Present: no acute distress, obese - EENT Eyes: Present: anicteric sclerae, EOMI ENT: Present: hearing grossly normal - Respiratory Details: breathing is even and unlabored - Cardiovascular Details: skin warm and dry - Gastrointestinal General gastrointestinal: Present: soft. Absent: tenderness - Integumentary Integumentary: Absent: cyanotic - Musculoskeletal Musculoskeletal Comment(s): bruising and edema noted to right foot/toes Musculoskeletal: Present: strength equal bilaterally - Psychiatric Psychiatric: Present: A&O x's 3 - Labs CBC & Chem 7: 06/05/24 12:04 06/06/24 06:23 Assessment and Plan (1) Cancer of left breast Current Visit: Yes Status: Acute Priority: Medium Code(s): C50.912 - MALIGNANT NEOPLASM OF UNSPECIFIED SITE OF LEFT FEMALE BREAST SNOMED Code(s): 218631562 (2) Dehydration Current Visit: Yes Status: Acute Priority: High Code(s): E86.0 - DEHYDRATION SNOMED Code(s): 32823554 (3) Diarrhea due to drug Current Visit: Yes Status: Acute Priority: Medium Code(s): K52.1 - TOXIC GASTROENTERITIS AND COLITIS SNOMED Code(s): 335554625 (4) Fall Current Visit: Yes Status: Acute Priority: High Code(s): W19.XXXA - UNSPECIFIED FALL, INITIAL ENCOUNTER SNOMED Code(s): 3596157 Plan: Diarrhea due to drug -Common side effect of Verzenio is diarrhea. Patient has already had a dose reduction for the same. She just resumed this dose reduction in the last week with return of diarrhea very quickly. The diarrhea is also resolving fairly quickly with discontinuation. -Have consulted Dietitian to modify pt diet for more soluable fiber. -Diarrhea resolved. PRN anti-diarrheals ordered -She will follow-up with Dr. Jones for further recommendations regarding adjuvant breast cancer treatment. There is 1 other dose reduction vs changing to Kisqali. Patient verbalized understanding this plan. Continue to hold Verzenio Dehydration, low magnesium. Secondary to diarrhea. Creatinine improved with hydration, magnesium levels improved with supplementation, supplements cont as needed per IM Fall. R/t dehydration and subsequent dizziness. Patient does have an ankle sprain, and right toe fractures, ortho consulted. Breast cancer -Diagnosis and treatment as documented in consult -She will continue on letrozole and discontinue Verzenio. Follow-up with primary Medical Oncologist to discuss dose reductions vs other treatment options, appt in [place] plan Doctor attests: I performed a history and physical examination of this patient, developed impression and plan of care. Discussed with dictator. I agree with dictators note, documented as a scribe.
[2024-06-07 07:59] VITALS: BP 131/85; PULSE 73; RESP 17; TEMP 97.6
--- NOTE | 2024-06-07 14:58 | P.DS ---
Providers Date of admission: 06/03/24 15:52 Attending physician: Gokul Castellanos Consults: 06/03/24 16:01 Consult Physician Routine Consulting Provider: Eze Ansari Consult Reason/Comments: Breast cancer Do you want consulting provider notified?: Yes 06/06/24 11:05 Consult Physician Routine Consulting Provider: Ede Sandoval Consult Reason/Comments: Right foot/toes bruising, soft tissue swelling post fall. Do you want consulting provider notified?: Yes Primary care physician: Arlette Sevilla Hospital Course: Final Diagnosis Nausea and diarrhea, possibly acute gastritis secondary to chemo medication Dehydration with acute kidney injury secondary to above, improving First and second metatarsal fracture on the right post fall History of breast cancer, stage III on oral chemo medication Right ankle pain status post fall, no fractures noted History of DVT Hyperlipidemia Hypertension Sleep apnea Hypothyroidism Former smoker Obesity with a BMI 37.8 Discharge Disposition Stable for discharge home she has been cleared by oncology services. Her diarrhea has significantly improved and her bowels are now normal. She will continue off of the Verzenio until follow-up with oncology in the office. Radha barton was evaluated by orthopedics will discharge with a postop shoe and will follow-up with podiatry in the office information has been given for Dr. Dominguez. Has a follow-up with her PCP Dr. Arlette Sevilla on 06/11 at 1 PM. Hospital Course This is a very pleasant 64-year-old female who presented to the emergency department with increased weakness along with nausea and concerns of dehydration with significant diarrhea that have been ongoing for the last few days. Patient follows with Dr. Jones in the outpatient setting with a past medical history of breast cancer maintained on oral chemo medications although at a reduced rate as patient was on Femara and had previous symptoms of nausea vomiting diarrhea and has been working with oncology in the outpatient setting adjusting doses for pat ient to continue taking. Patient also reports she fell having right ankle pain with inability to ambulate. Images in the ER showed no evidence of acute fracture with subcutaneous swelling around the ankle. Positive pulses noted and there is some discoloration on the toe and patient reports she fell forward and her legs bended under her. Patient reports she does live alone and has a cane although will consult PT/OT therapy as patient may benefit from a walker on discharge. Labs reviewed on admission with a white count of 5.3, hemoglobin stable at 14.1, platelets 191, sodium 130, potassium 4.1, BUN 19, creatinine 1.18, glucose was 130, magnesium 1.4, urinalysis was done which was negative. Patient was admitted for dehydration and started on gentle hydration and admitted to the hospital for further evaluation. Consulted oncology and appreciate input and recommendations. Patient denies being around anybody sick, no recent fevers and no recent antibiotics. Magnesium was noted to be 1.4 and replaced with today's magnesium level being 1.7. Sodium is improved at 131 as well. Since patient has been taken off of her oral chemo medication the Verzenio her diarrhea has improved she was continued on Questran and Imodium and has had a normal bowel movement today. Her right ankle and foot have had continued swelling despite ice compression and elevation with additional bruising over the toes. A complete right foot was done which shows fractures of the first and second metatarsals as well as dorsal soft tissue swelling. She did get up with physical therapy was cleared for discharge home with home PT and orthopedics was consulted did recommend a walking boot for the patient which was provided and patient has been cleared for discharge home. Blood work reveals a sodium level of 138, potassium 4.1, BUN of 10, creatinine 0.8, magnesium of 1.8. She is not having any chest pain or shortness of breath she denies any pain nausea vomiting or diarrhea. Discharged home. Please see medication reconciliation for a list of current medications. Thank you for allowing us to participate in the care of this patient. The impression and plan of care has been dictated by Katiuska Landon, Nurse Practitioner as directed. Dr. Sondra MD I have performed a history and physical examination and medical decision making of this patient, discussed the same with the dictator, and agree with the dictators assessment and plan as written, documented as a scribe. Based on total visit time, I have performed more than 50% of this visit. Patient Condition at Discharge: Stable Plan - Discharge Summary Discharge Rx Participant: Yes New Discharge Prescriptions: New Pantoprazole [Protonix] 40 mg PO AC-BRKFST #30 tab Cholestyramine (with Sugar) [Questran Packet] 4 gm PO BID@1000,1800 PRN 5 Days #10 packet PRN Reason: Diarrhea Continue Levothyroxine Sodium [Synthroid] 100 mcg PO DAILY DULoxetine HCL [Cymbalta] 60 mg PO HS DULoxetine HCL [Cymbalta] 30 mg PO DAILY carvediloL [Coreg] 25 mg PO BID Spironolactone [Aldactone] 25 mg PO DAILY methocarbamoL 500 mg PO TID Cholecalciferol [Vitamin D3 (25 Mcg = 1000 Iu)] 25 mcg PO DAILY@1500 Gabapentin [Neurontin] 400 mg PO TID Loperamide HCl [Imodium A-D] 2 mg PO Q4H PRN PRN Reason: Diarrhea rOPINIRole HCL [Requip] 1 mg PO BID Meclizine [Antivert] 25 mg PO DAILY Letrozole [Femara] 2.5 mg PO DAILY Cyanocobalamin (Vitamin B-12) [Vitamin B-12] 1,000 mcg PO DAILY@1500 Apixaban [Eliquis] 2.5 mg PO BID Discontinued Abemaciclib [Verzenio] 100 mg PO BID Discharge Medication List DULoxetine HCL [Cymbalta] 30 mg PO DAILY 12/31/18 [History] DULoxetine HCL [Cymbalta] 60 mg PO HS 12/31/18 [History] Levothyroxine Sodium [Synthroid] 100 mcg PO DAILY 12/31/18 [History] Spironolactone [Aldactone] 25 mg PO DAILY 12/31/18 [History] carvediloL [Coreg] 25 mg PO BID 12/31/18 [History] methocarbamoL 500 mg PO TID 10/12/22 [History] Cholecalciferol [Vitamin D3 (25 Mcg = 1000 Iu)] 25 mcg PO DAILY@1500 11/01/22 [History] Apixaban [Eliquis] 2.5 mg PO BID 06/03/24 [History] Cyanocobalamin (Vitamin B-12) [Vitamin B-12] 1,000 mcg PO DAILY@1500 06/03/24 [History] Gabapentin [Neurontin] 400 mg PO TID 06/03/24 [History] Letrozole [Femara] 2.5 mg PO DAILY 06/03/24 [History] Loperamide HCl [Imodium A-D] 2 mg PO Q4H PRN 06/03/24 [History] Meclizine [Antivert] 25 mg PO DAILY 06/03/24 [History] rOPINIRole HCL [Requip] 1 mg PO BID 06/03/24 [History] Cholestyramine (with Sugar) [Questran Packet] 4 gm PO BID@1000,1800 PRN 5 Days #10 packet 06/06/24 [Rx] Pantoprazole [Protonix] 40 mg PO AC-BRKFST #30 tab 06/06/24 [Rx] Follow up Appointment(s)/Referral(s): Arlette Sevilla MD [Primary Care Provider] - 06/11/24 1:00 pm (appointment with Eva Krmaer NP) Eulalia Dominguez DPM [STAFF PHYSICIAN] - 1 Week (Foot/Ankle specialist) Michele Jones MD [STAFF PHYSICIAN] - 06/25/24 11:45 am Ambulatory/Diagnostic Orders: Basic Metabolic Panel [LAB.AMB] Location: None Selected Complete Blood Count w/diff [LAB.AMB] Time Frame: 3 Days, Location: None Selected Patient Instructions/Handouts: Dehydration (DC), Hypomagnesemia (DC) Activity/Diet/Wound Care/Special Instructions: Continue to use walking boot as recommending and follow up with orthopedics in the office. Discharge Disposition: HOME WITH HOME HEALTH SERVICES
== END 2024-06-07 12:52 | disposition home health service (06) | DRG 394 ==
LOC: EC 13:17 → 5NMEDONC 15:52
PROVIDERS: ADMIT Hospitalist; ATTEND Hospitalist
DX: K52.1 Toxic gastroenteritis and colitis (principal); N17.9 Acute kidney failure, unspecified; K29.00 Acute gastritis without bleeding; S92.324A Nondisplaced fracture of second metatarsal bone, right foot, initial encounter for closed fracture; S92.314A Nondisplaced fracture of first metatarsal bone, right foot, initial encounter for closed fracture; S93.401A Sprain of unspecified ligament of right ankle, initial encounter; E86.0 Dehydration; E03.9 Hypothyroidism, unspecified; E66.9 Obesity, unspecified; Z68.37 Body mass index [BMI] 37.0-37.9, adult; E78.5 Hyperlipidemia, unspecified; E83.42 Hypomagnesemia; G47.30 Sleep apnea, unspecified; I10 Essential (primary) hypertension; T45.1X5A Adverse effect of antineoplastic and immunosuppressive drugs, initial encounter; W18.39XA Other fall on same level, initial encounter; Y99.8 Other external cause status; Z17.0 Estrogen receptor positive status [ER+]; Z17.21 Progesterone receptor positive status; Z17.32 Human epidermal growth factor receptor 2 negative status; Z79.01 Long term (current) use of anticoagulants; Z79.890 Hormone replacement therapy; Z79.811 Long term (current) use of aromatase inhibitors; Z79.899 Other long term (current) drug therapy; Z85.3 Personal history of malignant neoplasm of breast; Z90.13 Acquired absence of bilateral breasts and nipples; Z92.3 Personal history of irradiation; Z86.718 Personal history of other venous thrombosis and embolism; Z87.891 Personal history of nicotine dependence; Z80.1 Family history of malignant neoplasm of trachea, bronchus and lung
CPT/HCPCS: 36415; 80048; 80053; 81003; 83605; 83735; 85025; 93005; 96361; 96365; 96375; 99285

== ENCOUNTER → 2024-07-04 | Outpatient (CLI) | payer MEDICARE ==
--- NOTE | 2024-07-04 17:35 | XR ---
EXAMINATION TYPE: XR foot complete RT DATE OF EXAM: 07/04/2024 5:25 PM COMPARISON: 06/06/2024 CLINICAL INDICATION: Female, 64 years old with history of S92.312P DISP FX OF 1ST METATARSAL BONE, L FT, SUB; PHH, pain TECHNIQUE: XR foot complete RT examined in the AP, oblique, and lateral projections. FINDINGS: Redemonstration of injuries to the second and third metatarsals with bony remodeling changes. No new acute fractures visualized. The also be a fracture of the fourth metatarsal. Bipartite medial sesamoi d of the first digit. Fracture of the first metatarsal not well appreciated on today's exam due to an gle of radiograph. Calcaneal plantar spurring and Achilles enthesophyte formation present. IMPRESSION: Healing changes of the metatarsals, no new acute fractures. [facility], , 07/04/2024 5:33 PM
== END | disposition home or self-care (01) ==
LOC: RADXRMAIN 17:00
PROVIDERS: ATTEND Family Medicine
DX: S92.312 Displaced fracture of first metatarsal bone, left foot (principal)

== ENCOUNTER → 2024-07-31 | Outpatient (CLI) | payer MEDICARE ==
[~2024-07-31] MED LIST changes: -DEXAMETHASONE SOD PHOSPHATE 4 MG/ML 1 ML VIAL IV ONE; -HEPARIN SODIUM,PORCINE/PF 5,000 UNIT/0.5 ML SYRINGE SQ PRN; -HYDROmorphone 0.5 MG/0.5 ML SYRINGE IVP PRN; -LACTATED RINGERS 1,000 ML IV SCH; -LIDOCAINE 1% (10MG/ML) FOR IV START INTRADERMA PRN; -MIDAZOLAM 2 MG/2 ML VIAL IV PRN; -ONDANSETRON 4 MG/2 ML VIAL IVP ONE; -Pre Op ABX Message 1 EACH MISC MISCELLANE ONE; +SODIUM CHLORIDE 0.9% 250 ML in EMPTY BAG 1 BAG IV PRN
[2024-07-31 14:12] VITALS: BP 131/83; PULSE 76; RESP 16; TEMP 97.5
[2024-07-31] MEDS: SODIUM CHLORIDE 0.9% 500 ML 500 ML in EMPTY BAG 1 BAG IV PRN (14:17)
[2024-07-31] MEDS: ZOLEDRONIC ACID 4 MG in SODIUM CHLORIDE 0.9% 100 ML IV NR (14:17)
== END ==
LOC: PROCWHC3 14:01
PROVIDERS: ATTEND Internal Medicine Hematology & Oncology
DX: M81.0 Age-related osteoporosis without current pathological fracture (principal); C50.812 Malignant neoplasm of overlapping sites of left female breast
CPT/HCPCS: 96365; J1642; J3489

== ENCOUNTER → 2024-11-26 | Outpatient (CLI) | payer MEDICARE ==
--- NOTE | 2024-11-26 14:02 | BD ---
EXAMINATION TYPE: Axial Bone Density DATE OF EXAM: 11/26/2024 CLINICAL HISTORY: 64 years old Female. ICD-10 CODE: M810 AGE RELATED OSTEO , Additional History: Height: 63 in Weight: 214 lbs FRAX RISK QUESTIONS: History of Fracture in Adulthood: renay feet age 64 HISTORY OF: Surgery to Spine: 2018 MEDICATIONS: Thyroid Medications: yes Which medication: Synthroid How Lon+ years EXAM MEASUREMENTS: Bone mineral densitometry was performed using the Pulse 8 System. Bone mineral density about the R hip (g/cm2): 1.021 Bone mineral density about the L hip (g/cm2): 1.008 T Score values are as follows: -----R Neck: -1.4 -----L Neck: -1.0 -----R Total: 0.1 -----L Total: 0.0 Z Score values are as follows: -----R Neck: -0.7 -----L Neck: -0.3 -----R Total: 0.5 -----L Total: 0.4 Bone mineral density has: Decreased -8.7% since study of: 10/11/2022 Bone mineral density about the L Wrist (g/cm2): 0.575 T Score values are as follows: -----Dist. R+U: -1.9 -----Prox. R+U: -1.0 -----Radius total: -1.6 Z Score values are as follows: -----Dist. R+U: -0.7 -----Prox. R+U: 0.2 -----Radius total: -0.4 Bone mineral density has: Decreased -10.5% since study of: 10/11/2022 FRAX%s: The graph provided illustrates a 12.9% chance for a major osteoporotic fx and a 1.2% chance f or the hips probability for fx in 10 years time. IMPRESSION: Osteopenia (T Score between -2.5 and -1). There is slightly increased risk of fracture and the patient may be considered for treatment. Re-Screen 2-5 years. NOTE: T-SCORE=SD OF THE YOUNG ADULT MEAN. [facility], , 11/26/2024 1:59 PM
== END | disposition home or self-care (01) ==
LOC: RADBDWWP 13:01
PROVIDERS: ATTEND Family Medicine
DX: M81.0 Age-related osteoporosis without current pathological fracture (principal); M85.89 Other specified disorders of bone density and structure, multiple sites
CPT/HCPCS: 77080

== ENCOUNTER → 2025-01-29 | Outpatient (CLI) | payer MEDICARE ==
[2025-01-29 14:10] VITALS: BP 161/77; PULSE 67; RESP 16; TEMP 97.6
[2025-01-29] MEDS: SODIUM CHLORIDE 0.9% 500 ML 500 ML in EMPTY BAG 1 BAG IV PRN (14:20)
[2025-01-29] MEDS: ZOLEDRONIC ACID 4 MG in SODIUM CHLORIDE 0.9% 100 ML IV NR (14:20)
== END ==
LOC: PROCWHC3 13:56
PROVIDERS: ATTEND Internal Medicine Hematology & Oncology
DX: M81.0 Age-related osteoporosis without current pathological fracture (principal); C50.812 Malignant neoplasm of overlapping sites of left female breast
CPT/HCPCS: 96365; J3489

== ENCOUNTER → 2025-01-30 | Outpatient (CLI) | payer MEDICARE ==
--- NOTE | 2025-01-30 15:36 | XR ---
EXAMINATION TYPE: XR chest 2V DATE OF EXAM: 01/30/2025 3:00 PM COMPARISON: 08/20/2023 CLINICAL INDICATION: Female, 64 years old with history of R07.9 CHEST PAIN, UNSPECIFIED, , TECHNIQUE: Frontal and lateral views FINDINGS: Suspect buttonlike densities along either anterior chest wall relating to tissue expanders. The left anterior chest wall injection port with subclavian access and catheter tip at the lower SVC. Spinal s timulator array centered along the lower thoracic spinal canal. Heart upper limits of normal in size. Mild interstitial prominence of the chronic appearance. No consolidation or pleural effusion. IMPRESSION: 2 buttons along each anterior chest wall relating to tissue expanders. There are chronic changes with out acute process seen. [facility], , 01/30/2025 3:34 PM
== END | disposition home or self-care (01) ==
LOC: RADXRMAIN 14:23
PROVIDERS: ATTEND Surgery
DX: J98.4 Other disorders of lung (principal); R07.9 Chest pain, unspecified
CPT/HCPCS: 71046

== ENCOUNTER 2025-02-02 19:45 | Outpatient (CLI) | payer MEDICARE ==
--- NOTE | 2025-02-05 11:26 | P.PCN ---
Description of Procedure: POLYSOMNOGRAPHY REPORT PROCEDURE(S)/DATE(S): Polysomnography 02/02/2025 CLINICAL: Patient has been seen in the sleep center for evaluation of obstructive sleep apnea-hypopnea syndrome. Please see my consultation. Sleep study has been done for evaluation of patient breathing during the sleep. PROCEDURE: The standard montage for clinical polysomnography included the electroencephalogram, the electrooculogram, the mentalis surface electromyography and Lead II cardiography. The respiratory battery consisted of measurements of nasal/buccal air flow, pressure transducer measurements from nose, thoracic and/or abdominal effort and intercostal surface electromyography. Video monitoring has been done to check for any parasomnia events. Nocturnal oxyhemoglobin saturations were obtained by finger oximetry. Step-layton titration with positive airway pressure was utilized to control the respiratory events, if necessary. RESULTS: During the diagnostic sleep study sleep efficiency was slightly decreased to 85.1%. Latency to sleep onset was prolonged to 33.5 min. Sleep architecture showed stage NI was increased to 15.0%, Delta sleep was absent 0%, REM sleep was short 6.2%. Respiratory channel showed 0 obstructive apneas, 0 mixed apneas, 0 central apneas, 195 hypopneas with lowest oxygen level 73%. Total apnea hypopnea index was 33.0. Heart rate was in the range between 56 and 64, average 59. EMG showed 0 periodic limb movements per hour with 0 micro-arousals per hour. IMPRESSIONS: 1. Severe obstructive sleep apnea hypopnea syndrome. 2. No significant periodic limb movements have been documented. Please see other impressions from consultation PLAN: 1. The patient will have PAP titration for correction of respiratory abnormalities during the sleep. 2. Losing weight program. 3. Sleep hygiene with regular time in bed for at least 7-1/2 hours. 4. No driving if feeling sleepiness. Thank you very much for allowing me to participate in the management of your patient. Sincerely, Rohan Maldonado MD, PhD, FAASM. Diplomat of [place] [employer], Sleep Medicine Board by [place] [employer] Litigation Secretary of [facility] [place] cc: Arlette Sevilla MD
== END 2025-02-03 05:55 | disposition home or self-care (01) ==
LOC: 3 N SLEEP 19:45
PROVIDERS: ATTEND Internal Medicine
DX: G47.33 Obstructive sleep apnea (adult) (pediatric) (principal); Z87.891 Personal history of nicotine dependence
CPT/HCPCS: 95810